=== PATIENT | female | born 1955 | race Hispanic/Latino ===

== ENCOUNTER 2018-12-18 14:53 | Emergency (ER) | payer MEDICARE ==
[~2018-12-18] VITALS: Ht 160 cm; Wt 90.7 kg
[~2018-12-18 14:53] MED LIST: ATORVASTATIN CA80 MG PO; BENAZEPRIL-HCT1 EAC3 PO; CEFUROXIME250 MG PO; DIFLUCAN100 MG PO; ESTRADIOL1 MG PO; GABAPENTIN300 MG PO; GLIPIZIDE5 MG PO; KLONOPIN0.5 MG PO; LOSARTAN POTAS100 MG PO; METFORMIN HCL1000 MG PO; NOVOLOG MI100 UNIT/1 SQ; OMEPRAZOLE40 MG PO; PANTOPRAZOLE SO40 MG PO; VENLAFAXINE H37.5 MG PO; ZOLOFT50 MG PO
--- NOTE | 2018-12-18 15:45 | NUR ---
RADIOLOGY AT BEDSIDE FOR CXR AT THIS TIME.
[2018-12-18 15:51] LABS: BASOPHILS # (AUTO) 0.1 (0.0-0.1); BASOPHILS % 0.7 % (0.0-1.0); EOSINOPHILS # (AUTO) 0.3 (0.0-0.4); EOSINOPHILS % 3.3 % (0.0-6.0); HEMOGLOBIN 13.6 g/dL (12.0-16.0); LYMPHOCYTES # (AUTO) 1.5 (1.0-3.2); LYMPHOCYTES % 19.8 % (18.0-39.1); MEAN CORPUSCULAR HEMOGLOBIN 29.2 pg (28-32); MEAN CORPUSCULAR HGB CONC 33.2 g/dL (31-35); MEAN CORPUSCULAR VOLUME 88.2 fL (81-99); MONOCYTES # (AUTO) 0.4 (0.2-0.8); MONOCYTES % 4.7 % (4.4-11.3); NEUTROPHILS # (AUTO) 5.3 (2.1-6.9); NEUTROPHILS % 71.2 % (38.7-80.0); PLATELET COUNT 232 x10e3/uL (140-360); RED BLOOD COUNT 4.65 x10e6/uL (3.6-5.1); RED CELL DISTRIBUTION WIDTH 12.9 % (11.7-14.4)
[2018-12-18 15:58] LABS: INR 0.91; PARTIAL THROMBOPLASTIN TIME 28.1 seconds (23.8-35.5); PROTHROMBIN TIME 12.7 seconds (11.9-14.5)
[2018-12-18 16:10] LABS: ALANINE AMINOTRANSFERASE 40 IU/L (0-55); ALBUMIN 3.3 g/dL (3.5-5.0); ALKALINE PHOSPHATASE 160 IU/L (40-150); ANION GAP 12.1 mmol/L (8-16); BLOOD UREA NITROGEN 14 mg/dL (7-26); BUN/CREATININE RATIO 16 (6-25); CARBON DIOXIDE 26 mmol/L (22-29); CHLORIDE 97 mmol/L (98-107); CREATINE KINASE 35 IU/L (29-168); CREATININE, SERUM 0.87 mg/dL (0.57-1.11); EST GLOMERULAR FILTRATION RATE > 60 ML/MIN (60-); POTASSIUM 4.1 mmol/L (3.5-5.1); SODIUM 131 mmol/L (136-145)
[2018-12-18 16:12] LABS: GLUCOSE 477 mg/dL (74-118)
[2018-12-18] MEDS ORDERED: INSULIN REGULAR, HUMAN 100 UNIT/1 ML 3ML VIAL SQ ONE (16:15)
[2018-12-18 16:20] LABS: CLARITY,URINE HAZY (CLEAR); COLOR,URINE YELLOW (YELLOW); LEUKOCYTE ESTERASE ,URINE TRACE (NEGATIVE); NITRITE,URINE NEGATIVE (NEGATIVE)
[2018-12-18 16:21] LABS: BILIRUBIN,URINE NEGATIVE (NEGATIVE); KETONES,URINE NEGATIVE (NEGATIVE); PROTEIN,URINE DIPSTICK NEGATIVE (NEGATIVE); URINE UROBILINOGEN 0.2 mg/dL (0.2 - 1)
[2018-12-18 16:22] LABS: BACTERIA,URINE MANY /HPF; EPITHELIAL CELLS,URINE MODERATE /LPF
--- NOTE | 2018-12-18 16:26 | Diagnostic Imaging Report ---
EXAMINATION: CHEST SINGLE (PORTABLE) INDICATION: Chest pain. Left-sided chest pain near the breasts. COMPARISON: None FINDINGS: AP view TUBES and LINES: None. LUNGS: Lungs are well inflated. Bilateral peribronchial cuffing. There is no evidence of pneumonia or pulmonary edema. PLEURA: No pleural effusion or pneumothorax. HEART AND MEDIASTINUM: The cardiomediastinal silhouette is unremarkable. BONES AND SOFT TISSUES: No acute osseous lesion. Soft tissues are unremarkable. UPPER ABDOMEN: No free air under the diaphragm. IMPRESSION: 1. Suboptimal exam secondary to lung inspiration and mildly breathing motion artifact. 2. Bilateral peribronchial cuffing, which could represent viral etiology or reactive airway disease. Signed by: Dr. Gelacio Vargas M.D. on 12/18/2018 4:22 PM
[2018-12-18 17:46] VITALS: BP 147/72
== END 2018-12-18 17:55 | disposition left against medical advice (07) ==
LOC: ER 14:53
DX: R07.89 Other chest pain (principal); E11.65 Type 2 diabetes mellitus with hyperglycemia; E78.5 Hyperlipidemia, unspecified; F41.9 Anxiety disorder, unspecified; F32.9 Major depressive disorder, single episode, unspecified
CPT/HCPCS: 36415; 71045; 80053; 81001; 82550; 82553; 83880; 84484; 85025; 85610; 85730; 93005; 99284; J1817

== ENCOUNTER 2019-01-17 13:03 | Emergency (ER) | payer MEDICARE ==
[~2019-01-17] VITALS: Ht 160 cm; Wt 90.7 kg
--- OUTSIDE RECORDS SUMMARY | 2019-01-17 13:05 | XMS REPORT ---
Author Author [facility] Address Unknown Phone Unavailable Care Team Providers Care Editor Magazine Name Role Phone TONYAmador SULLIVAN Unavailable Unavailable Problems This patient has no known problems. Allergies, Adverse Reactions, Alerts This patient has no known allergies or adverse reactions. Medications This patient has no known medications. Results Test Description Test Time Test Comments Text Results Atomic Results Result Comments CHEST SINGLE (PORTABLE) 2018-12-18 16:21:00 [place] [address] Patient Name: LEIA MUELLER MR #: [id number] : 1955 Age/Sex: 63/F Req #: [id number] Adm Physician: Ordered by: IVETT SOFIA HOT BALLER Report #: [id number] Location: ER Room/Bed: Procedure: [id number] DX/CHEST SINGLE (PORTABLE) Exam Date: 12/18/18 Exam Time: 1548 REPORT STATUS: Signed EXAMINATION: CHEST SINGLE (PORTABLE) INDIC ATION: Chest pain. Left-sided chest pain near the breasts. COMPARISON: None FINDINGS: AP view TUBES and LINES: None. LUNGS: Lungs are well inflated. Bilateral peribronchial cuffing. There is no evidence of pneumonia or pulmonary edema. PLEURA: No pleural effusion or pneumothorax. HEART AND MEDIASTINUM: The cardiomediastinal silhouette is unremarkable. BONES AND SOFT TISSUES: No acute osseous lesion. Soft tissues are unremarkable. UPPER ABDOMEN: No free air under the diaphragm. IMPRESSION: 1. Suboptimal exam secondary to lung inspiration and mildly breathing motion artifact. 2. Bilateral peribronchial cuffing, which could represent viral etiology or reactive airway disease. Signed by: Dr. Catarina Vargas M.D. on 12/18/2018 4:22 PM Dictated By: CATARINA VARGAS MD 21 Transcribed By: CEE on 12/18/181621 COPY TO: IVETT SOFIA NP
[2019-01-17] MEDS ORDERED: KETOROLAC TROMETHAMINE 30 MG/ML VIAL IV STA (13:23)
[2019-01-17] MEDS ORDERED: ASPIRIN 81 MG CHEW TAB PO ONE (13:30)
[2019-01-17 14:27] LABS: BASOPHILS # (AUTO) 0.1 (0.0-0.1); BASOPHILS % 0.4 % (0.0-1.0); EOSINOPHILS # (AUTO) 0.1 (0.0-0.4); HEMATOCRIT 38.3 % (34.2-44.1); HEMOGLOBIN 12.9 g/dL (12.0-16.0); LYMPHOCYTES # (AUTO) 1.8 (1.0-3.2); LYMPHOCYTES % 15.7 % (18.0-39.1); MEAN CORPUSCULAR HEMOGLOBIN 29.5 pg (28-32); MEAN CORPUSCULAR HGB CONC 33.7 g/dL (31-35); MEAN CORPUSCULAR VOLUME 87.6 fL (81-99); MONOCYTES # (AUTO) 0.5 (0.2-0.8); MONOCYTES % 4.1 % (4.4-11.3); NEUTROPHILS # (AUTO) 8.9 (2.1-6.9); NEUTROPHILS % 78.4 % (38.7-80.0); PLATELET COUNT 274 x10e3/uL (140-360); RED BLOOD COUNT 4.37 x10e6/uL (3.6-5.1); RED CELL DISTRIBUTION WIDTH 13.3 % (11.7-14.4)
[2019-01-17 14:37] LABS: INR 0.91; PROTHROMBIN TIME 12.7 seconds (11.9-14.5)
[2019-01-17 14:38] LABS: PARTIAL THROMBOPLASTIN TIME 27.1 seconds (23.8-35.5)
[2019-01-17 14:45] LABS: ALBUMIN 3.1 g/dL (3.5-5.0); ALBUMIN/GLOBULIN RATIO 0.9 (0.8-2.0); ANION GAP 10.9 mmol/L (8-16); CALCIUM 9.4 mg/dL (8.4-10.2); CREATININE, SERUM 1.08 mg/dL (0.57-1.11); MAGNESIUM 1.8 MG/DL (1.3-2.1); POTASSIUM 3.9 mmol/L (3.5-5.1)
--- NOTE | 2019-01-17 14:48 | Diagnostic Imaging Report ---
EXAMINATION: PA and lateral views of the chest. COMPARISON: 12/18/2018 CLINICAL HISTORY: Chest pain DISCUSSION: Lungs are well-inflated. Linear opacity in the lingula compatible with subsegmental atelectasis. No airspace consolidation, pleural effusion, or pneumothorax. Tortuous thoracic aorta. Otherwise normal cardiomediastinal contour. No acute osseous abnormalities. Right upper quadrant surgical clips likely related to prior cholecystectomy. IMPRESSION: Subsegmental atelectasis in the lingula. Otherwise no acute cardiopulmonary abnormality. Signed by: Dr. Nemesio Armenta M.D. on 01/17/2019 2:44 PM
[2019-01-17 14:52] LABS: CREATINE KINASE MB 0.5 ng/mL (0-5.0)
[2019-01-17] MEDS ORDERED: INSULIN REGULAR, HUMAN 100 UNIT/1 ML 3ML VIAL SQ ONE (15:00)
[2019-01-17 16:08] LABS: BILIRUBIN,URINE NEGATIVE (NEGATIVE); CLARITY,URINE SL CLOUDY (CLEAR); COLOR,URINE YELLOW (YELLOW); KETONES,URINE NEGATIVE (NEGATIVE); LEUKOCYTE ESTERASE ,URINE NEGATIVE (NEGATIVE); NITRITE,URINE POSITIVE (NEGATIVE); PROTEIN,URINE DIPSTICK NEGATIVE (NEGATIVE); URINE UROBILINOGEN 0.2 mg/dL (0.2 - 1)
[2019-01-17] MEDS ORDERED: SODIUM CHLORIDE 0.9% 1000ML 1,000 ML IV STA (16:09)
[2019-01-17] MEDS ORDERED: SODIUM CHLORIDE 0.9% 1000ML 1,000 ML IV ONE (16:15)
[2019-01-17 16:20] LABS: BACTERIA,URINE MANY /HPF; WBC,URINE (MAN) 0-5 /HPF (0-5)
[2019-01-17 16:21] LABS: EPITHELIAL CELLS,URINE FEW /LPF
== END 2019-01-17 17:30 | disposition home or self-care (01) ==
LOC: ER 13:03
DX: R07.89 Other chest pain (principal); I10 Essential (primary) hypertension; E11.9 Type 2 diabetes mellitus without complications; E78.5 Hyperlipidemia, unspecified; F41.9 Anxiety disorder, unspecified; F32.9 Major depressive disorder, single episode, unspecified; Z87.440 Personal history of urinary (tract) infections; Z79.4 Long term (current) use of insulin
CPT/HCPCS: 36415; 71046; 80053; 81001; 82550; 82553; 82948; 83735; 83880; 84484; 85025; 85610; 85730; 87400; 93005; 99284; J1885; J7030

== ENCOUNTER 2019-04-03 10:36 | Emergency (ER) | payer MEDICARE ==
[~2019-04-03] VITALS: Ht 160 cm; Wt 90.7 kg
[2019-04-03] MEDS ORDERED: SODIUM CHLORIDE 0.9% 1000ML 1,000 ML IV STA (10:53)
[2019-04-03] MEDS ORDERED: LIDOCAINE VISC 2% SOLN 15 ML UDC PO ONE (11:30)
[2019-04-03] MEDS ORDERED: MAGNESIUM/ALUMINUM/SIMETHICONE 30 ML UDC PO ONE (11:30)
[2019-04-03] MEDS ORDERED: BELLADONNA ALK/PHENOBARBITAL 5 ML UDC PO ONE (11:30)
[2019-04-03] MEDS ORDERED: PANTOPRAZOLE 40 MG 10ML VIAL IV ONE (11:30)
[2019-04-03 12:40] LABS: BASOPHILS # (AUTO) 0.1 (0.0-0.1); BASOPHILS % 0.5 % (0.0-1.0); EOSINOPHILS # (AUTO) 0.2 (0.0-0.4); EOSINOPHILS % 1.7 % (0.0-6.0); HEMATOCRIT 39.7 % (34.2-44.1); HEMOGLOBIN 13.5 g/dL (12.0-16.0); LYMPHOCYTES # (AUTO) 1.8 (1.0-3.2); LYMPHOCYTES % 17.8 % (18.0-39.1); MEAN CORPUSCULAR HEMOGLOBIN 29.2 pg (28-32); MEAN CORPUSCULAR VOLUME 85.7 fL (81-99); MONOCYTES # (AUTO) 0.3 (0.2-0.8); MONOCYTES % 3.3 % (4.4-11.3); NEUTROPHILS # (AUTO) 7.8 (2.1-6.9); NEUTROPHILS % 76.4 % (38.7-80.0); PLATELET COUNT 291 x10e3/uL (140-360); RED BLOOD COUNT 4.63 x10e6/uL (3.6-5.1); RED CELL DISTRIBUTION WIDTH 13.6 % (11.7-14.4)
[2019-04-03] MEDS ORDERED: DICYCLOMINE HCL 20 MG/2 ML VIAL IM ONE (12:45)
--- NOTE | 2019-04-03 12:46 | Diagnostic Imaging Report ---
EXAM: CHEST SINGLE (PORTABLE), AP Portable DATE: 04/03/2019 Time stamp on exam: 11:25 AM INDICATION: Abdominal pain COMPARISON: None FINDINGS: LINES/TUBES: None LUNGS: No consolidations or edema. Linear scarring in the left costophrenic angle. PLEURA: No effusions or pneumothorax. HEART AND MEDIASTINUM: Normal size and contour. BONES AND SOFT TISSUES: No acute findings. IMPRESSION: No acute thoracic abnormality. Signed by: Dr. Mele Rhoades DO on 04/03/2019 12:42 PM
[2019-04-03 12:51] LABS: INR 0.93
[2019-04-03 12:52] LABS: PARTIAL THROMBOPLASTIN TIME 29.6 seconds (23.8-35.5)
[2019-04-03] MEDS ORDERED: MORPHINE SULFATE INJ 4 MG/ML INJ 1ML IV ONE (13:00)
[2019-04-03] MEDS ORDERED: CLONIDINE HCL 0.1 MG TAB PO ONE (13:00)
[2019-04-03] MEDS ORDERED: ONDANSETRON HCL INJ 2MG/ML 2ML 2 MG/ML VIAL IV ONE (13:00)
[2019-04-03 13:06] LABS: ALANINE AMINOTRANSFERASE 26 IU/L (0-55); ALBUMIN 3.6 g/dL (3.5-5.0); ALKALINE PHOSPHATASE 152 IU/L (40-150); AMYLASE 45 U/L (25-125); BLOOD UREA NITROGEN 10 mg/dL (7-26); BUN/CREATININE RATIO 12 (6-25); CALCIUM 9.2 mg/dL (8.4-10.2); CARBON DIOXIDE 28 mmol/L (22-29); CREATINE KINASE 60 IU/L (29-168); CREATININE, SERUM 0.84 mg/dL (0.57-1.11); EST GLOMERULAR FILTRATION RATE > 60 ML/MIN (60-); GLUCOSE 296 mg/dL (74-118); LIPASE 9 U/L (8-78)
[2019-04-03 13:15] LABS: CHLORIDE 97 mmol/L (98-107); SODIUM 135 mmol/L (136-145)
[2019-04-03 13:20] LABS: BILIRUBIN,URINE NEGATIVE (NEGATIVE); CLARITY,URINE CLEAR (CLEAR); COLOR,URINE YELLOW (YELLOW); KETONES,URINE NEGATIVE (NEGATIVE); LEUKOCYTE ESTERASE ,URINE MODERATE (NEGATIVE); NITRITE,URINE NEGATIVE (NEGATIVE); PROTEIN,URINE DIPSTICK NEGATIVE (NEGATIVE); URINE UROBILINOGEN 0.2 mg/dL (0.2 - 1)
[2019-04-03 13:38] LABS: BACTERIA,URINE MANY /HPF; EPITHELIAL CELLS,URINE FEW /LPF
[2019-04-03] MEDS ORDERED: SODIUM CHLORIDE 0.9% 50ML 50 ML ONE (15:02)
[2019-04-03] MEDS ORDERED: IOPAMIDOL 370 MG/ML 200 ML INFUS..BTL INJ ONE (15:02)
[2019-04-03] MEDS ORDERED: CYMBALTA20 MG PO (15:08)
[2019-04-03] MEDS ORDERED: LANTUS 3ML100 UNITS/ SQ ×2 (15:08)
--- NOTE | 2019-04-03 15:32 | Diagnostic Imaging Report ---
EXAM: CT of the abdomen and pelvis WITH contrast HISTORY: GORGE/LUQ ABD PAIN, chills, left upper quadrant pain, history of cholecystectomy, hysterectomy, tubal ligation COMPARISON: None. TECHNIQUE: The abdomen and pelvis were scanned utilizing a multidetector helical scanner. Coronal and sagittal reformats are provided. PROTOCOL: Routine IV CONTRAST: 100 cc of Isovue-370. ORAL CONTRAST: Water RADIATION DOSE: Total DLP: 828.78 mGy*cm Estimated effective dose: (DLP x 0.015 x size factor) Dose modulation, iterative reconstruction, and/or weight based adjustment of the mA/kV was utilized to reduce the radiation dose to as low as reasonably achievable. COMPLICATIONS: None FINDINGS: LOWER THORAX: Mild bilateral lower lobe atelectasis versus scarring. HEPATOBILIARY: Diffusely decreased attenuation of the liver. No mass. No biliary dilation. Metallic clips in the right upper quadrant of the abdomen are compatible with prior cholecystectomy. SPLEEN: No splenomegaly. PANCREAS: No focal masses or ductal dilatation. Diffuse parenchymal atrophy. ADRENALS: No discrete adrenal nodule. KIDNEYS/URETERS: No hydronephrosis, stones, or definite solid mass lesions. PELVIC ORGANS/BLADDER: The visualized pelvic organs appear unremarkable. GI TRACT: No dilation or wall thickening identified. The appendix is normal. The stomach is decompressed, which limits evaluation. PERITONEUM / RETROPERITONEUM: No free air or fluid. LYMPH NODES: No pathologically enlarged lymph node. VESSELS: Mild scattered atherosclerotic vascular calcifications. BONES: No aggressive osseous lesion or acute fracture. Mild to moderate multifocal degenerative changes. SOFT TISSUES: A small fat-containing umbilical hernia, without associated inflammatory changes to suggest vascular compromise. IMPRESSION: 1. No acute CT abnormality. 2. Hepatic steatosis. 3. Small fat-containing umbilical hernia. Signed by: Dr. Ezequiel Funes D.O., M.M.M. on 04/03/2019 3:29 PM
--- NOTE | 2019-04-05 17:47 | NUR ---
Pt's urine culture noted, medication changed to Macrobid 100 mg PO BID Pt informed of prescription change and urine culture results. Instructed to stop taking origianally prescription and to start Macrobid. [facility] [place] called [phone]
== END 2019-04-03 17:36 | disposition home or self-care (01) ==
LOC: ER 10:36
DX: N30.90 Cystitis, unspecified without hematuria (principal); K29.50 Unspecified chronic gastritis without bleeding; I10 Essential (primary) hypertension; E11.9 Type 2 diabetes mellitus without complications; F41.8 Other specified anxiety disorders; K21.9 Gastro-esophageal reflux disease without esophagitis; E78.5 Hyperlipidemia, unspecified; M19.90 Unspecified osteoarthritis, unspecified site; Z85.42 Personal history of malignant neoplasm of other parts of uterus; Z79.4 Long term (current) use of insulin
CPT/HCPCS: 36415; 71045; 74177; 80053; 81001; 82150; 82550; 82553; 83690; 83735; 84484; 85025; 85610; 85730; 87086; 87186; 93005; 99284; C9113; J0500; J7030; Q9967

== ENCOUNTER 2019-07-16 11:45 | Emergency (ER) | payer MEDICARE ==
[~2019-07-16] VITALS: Ht 160 cm; Wt 90.7 kg
[~2019-07-16 11:45] MED LIST changes: +CYMBALTA20 MG PO; +LANTUS 3ML100 UNITS/ SQ
[2019-07-16] MEDS ORDERED: DIATRIZOATE MEGL/DIATRIZOA SOD 30 ML BTL PO ONE (12:34)
[2019-07-16] MEDS ORDERED: PRAVASTATIN SOD40 MG PO (12:38)
[2019-07-16] MEDS ORDERED: ONDANSETRON ODT8 MG PO (12:38)
[2019-07-16 12:53] LABS: BASOPHILS # (AUTO) 0.1 (0.0-0.1); BASOPHILS % 0.7 % (0.0-1.0); EOSINOPHILS # (AUTO) 0.2 (0.0-0.4); HEMATOCRIT 42.6 % (34.2-44.1); HEMOGLOBIN 14.3 g/dL (12.0-16.0); LYMPHOCYTES # (AUTO) 2.4 (1.0-3.2); LYMPHOCYTES % 27.9 % (18.0-39.1); MEAN CORPUSCULAR HEMOGLOBIN 29.2 pg (28-32); MEAN CORPUSCULAR HGB CONC 33.6 g/dL (31-35); MEAN CORPUSCULAR VOLUME 87.1 fL (81-99); MONOCYTES # (AUTO) 0.3 (0.2-0.8); MONOCYTES % 3.4 % (4.4-11.3); NEUTROPHILS # (AUTO) 5.6 (2.1-6.9); NEUTROPHILS % 65.6 % (38.7-80.0); PLATELET COUNT 325 x10e3/uL (140-360); RED BLOOD COUNT 4.89 x10e6/uL (3.6-5.1); RED CELL DISTRIBUTION WIDTH 13.2 % (11.7-14.4)
[2019-07-16 13:03] LABS: ALANINE AMINOTRANSFERASE 35 IU/L (0-55); ALBUMIN 3.3 g/dL (3.5-5.0); ALBUMIN/GLOBULIN RATIO 0.9 (0.8-2.0); ALKALINE PHOSPHATASE 121 IU/L (40-150); ANION GAP 12.7 mmol/L (8-16); BLOOD UREA NITROGEN 10 mg/dL (7-26); BUN/CREATININE RATIO 12 (6-25); CALCIUM 9.4 mg/dL (8.4-10.2); CARBON DIOXIDE 29 mmol/L (22-29); CHLORIDE 101 mmol/L (98-107); CREATINE KINASE 32 IU/L (29-168); CREATININE, SERUM 0.82 mg/dL (0.57-1.11); EST GLOMERULAR FILTRATION RATE > 60 ML/MIN (60-); GLUCOSE 176 mg/dL (74-118); POTASSIUM 3.7 mmol/L (3.5-5.1); SODIUM 139 mmol/L (136-145)
[2019-07-16 13:10] LABS: BILIRUBIN,URINE NEGATIVE (NEGATIVE); CLARITY,URINE CLOUDY (CLEAR); COLOR,URINE YELLOW (YELLOW); KETONES,URINE NEGATIVE (NEGATIVE); LEUKOCYTE ESTERASE ,URINE MODERATE (NEGATIVE); NITRITE,URINE NEGATIVE (NEGATIVE); PROTEIN,URINE DIPSTICK NEGATIVE (NEGATIVE); URINE UROBILINOGEN 0.2 mg/dL (0.2 - 1)
[2019-07-16 13:17] LABS: WBC,URINE (MAN) >50 /HPF (0-5)
[2019-07-16 13:18] LABS: BACTERIA,URINE MANY /HPF; EPITHELIAL CELLS,URINE MANY /LPF; RBC,URINE 21-50 /HPF (0-5)
[2019-07-16] MEDS ORDERED: ONDANSETRON HCL INJ 2MG/ML 2ML 2 MG/ML VIAL IV STA (13:22)
[2019-07-16] MEDS ORDERED: CEFTRIAXONE SOD 1 GM/NS 50 ML 50 ML IV ONE (13:30)
[2019-07-16] MEDS ORDERED: FENTANYL CITRATE/PF 100MCG/2 ML INJ IV ONE (13:30)
--- NOTE | 2019-07-16 15:26 | Diagnostic Imaging Report ---
EXAM: CT Abdomen and Pelvis WITH intravenous contrast INDICATION: Abdominal pain, nausea COMPARISON: CT abdomen and pelvis of 04/03/2019 TECHNIQUE: Abdomen and pelvis were scanned utilizing a multidetector helical scanner from the lung base to the pubic symphysis after administration of IV contrast. Coronal and sagittal reformations were obtained. Routine protocol was performed. Scan was performed during portal venous phase. IV CONTRAST: 100mL of Isovue 370 ORAL CONTRAST: Gastrografin RADIATION DOSE: Total DLP: 841.9 mGy*cm Dose modulation, iterative reconstruction, and/or weight based adjustment of the mA/kV was utilized to reduce the radiation dose to as low as reasonably achievable. FINDINGS: LOWER THORAX: No focal consolidation HEPATOBILIARY: Diffuse hepatic steatosis. No focal liver lesion. No biliary ductal dilation. Status post cholecystectomy. SPLEEN: No splenomegaly. PANCREAS: No focal masses or ductal dilatation. ADRENALS: No adrenal nodules. KIDNEYS/URETERS: No hydronephrosis, stones, or solid mass lesions. PELVIC ORGANS/BLADDER: Status post hysterectomy. PERITONEUM / RETROPERITONEUM: No free air or fluid. LYMPH NODES: No lymphadenopathy. VESSELS: Mild scattered atherosclerotic calcifications of the nonaneurysmal abdominal aorta and major branches. GI TRACT: No abnormal bowel wall thickening. No bowel obstruction. BONES AND SOFT TISSUES: No acute osseous injury. No suspicious lytic or blastic lesions. Mild degenerative changes of the visualized spine. IMPRESSION: No acute findings in the abdomen or pelvis. Diffuse hepatic steatosis. Signed by: Leif Infante MD on 07/16/2019 3:23 PM
[2019-07-16 15:44] VITALS: BP 153/80
[2019-07-16] MEDS ORDERED: IOPAMIDOL 370 MG/ML 200 ML INFUS..BTL INJ ONE (16:59)
[2019-07-16] MEDS ORDERED: SODIUM CHLORIDE 0.9% 50ML 50 ML ONE (16:59)
== END 2019-07-16 15:50 | disposition home or self-care (01) ==
LOC: ER 11:45
DX: R10.31 Right lower quadrant pain (principal); R11.2 Nausea with vomiting, unspecified; N30.91 Cystitis, unspecified with hematuria; I10 Essential (primary) hypertension; E11.9 Type 2 diabetes mellitus without complications
CPT/HCPCS: 36415; 74177; 80053; 81001; 82550; 82553; 82948; 84484; 85025; 99284; J0696; J2405; J3010; Q9967

== ENCOUNTER 2019-12-11 14:55 | Emergency (ER) | payer MEDICARE ==
[~2019-12-11] VITALS: Ht 160 cm; Wt 90.7 kg
[~2019-12-11 14:55] MED LIST changes: +ONDANSETRON ODT8 MG PO; +PRAVASTATIN SOD40 MG PO
[2019-12-11] MEDS ORDERED: PHENAZOPYRIDINE HCL 100 MG TAB PO ONE (15:30)
[2019-12-11] MEDS ORDERED: ACETAMINOPHEN/CODEINE 300MG - 30MG TAB PO ONE (15:30)
[2019-12-11 15:31] LABS: CLARITY,URINE CLOUDY (CLEAR); COLOR,URINE YELLOW (YELLOW)
[2019-12-11 15:32] LABS: BILIRUBIN,URINE NEGATIVE (NEGATIVE); KETONES,URINE NEGATIVE (NEGATIVE); LEUKOCYTE ESTERASE ,URINE NEGATIVE (NEGATIVE); NITRITE,URINE POSITIVE (NEGATIVE); PROTEIN,URINE DIPSTICK NEGATIVE (NEGATIVE); URINE UROBILINOGEN 0.2 mg/dL (0.2 - 1)
[2019-12-11 15:38] LABS: BACTERIA,URINE MANY /HPF; EPITHELIAL CELLS,URINE MANY /LPF; RBC,URINE 0-5 /HPF (0-5)
[2019-12-11] MEDS ORDERED: CEFTRIAXONE SOD 1 GM VIAL IM ONE (16:00)
[2019-12-11 16:30] VITALS: BP 140/80
== END 2019-12-11 16:49 | disposition home or self-care (01) ==
LOC: ER 15:34
DX: M54.5 Low back pain (principal); N39.0 Urinary tract infection, site not specified; I10 Essential (primary) hypertension; E11.9 Type 2 diabetes mellitus without complications; Z85.42 Personal history of malignant neoplasm of other parts of uterus
CPT/HCPCS: 81001; 87086; 87186; 99283; J0696

== ENCOUNTER 2019-12-11 18:18 | Emergency (ER) | payer MEDICARE ==
--- NOTE | 2019-12-11 18:58 | NUR ---
1822 AND 1830 CALLED AND NO ANSWER.
== END 2019-12-11 18:59 | disposition left against medical advice (07) ==
LOC: ER 18:18
DX: R69 Illness, unspecified (principal)

== ENCOUNTER 2020-02-28 07:45 | Observation (INO) | payer MEDICARE, OTHER ==
[~2020-02-28] VITALS: Ht 160 cm; Wt 90.7 kg
--- NOTE | 2020-02-28 08:11 | NUR ---
DR PEARSON RECEIVED EKG, PT SEEN BY . EMS REPORT AND EKG TO MD. PT PLACED ON FULL CARDIAC MONITORING, IV, EKG, UA ALL DONE. WARM BLANKETS GIVEN FOR COMFORT. PLAN OF CARE UPDATED TO PT.
[2020-02-28 08:22] LABS: BASOPHILS # (AUTO) 0.1 (0.0-0.1); BASOPHILS % 0.6 % (0.0-1.0); EOSINOPHILS # (AUTO) 0.2 (0.0-0.4); EOSINOPHILS % 2.7 % (0.0-6.0); HEMATOCRIT 40.6 % (34.2-44.1); HEMOGLOBIN 13.4 g/dL (12.0-16.0); LYMPHOCYTES # (AUTO) 2.4 (1.0-3.2); LYMPHOCYTES % 26.9 % (18.0-39.1); MEAN CORPUSCULAR HEMOGLOBIN 29.1 pg (28-32); MEAN CORPUSCULAR VOLUME 88.3 fL (81-99); MONOCYTES # (AUTO) 0.4 (0.2-0.8); MONOCYTES % 4.6 % (4.4-11.3); NEUTROPHILS # (AUTO) 5.7 (2.1-6.9); NEUTROPHILS % 64.9 % (38.7-80.0); PLATELET COUNT 308 x10e3/uL (140-360); RED CELL DISTRIBUTION WIDTH 13.2 % (11.7-14.4)
[2020-02-28 08:30] LABS: BILIRUBIN,URINE NEGATIVE (NEGATIVE); CLARITY,URINE CLEAR (CLEAR); COLOR,URINE STRAW (YELLOW); KETONES,URINE NEGATIVE (NEGATIVE); LEUKOCYTE ESTERASE ,URINE TRACE (NEGATIVE); NITRITE,URINE NEGATIVE (NEGATIVE); PROTEIN,URINE DIPSTICK NEGATIVE (NEGATIVE); URINE UROBILINOGEN 0.2 mg/dL (0.2 - 1)
[2020-02-28] MEDS ORDERED: ASPIRIN 81 MG CHEW TAB PO ONE (08:45)
[2020-02-28 08:54] LABS: ALANINE AMINOTRANSFERASE 17 IU/L (0-55); ALBUMIN 3.3 g/dL (3.5-5.0); ALBUMIN/GLOBULIN RATIO 0.9 (0.8-2.0); ALKALINE PHOSPHATASE 130 IU/L (40-150); ANION GAP 15.7 mmol/L (8-16); BLOOD UREA NITROGEN 17 mg/dL (7-26); BUN/CREATININE RATIO 19 (6-25); CARBON DIOXIDE 25 mmol/L (22-29); CHLORIDE 100 mmol/L (98-107); CREATINE KINASE 51 IU/L (29-168); CREATININE, SERUM 0.89 mg/dL (0.57-1.11); EST GLOMERULAR FILTRATION RATE > 60 ML/MIN (60-); GLUCOSE 390 mg/dL (74-118); POTASSIUM 3.7 mmol/L (3.5-5.1); SODIUM 137 mmol/L (136-145)
--- NOTE | 2020-02-28 09:40 | Diagnostic Imaging Report ---
X-ray chest AP portable History: Chest pain Comparison: 04/03/2019 Findings: Central airways unremarkable. Heart size borderline for this technique. Other mediastinal silhouettes unremarkable. Chronic left basilar linear opacity likely representing a scar. No pleural effusion. No pneumothorax. No other focal lung disease. Skeleton and extrathoracic soft tissues show no significant acute abnormality. Impression: No acute cardiopulmonary disease on this exam. Signed by: Ananda Mello MD on 02/28/2020 9:36 AM
--- NOTE | 2020-02-28 09:42 | NUR ---
Covid-19 swab obtained.
[2020-02-28 10:03] LABS: BACTERIA,URINE MANY /HPF; EPITHELIAL CELLS,URINE FEW /LPF; RBC,URINE 0-5 /HPF (0-5)
--- NOTE | 2020-02-28 10:43 | Emergency Department Note ---
History of Present Illnes History of Present Illness Chief Complaint: General Medicine Complaints History of Present Illness This is a 64 year old female arrived to the ED with complaints of chest pain and shortness of breath woker her up from her sleep at 5am. Chief Complaint Comment AWOKE WITH BACK PAIN ACROSS LOWER BACK, PAIN NON RADIATING AT STERNUM, CHEST PAIN, SOB, DRY COUGH. NO FEVERS. AAOX4. AMBULATORY. GUARDING TO LOWER BACK. DENIES INJURY. STATES URG/FREQ NO DYSURIA. 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 Any updates have been documented here. Past Medical History Recent Fever: No Clinical Suspicion of Infectio: No New/Unexplained Change in Ment: No Past Medical History: Hypertension, Diabetes, Cancer, UTI's, Anxiety, Depression, GERD, Hyperlipedemia Other Medical History: ARTHRITIS UTERINE CANCER Past Surgical History: Cholecysctectomy, Hysterectomy, Tubal Ligation, Cataract Removal Other Surgery: CATARACTS TUBAL Laproscopic surgery Social History Smoking Cessation: Never Smoker Counseling Performed: No Alcohol Use: None Any Illegal Drug Use: No TB Exposure/Symptoms: No Physically hurt or threatened: No Other Last Tetanus: UTD Any Pre-Existing Lines (PICC,: Yes (PIV EMS) Is patient up to date on immun: Yes ("THINK SO") Last Flu: YES Last Pneumovax: YES Review of Systems Review of Systems Constitutional: no symptoms EENTM: no symptoms Cardiovascular: chest pain, palpitations Respiratory: dyspnea Gastrointestinal: no symptoms Genitourinary: no symptoms Musculoskeletal: no symptoms Neurological: no symptoms Psychological: no symptoms Endocrine: no symptoms Hematological/Lymphatic: no symptoms Review of other systems All other systems reviewed and negative. Physical Exam Related Data Allergies: Coded Allergies: promethazine (Verified Allergy, Unknown, ANXIETY, 04/03/19) tramadol (Verified Adverse Reaction, Mild, NAUSEA, 04/03/19) metoclopramide (Verified Adverse Reaction, Unknown, ANXIETY, 04/03/19) CLARIFIED W/ DR. JACKSON THAT PATIENT'S REACTION WAS ANXIETY. MD OKED TO CHANGE TO ADR. Triage Vital Signs Vital Signs Date Time Temp Pulse Resp B/P (MAP) Pulse Ox O2 Delivery O2 Flow Rate FiO2 02/28/20 07:45 98.7 105 28 170/100 100 Vital signs reviewed: Yes Physical Exam CONSTITUTIONAL Constitutional: well-developed, well-nourished HENT HENT: normocephalic, atraumatic, oropharynx clear/moist, nose normal HENT L/R: left ext ear normal, right ext ear normal EYES Eyes: PERRL, conjunctivae normal NECK Neck: ROM normal PULMONARY Pulmonary: effort normal, breath sounds normal CARDIOVASCULAR Cardiovascular: regular rhythm, heart sounds normal, capillary refill normal, normal rate GASTROINTESTINAL Abdominal: soft, nontender, bowel sounds normal GENITOURINARY Genitourinary: exam deferred SKIN Skin: warm, dry MUSCULOSKELETAL Musculoskeletal: ROM normal NEUROLOGICAL Neurological: alert, oriented x 3, no gross motor or sensory deficits PSYCHOLOGICAL Psychological: mood/affect normal, judgement normal Results Laboratory Result Diagram: 02/28/20 0800 02/28/20 0800 Laboratory Laboratory Tests Test 02/28/20 09:37 02/28/20 08:00 White Blood Count 8.75 x10e3/uL (4.8-10.8) Red Blood Count 4.60 x10e6/uL (3.6-5.1) Hemoglobin 13.4 g/dL (12.0-16.0) Hematocrit 40.6 % (34.2-44.1) Mean Corpuscular Volume 88.3 fL (81-99) Mean Corpuscular Hemoglobin 29.1 pg (28-32) Mean Corpuscular Hemoglobin Concent 33.0 g/dL (31-35) Red Cell Distribution Width 13.2 % (11.7-14.4) Platelet Count 308 x10e3/uL (140-360) Neutrophils (%) (Auto) 64.9 % (38.7-80.0) Lymphocytes (%) (Auto) 26.9 % (18.0-39.1) Monocytes (%) (Auto) 4.6 % (4.4-11.3) Eosinophils (%) (Auto) 2.7 % (0.0-6.0) Basophils (%) (Auto) 0.6 % (0.0-1.0) Neutrophils # (Auto) 5.7 (2.1-6.9) Lymphocytes # (Auto) 2.4 (1.0-3.2) Monocytes # (Auto) 0.4 (0.2-0.8) Eosinophils # (Auto) 0.2 (0.0-0.4) Basophils # (Auto) 0.1 (0.0-0.1) Absolute Immature Granulocyte (auto 0.03 x10e3/uL (0-0.1) Urine Color Straw (YELLOW) Urine Clarity Clear (CLEAR) Urine pH 7 (5 - 7) Urine Specific [place] 1.020 (1.010-1.025) Urine Protein Negative (NEGATIVE) Urine Glucose (UA) 2+ (NEGATIVE) Urine Ketones Negative (NEGATIVE) Urine Blood Trace (NEGATIVE) Urine Nitrite Negative (NEGATIVE) Urine Bilirubin Negative (NEGATIVE) Urine Urobilinogen 0.2 mg/dL (0.2 - 1) Urine Leukocyte Esterase Trace (NEGATIVE) Urine RBC 0-5 /HPF (0-5) Urine WBC 11-20 /HPF (0-5) Urine Epithelial Cells Few /LPF (NONE) Urine Bacteria Many /HPF (NONE) Sodium Level 137 mmol/L (136-145) Potassium Level 3.7 mmol/L (3.5-5.1) Chloride Level 100 mmol/L (98-107) Carbon Dioxide Level 25 mmol/L (22-29) Anion Gap 15.7 mmol/L (8-16) Blood Urea Nitrogen 17 mg/dL (7-26) Creatinine 0.89 mg/dL (0.57-1.11) Estimat Glomerular Filtration Rate > 60 ML/MIN (60-) BUN/Creatinine Ratio 19 (6-25) Glucose Level 390 mg/dL (74-118) Calcium Level 9.0 mg/dL (8.4-10.2) Total Bilirubin 0.3 mg/dL (0.2-1.2) Aspartate Amino Transf (AST/SGOT) 13 IU/L (5-34) Alanine Aminotransferase (ALT/SGPT) 17 IU/L (0-55) Alkaline Phosphatase 130 IU/L (40-150) Creatine Kinase 51 IU/L (29-168) Creatine Kinase MB 0.80 ng/mL (0-5.0) Troponin I < 0.001 ng/mL (0-0.300) B-Type Natriuretic Peptide 12.1 pg/mL (0-100) Total Protein 7.1 g/dL (6.5-8.1) Albumin 3.3 g/dL (3.5-5.0) Globulin 3.8 g/dL (2.3-3.5) Albumin/Globulin Ratio 0.9 (0.8-2.0) Lab results reviewed: Yes Imaging Imaging results reviewed: Yes Impressions Findings: Central airways unremarkable. Heart size borderline for this technique. Other mediastinal silhouettes unremarkable. Chronic left basilar linear opacity likely representing a scar. No pleural effusion. No pneumothorax. No other focal lung disease. Skeleton and extrathoracic soft tissues show no significant acute abnormality. Impression: No acute cardiopulmonary disease on this exam. 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 Clinical Decision Tools HEART Score HEART Score: HEART Score Response (Comments) Value History Moderately suspicious 1 EKG Normal 0 Age 45 - 65 1 Risk factors 3 or more risk factors OR hx of CAD 2 Troponin 1-3x normal limit Total 4 Assessment & Plan Assessment & Plan Final Impression: (1) Chest pain Assessment & Plan cbc, cmp, cardiac markers CXR High heart score Admission for stable angina and serial cardiac markers Last Vital Signs Date Time Temp Pulse Resp B/P (MAP) Pulse Ox O2 Delivery O2 Flow Rate FiO2 02/28/20 08:11 99 24 145/113 100 02/28/20 07:45 98.7 Home Meds Reported Medications Pravastatin Sodium (PRAVASTATIN SODIUM) 40 Mg Tablet, 40 MG PO HS 07/16/19 Ondansetron (ONDANSETRON ODT) 8 Mg Tab.rapdis, 4 MG PO Q6H PRN for NAUSEA 07/16/19 Insulin Glargine (LANTUS 3ML PEN) 100 Units/1 Ml Inj, 30 UNIT SQ HS 04/03/19 Duloxetine Hcl (CYMBALTA) 20 Mg Capcr, 20 MG PO HS, #30 CAP 04/03/19 Insuln Asp Prt/Insulin Aspart (NOVOLOG MIX 70-30 FLEXPEN SYRN) 100 Unit/1 Ml Insuln.pen, 20 UNITS SQ BID 05/21/17 Pantoprazole Sodium* (PROTONIX) 40 Mg Tablet.dr, 40 MG PO DAILY, TAB 01/19/17 Losartan Potassium (LOSARTAN POTASSIUM) 100 Mg Tablet, 100 MG PO DAILY, TAB 01/19/17 Glipizide (GLIPIZIDE) 5 Mg Tablet, 10 MG PO BID, TAB 01/19/17 Gabapentin (GABAPENTIN) 300 Mg Capsule, 600 MG PO TID, #60 CAP 06/29/15 Medications in the ED Aspirin 81 mg PRN ONCE PO Last administered on 02/28/20at 09:41; Admin Dose 81 MG; Start 02/28/20 at 08:45; Stop 02/28/20 at 09:19; Status DC PANFILO PEARSON DO February 28, 2020 10:43
[2020-02-28] MEDS ORDERED: NITROGLYCERIN 0.4 MG SUBL SL ONE (10:45)
--- NOTE | 2020-02-28 10:49 | NUR ---
unable to verify home medications. Patient unable to recall the names and dosages.
[2020-02-28] MEDS ORDERED: KETOROLAC TROMETHAMINE 30 MG/ML VIAL IV STA (12:14)
--- NOTE | 2020-02-28 13:30 | NUR ---
informed ER MD of patient blood glucose level. Was told that she would place order in for appropriate medication.
--- NOTE | 2020-02-28 13:45 | NUR ---
attempted to call report however unable to speak with anyone.
--- NOTE | 2020-02-28 13:52 | NUR ---
attempted to call report again spoke with nurse was informed that she would call back.
[2020-02-28] MEDS ORDERED: ACETAMINOPHEN 325 MG TAB PO PRN (14:00)
[2020-02-28] MEDS ORDERED: DEXTROSE 50% SYRINGE 50 ML IV PRN (14:00)
[2020-02-28 15:00] VITALS: BP 157/92
[2020-02-28 15:47] VITALS: BP 157/92
[2020-02-28] MEDS ORDERED: INSULIN ASPART 70/30 100 UNITS/ML VIAL SC SCH (16:30)
[2020-02-28] MEDS: INSULIN REGULAR, HUMAN 100 UNIT/1 ML 3ML VIAL SQ SCH ×2 (17:00→21:00)
[2020-02-28] MEDS: GABAPENTIN 300 MG CAP PO SCH ×2 (17:00→20:35)
[2020-02-28 17:25] LABS: CREATINE KINASE 46 IU/L (29-168)
[2020-02-28 20:00] VITALS: BP 151/80
[2020-02-28] MEDS: DULOXETINE HCL 20 MG DELAYED RELEASE PO SCH (20:34)
[2020-02-28] MEDS: PRAVASTATIN 20 MG TAB PO SCH (20:35)
[2020-02-28] MEDS ORDERED: NON-FORMULARY MEDICATION (Pravastatin Sodium 40 MG) PO SCH (21:00)
[2020-02-29] VITALS (8 sets, daily range): BP systolic 132–165; BP diastolic 73–93
--- NOTE | 2020-02-29 01:16 | History and Physical ---
PRIMARY CARE PHYSICIAN: Dr. Nargis Isaacs at [facility] CHIEF COMPLAINT: Chest pain and lower back pain. HISTORY OF PRESENT ILLNESS: This is a 64-year-old female with past medical history of hypertension, diabetes, anxiety, depression, high cholesterol, GERD, and arthritis, presented to the ER with complaints of chest pain and lower back pain that started suddenly at 5 a.m. this morning. According to the patient, the pain woke her up from sleep and midsternal with no radiation to her arms, upper back, or neck area. She reports feeling a little dizzy and was gasping for air, but denied any cough, fever, chills, vomiting, or abdominal pain. She reports having severe lower back pain, she denies any trauma or fall recently. No ill contacts. She denies any dysuria, hematuria, or weakness in the lower extremities. We will admit the patient for further evaluation. PAST MEDICAL HISTORY: 1. Hypertension. 2. Diabetes. 3. High cholesterol. 4. GERD. 5. Arthritis. 6. Anxiety and depression. PAST SURGICAL HISTORY: She reports cataract in both eyes, tubal ligation, and hysterectomy. FAMILY MEDICAL HISTORY: Reports both mother and father have diabetes. SOCIAL HISTORY: She denies any tobacco, alcohol, or illicit drug use, she is . Lives at home. ALLERGIES: SHE IS ALLERGIC TO METHYL CHLORPROPAMIDE, PROMETHAZINE, AND TRAMADOL. REVIEW OF SYSTEMS: GENERAL: No fever or chills. HEENT: No vision changes. LUNGS: Mild shortness of breath, but no cough. CARDIOVASCULAR: Chest pain reported. GI: Mild nausea, but no vomiting. No abdominal pain. NEUROLOGIC: Alert, mild dizziness. MUSCULOSKELETAL: Lower back pain. SKIN: No rash. PHYSICAL EXAMINATION: VITAL SIGNS: Temperature 98.6, pulse is 90, respirations 20, blood pressure 157/92, pulse ox is 100% on room air. GENERAL: No acute distress. HEENT: Normocephalic, atraumatic. NECK: Supple. LUNGS: Clear to auscultation. CARDIOVASCULAR: Regular rate and rhythm. GI: Soft and nontender. NEUROLOGIC: Alert, awake, and oriented x3. MUSCULOSKELETAL: Moves all extremities. No edema noted. SKIN: Dry and intact. PSYCH: Calm. LABORATORY DATA: WBC 8.75, hemoglobin 13.4, hematocrit 40.6, platelet 308. Sodium 137, potassium 3.7, BUN is 17, creatinine is 0.89, estimated GFR is greater than 60, glucose is 390, calcium 9.0, AST 13, ALT 17, creatine kinase is 51, CK-MB 0.80, troponin is less than 0.001 x2. BNP is 4.1. Urine is straw colored, clear with trace blood and trace leukocytes with wbc's 10-20 K and many bacteria. Coronavirus PCR is pending. Chest x-ray, no acute cardiopulmonary disease. IMPRESSION AND PLAN: 1. Chest pain rule out acute coronary syndrome. Troponin x2 are negative so far. A 12-lead EKG pending. Pain is most likely musculoskeletal as it is midsternal and induced by palpation. Continue to trend troponins. 2. Lower back pain. She denies any trauma or fall. We will check x-ray of the lumbar spine. No weakness in the lower extremities noted. 3. Diabetes with hyperglycemia. Blood sugar 390 upon arrival. We will continue with sliding scale insulin coverage and 70/30 20 units b.i.d. per home. 4. Hypertension. Resume her home dose of losartan 100 mg daily. 5. History of anxiety and depression. We will resume her dose of Cymbalta. 6. Hyperlipidemia. We will check fasting lipid panel. 7. History of gastroesophageal reflux disease. We will continue home dose of Protonix. 8. Questionable urinary tract infection. Urinalysis noted with leuks and wbc's 11-20 K. We will await on cultures as she is asymptomatic. 9. Deep vein thrombosis prophylaxis. Ambulatory, not indicated. Dictated by MIKO Washington Keerthi Cosme MD MY/MODL /[id number] Pt seen and examined on 02/28/20. Agree with the findings and plan as documented by MIKO Abarca. SHARIF
[2020-02-29 01:50] LABS: CREATINE KINASE 40 IU/L (29-168)
[2020-02-29 06:22] LABS: CHOL/HDL RATIO 2.6 (3.0-3.6)
[2020-02-29 06:44] LABS: CREATINE KINASE 40 IU/L (29-168)
[2020-02-29] MEDS: PANTOPRAZOLE SOD 40 MG TABEC PO SCH (08:47)
[2020-02-29] MEDS: INSULIN REGULAR, HUMAN 100 UNIT/1 ML 3ML VIAL SQ SCH ×2 (08:51→13:03)
[2020-02-29] MEDS: LOSARTAN POTASSIUM 100 MG TAB PO SCH (08:52)
[2020-02-29] MEDS: ASPIRIN 81 MG ENTERIC COATED PO SCH (08:52)
[2020-02-29] MEDS: GABAPENTIN 300 MG CAP PO SCH ×3 (08:53→21:00)
--- NOTE | 2020-02-29 09:14 | Diagnostic Imaging Report ---
Exam: Lumbar spine 3 views Clinical history: Low back pain Findings: There is no evidence of acute fracture or malalignment. Degenerative disc disease is noted throughout the lumbar spine most pronounced at L4-5 and L5-S1 levels with loss in disc heights, marginal osteophytes, and endplate sclerosis. The patient is status post cholecystectomy. Retained feces are noted throughout the colon. Impression: 1. No radiographic evidence of acute osseous injury. Degenerative changes as noted. Signed by: Dr. Luis Almaraz MD on 02/29/2020 9:11 AM
[2020-02-29] MEDS: CARVEDILOL 3.125 MG TAB PO SCH ×2 (11:23→16:24)
[2020-02-29] MEDS ORDERED: DESLORATADINE5 MG PO (11:32)
[2020-02-29] MEDS ORDERED: MELOXICAM7.5 MG PO (11:35)
[2020-02-29] MEDS ORDERED: BUSPIRONE HCL5 MG PO (11:36)
[2020-02-29] MEDS ORDERED: FAMOTIDINE20 MG PO (11:38)
[2020-02-29] MEDS ORDERED: LANTUS 3ML100 UNITS/ SC ×2 (11:40→11:41)
[2020-02-29] MEDS: MELOXICAM 7.5 MG TAB PO PRN (13:20)
[2020-02-29] MEDS ORDERED: CEFTRIAXONE SOD 1 GM/NS 50 ML 50 ML IV SCH (14:30)
[2020-02-29] MEDS ORDERED: SODIUM CHLORIDE 0.9% 250ML 250 ML ONE (15:58)
[2020-02-29] MEDS: INSULIN LISPRO 100 UNIT/1 ML 3ML VIAL SQ SCH ×2 (16:06→21:00)
[2020-02-29] MEDS: GLIPIZIDE 5 MG TAB PO SCH (16:23)
[2020-02-29] MEDS: BUSPIRONE HCL 5 MG TAB PO SCH (16:24)
--- NOTE | 2020-02-29 16:24 | Diagnostic Imaging Report ---
Exam: CT abdomen and pelvis Clinical history: Pyelonephritis Technique: Helical images of the abdomen and pelvis were obtained without contrast DOSE REDUCTION: The exams was performed according to the departmental dose-optimization program which includes automated exposure control, adjustment of the mA and/or kV according to patient size and/or use of iterative reconstruction technique. Findings: The lung bases are clear. There is no evidence of pleural effusion. The cardiac size is within normal limits. The liver, spleen, pancreas, adrenal glands, and kidneys are unremarkable. The gallbladder has been removed. The small and large bowels are normal in caliber without evidence of obstruction. The appendix is normal in caliber. The bladder is moderately distended. The uterus and ovaries are not visualized. There is no evidence of lymphadenopathy or free fluid. Aorta and IVC are normal in caliber. Degenerative changes are noted throughout the lumbar spine with loss in disc heights. Impression: 1. No CT evidence of pyelonephritis. However, IV contrast was not given, complete evaluation was not possible. 2. Status post hysterectomy. Signed by: Dr. Luis Almaraz MD on 02/29/2020 4:21 PM
[2020-02-29] MEDS: DOCUSATE SODIUM 100 MG CAP PO SCH (21:00)
[2020-02-29] MEDS ORDERED: INSULIN GLARGINE 100 UNITS/ML VIAL SC SCH (21:00)
[2020-02-29] MEDS: DULOXETINE HCL 20 MG DELAYED RELEASE PO SCH (21:00)
[2020-02-29] MEDS: PRAVASTATIN 20 MG TAB PO SCH (21:00)
--- NOTE | 2020-02-29 21:35 | Progress Note ---
DATE: 02/29/2020 CHIEF COMPLAINT: Lower back pain. SUBJECTIVE: The patient reports chest pain has resolved and now mainly complaining of lower back pain. She denies any shortness of breath, chest pain, fever, chills, dysuria, or hematuria. She does have right lower quadrant abdominal tenderness and severe lower back pain. PHYSICAL EXAMINATION: VITAL SIGNS: Temperature is 98.3, pulse is 87, respirations 20, blood pressure 154/89, and pulse ox is 100% on room air. GENERAL: No acute distress. HEENT: Normocephalic, atraumatic. LUNGS: Clear to auscultation. CARDIOVASCULAR: Regular rate and rhythm. GI: Soft with right lower quadrant tenderness. NEUROLOGIC: Alert, awake, and oriented x3. MUSCULOSKELETAL: Moves all extremities. No edema noted. SKIN: Dry and intact. LABORATORY DATA: Troponin x4 is negative. Urine culture shows gram-negative bacillus, pending sensitivity. IMAGING: Lumbar x-ray shows no radiographic evidence of acute osseous injury, degenerative changes noted. CT abdomen and pelvis shows no evidence of pyelonephritis. IMPRESSION AND PLAN: 1. Chest pain, rule out acute coronary syndrome. Troponin x4 negative. Chest pain has resolved. Most likely musculoskeletal. Pain improved after one dose IV Toradol in ER. 2. Lower back pain. X-ray of lumbar spine was negative for acute changes, but continues to complain of severe pain. CT abdomen and pelvis was negative. MRI of lumbar spine is ordered to further evaluate. 3. Urinary tract infection. Urine culture was positive for gram-negative bacillus. We will start on Rocephin and await on sensitivity. 4. Diabetes with hyperglycemia. We will continue with sliding scale insulin coverage and 70/30 b.i.d. We will resume her home dose of glipizide. 5. Hypertension. Resume home dose of losartan 100 daily. 6. History of anxiety and depression. Resumed dose of Cymbalta. 7. Hyperlipidemia. LDL 34, no need for statin at this time. 8. History of gastroesophageal reflux disease. We will continue Protonix. 9. History of arthritis. Resume meloxicam. 10. Deep venous thrombosis prophylaxis, ambulatory not indicated. Plan is to continue current treatment. We will obtain MRI of the lumbar spine to further evaluate her back pain. Give Carvedilol for her elevated blood pressure. Dictated by Mayelin Abarca, ANP Yiching MD ESTER Chen/DAE /[id number] Pt seen and examined. Agree with the findings and plan documented by MIKO Abarca. SHARIF
[2020-03-01] VITALS: BP 148/77
[2020-03-01 04:00] VITALS: BP 128/80
[2020-03-01 08:20] VITALS: BP 140/78
[2020-03-01] MEDS: INSULIN LISPRO 100 UNIT/1 ML 3ML VIAL SQ SCH ×2 (08:28→11:44)
[2020-03-01] MEDS ORDERED: INSULIN GLARGINE 100 UNITS/ML VIAL SC SCH (09:00)
[2020-03-01 09:05] VITALS: BP 140/78
[2020-03-01] MEDS: GABAPENTIN 300 MG CAP PO SCH (09:05)
[2020-03-01] MEDS: BUSPIRONE HCL 5 MG TAB PO SCH (09:05)
[2020-03-01] MEDS: DOCUSATE SODIUM 100 MG CAP PO SCH (09:05)
[2020-03-01] MEDS: GLIPIZIDE 5 MG TAB PO SCH (09:05)
[2020-03-01] MEDS: PANTOPRAZOLE SOD 40 MG TABEC PO SCH (09:05)
[2020-03-01] MEDS: CARVEDILOL 3.125 MG TAB PO SCH (09:05)
[2020-03-01] MEDS: LOSARTAN POTASSIUM 100 MG TAB PO SCH (09:05)
[2020-03-01] MEDS: ASPIRIN 81 MG ENTERIC COATED PO SCH (09:05)
[2020-03-01] MEDS ORDERED: SODIUM CHLORIDE 0.9% 250ML 0 ML ONE (10:24)
[2020-03-01] MEDS: MELOXICAM 7.5 MG TAB PO PRN (10:26)
--- NOTE | 2020-03-01 11:11 | Diagnostic Imaging Report ---
MRI SPINE LUMBAR WO HISTORY: Low back pain for 2 days COMPARISON: Lumbar spine radiographs 02/28/2020; CT of the abdomen and pelvis 02/29/2020 and 07/16/2019 TECHNIQUE: Sagittal T1, sagittal T2, sagittal STIR, axial T2, coronal T2, and axial proton density weighted images of the lumbar spine were obtained without contrast. DISCUSSION: Number of non-rib bearing lumbar vertebral bodies: 5. Alignment: Normal lordosis. No scoliosis. Vertebrae: No evidence for fracture, or neoplasm. Small nodular T1 hyperintense lesions in the L1 and L3 vertebral bodies are benign hemangiomas. Conus medullaris: Normal, ends at T12-L1. Cauda equina: No masses or arachnoiditis. Posterior paraspinal muscles: Well preserved. No signal abnormalities. Soft tissues: No signal abnormalities. Mild to moderate multilevel disc degeneration is most prominent at L4-L5. There are nonspecific inflammatory endplate changes at L4-L5 and to a lesser extent at L3-L4. T12-L1: Patent canal and foramina. L1-L2: Disc bulge without significant canal or foraminal stenosis. L2-L3: Disc bulge without significant canal or foraminal stenosis. L3-L4: Mild canal stenosis due to asymmetric disc bulge towards the left and ligamentum flavum thickening. The left lateral recess is slightly effaced. The disc contacts the descending left L3 nerve root. Minimal left foraminal stenosis due to disc bulge and facet arthrosis. No significant right foraminal stenosis. L4-L5: Moderate canal stenosis due to disc bulge and ligamentum flavum thickening. Both lateral recesses are effaced. The disc contacts both descending L5 nerve roots. Mild bilateral foraminal stenoses due to disc bulge and facet arthrosis. Small left facet effusion with small posterior paraspinal synovial cyst. L5-S1: Moderate right and mild left foraminal stenosis due to asymmetric disc bulge towards the right and facet arthrosis. The disc contacts the exiting right L5 nerve root. No significant canal stenosis. IMPRESSION: 1. No evidence for acute fracture. 2. Mild to moderate multilevel disc degeneration, most prominent at L4-L5. Nonspecific inflammatory endplate changes at L4-L5 and to a lesser extent at L3-L4. 3. Moderate L4-L5 and mild L3-L4 degenerative canal stenoses. 4. Multilevel bilateral degenerative foraminal stenoses - moderate on the right at L5-S1. Disc bulge at L5-S1 contact the exiting right L5 nerve root. Signed by: Dr. Hilario Camacho M.D. on 03/01/2020 11:08 AM
[2020-03-01 12:00] VITALS: BP 154/84
[2020-03-01] MEDS ORDERED: MEROPENEM 500MG/ NS 50ML 50 ML IV SCH (12:00)
[2020-03-01] MEDS ORDERED: CIPRO500 MG PO (13:51)
--- NOTE | 2020-03-01 15:16 | NUR ---
Patient discharged home, prescription given, denies any pain or SOB, No distress noted, IV removed with tip intact, no ss of infiltration, transported via wc to front lobby, family here to pick her
--- NOTE | 2020-03-01 20:44 | Discharge Summary ---
PRIMARY CARE PHYSICIAN: Dr. Nargis Isaacs at [facility] DISCHARGE DIAGNOSES: 1. Chest pain, ruled out acute coronary syndrome. 2. Urinary tract infection with Escherichia coli ESBL. 3. Degenerative lower back pain. 4. Diabetes with hyperglycemia. 5. Hypertension. 6. History of anxiety and depression. 7. High cholesterol. 8. History of gastroesophageal reflux disease. 9. History of arthritis. CONSULTANTS: None. PROCEDURES: None. HISTORY: Per HPI. HOSPITAL COURSE: This is a 64-year-old female, who presented to the ER with complaint of chest pain and lower back pain. Her troponins x4 were negative, chest x-ray unremarkable, chest pain resolved post Toradol x1 in the ER, likely the pain is musculoskeletal. She continued to complain of the lower back pain. X-ray was negative for acute changes, so an MRI of the lumbar spine was ordered, which showed degenerative changes with moderate L4-L5 and mild L3-L4 degenerative canal stenosis with multiple bilateral degenerative foraminal stenosis and disk bulge at L5-S1 contact the exiting right L5 nerve root. She, however, has improved back pain, rating it 3 to 4 out of 10. She was also noted to have UTI. Urine culture was positive for Escherichia coli with ESBL, which is sensitive to Cipro, so we will discharge home today on Cipro 500 b.i.d. as she has no symptoms of the UTI. She is advised to follow up with Dr. Reis next week and the certified health education specialist if her back pain continues to worsen or reoccur. PHYSICAL EXAMINATION: VITAL SIGNS: Temperature 98.9, pulse is 95, respirations 20, blood pressure 154/84, and pulse ox is 99% on room air. GENERAL: In no acute distress. LUNGS: Clear. CARDIOVASCULAR: Regular rate and rhythm. GI: Soft and nontender. NEUROLOGIC: Alert, awake, and oriented. MUSCULOSKELETAL: Moves all extremities. PSYCH: Calm. CONDITION AT DISCHARGE: Improved and stable. DC MEDICATIONS: Please see medication reconciliation list. FOLLOWUP: Follow up with Dr. Isaacs next week. Total time of discharge is 34 minutes. Dictated by MIKO Washington Keerthi Cosme MD MY/MODL /[id number] Pt seen and examined. Agree with the findings and plan as documented by MIKO Abarca. SHARIF
== END 2020-03-01 15:09 | disposition home or self-care (01) ==
LOC: ER 07:45 → ERHOLD 08:45 → MED/SURG 14:27 → MED/SURG3 03-01 08:28 → OBSVTOIN 03-01 10:29 → INTOOBSV 03-01 10:29
PROVIDERS: ADMIT Internal Medicine; ATTEND Internal Medicine
DX: R07.89 Other chest pain (principal); N39.0 Urinary tract infection, site not specified; M48.061 Spinal stenosis, lumbar region without neurogenic claudication; I10 Essential (primary) hypertension; B96.20 Unspecified Escherichia coli [E. coli] as the cause of diseases classified elsewhere; Z16.12 Extended spectrum beta lactamase (ESBL) resistance; K21.9 Gastro-esophageal reflux disease without esophagitis; M19.90 Unspecified osteoarthritis, unspecified site; E11.65 Type 2 diabetes mellitus with hyperglycemia; Z88.8 Allergy status to other drugs, medicaments and biological substances; F41.9 Anxiety disorder, unspecified; F32.9 Major depressive disorder, single episode, unspecified; E78.5 Hyperlipidemia, unspecified; Z87.440 Personal history of urinary (tract) infections; Z85.42 Personal history of malignant neoplasm of other parts of uterus; Z90.49 Acquired absence of other specified parts of digestive tract; Z90.710 Acquired absence of both cervix and uterus; Z83.3 Family history of diabetes mellitus; Z79.4 Long term (current) use of insulin
CPT/HCPCS: 36415 ×2; 71045; 72100; 72148; 74176; 80053; 80061; 81001; 82550 ×2; 82553 ×2; 82948 ×3; 83880; 84484 ×2; 85025; 87086; 87186; 87635; 93005; 99284; G0378 ×3; J0696; J1815 ×3; J1817; J1885; J2185; J7050; S0164 ×2

== ENCOUNTER 2020-06-06 11:38 | Observation (INO) | payer MEDICARE ==
[~2020-06-06] VITALS: Ht 162.6 cm; Wt 93.9 kg
[~2020-06-06 11:38] MED LIST changes: +BUSPIRONE HCL5 MG PO; +CIPRO500 MG PO; +DESLORATADINE5 MG PO; +FAMOTIDINE20 MG PO; +LANTUS 3ML100 UNITS/ SC; +MELOXICAM7.5 MG PO
[2020-06-06] MEDS ORDERED: ASPIRIN 81 MG CHEW TAB PO ONE (12:00)
--- NOTE | 2020-06-06 12:04 | Emergency Department Note ---
History of Present Illnes History of Present Illness Chief Complaint: Chest Pain History of Present Illness This is a 65 year old female arrives to the ED with complaints of chest pain cough fever for the past one week. Chief Complaint Comment PATIENT IN FROM HOME WITH COMPLAINTS OF CHEST PAIN, COUGH, NAUSEA, AND HEADACHE X 1 WEEK; STATES WAS SEEN BY HER DOCTOR LAST WEEK AND GIVEN MEDICATIONS BUT SHE IS FEELING WORSE. PATIENT DENIES FEVER. PATIENT RATES PAIN 7/10. PATIENT ALERT AND ORIENTED, RESP EVEN AND NONLABORED, AMBULATORY WITHOUT ASSISTANCE Historian: Patient Arrival Mode: Car Onset (how long ago): week(s) Radiation: Reports non-radiation Severity: mild Duration (how long): week(s) Timing of current episode: intermittent Progression: waxing and waning Associated symptoms: Reports fever/chills Past Medical/Family History Physician Review I have reviewed the patient's past medical and family history. Any updates have been documented here. Past Medical History Recent Fever: No Clinical Suspicion of Infectio: Yes New/Unexplained Change in Ment: No Past Medical History: Hypertension, Diabetes, Cancer, Hyperlipedemia, Chronic Back Pain Other Medical History: HX OF UTERINE CANCER, GASTRITIS, GALL STONES, Past Surgical History: Hysterectomy Other Surgery: CATARACTS TUBAL Laproscopic surgery Social History Physically hurt or threatened: No Other Last Tetanus: UTD Review of Systems Review of Systems Constitutional: Reports as per HPI, Reports fever EENTM: Reports no symptoms Cardiovascular: Reports as per HPI, Reports chest pain Respiratory: Reports as per HPI, Reports cough Gastrointestinal: Reports no symptoms Genitourinary: Reports no symptoms Musculoskeletal: Reports no symptoms Integumentary: Reports no symptoms Neurological: Reports no symptoms Psychological: Reports no symptoms Endocrine: Reports no symptoms Hematological/Lymphatic: Reports no symptoms Physical Exam Related Data Allergies: Coded Allergies: promethazine (Verified Allergy, Unknown, ANXIETY, 06/06/20) tramadol (Verified Adverse Reaction, Mild, NAUSEA, 06/06/20) metoclopramide (Verified Adverse Reaction, Unknown, ANXIETY, 06/06/20) CLARIFIED W/ DR. JACKSON THAT PATIENT'S REACTION WAS ANXIETY. MD OKED TO CHANGE TO ADR. Triage Vital Signs Vital Signs Date Time Temp Pulse Resp B/P (MAP) Pulse Ox O2 Delivery O2 Flow Rate FiO2 06/06/20 11:40 98.0 106 18 162/93 100 Room Air Vital signs reviewed: Yes Physical Exam CONSTITUTIONAL Constitutional: Present well-developed, Present well-nourished, Present obese HENT HENT: Present normocephalic, Present atraumatic, Present oropharynx clear/moist, Present nose normal HENT L/R: Present left ext ear normal, Present right ext ear normal EYES Eyes: Reports PERRL, Reports conjunctivae normal NECK Neck: Present ROM normal PULMONARY Pulmonary: Present effort normal, Present breath sounds normal CARDIOVASCULAR Cardiovascular: Present regular rhythm, Present heart sounds normal, Present capillary refill normal, Present normal rate GASTROINTESTINAL Abdominal: Present soft, Present nontender, Present bowel sounds normal GENITOURINARY Genitourinary: Present exam deferred SKIN Skin: Present warm, Present dry MUSCULOSKELETAL Musculoskeletal: Present ROM normal NEUROLOGICAL Neurological: Present alert, Present oriented x 3, Present no gross motor or sensory deficits PSYCHOLOGICAL Psychological: Present mood/affect normal, Present judgement normal Results Laboratory Lab results reviewed: Yes Laboratory comments Laboratory Tests Test 06/06/20 11:52 White Blood Count 9.02 x10e3/uL (4.8-10.8) Red Blood Count 5.03 x10e6/uL (3.6-5.1) Hemoglobin 14.5 g/dL (12.0-16.0) Hematocrit 44.2 % (34.2-44.1) Mean Corpuscular Volume 87.9 fL (81-99) Mean Corpuscular Hemoglobin 28.8 pg (28-32) Mean Corpuscular Hemoglobin Concent 32.8 g/dL (31-35) Red Cell Distribution Width 14.0 % (11.7-14.4) Platelet Count 304 x10e3/uL (140-360) Neutrophils (%) (Auto) 65.2 % (38.7-80.0) Lymphocytes (%) (Auto) 28.2 % (18.0-39.1) Monocytes (%) (Auto) 4.0 % (4.4-11.3) Eosinophils (%) (Auto) 1.6 % (0.0-6.0) Basophils (%) (Auto) 0.7 % (0.0-1.0) Neutrophils # (Auto) 5.9 (2.1-6.9) Lymphocytes # (Auto) 2.5 (1.0-3.2) Monocytes # (Auto) 0.4 (0.2-0.8) Eosinophils # (Auto) 0.1 (0.0-0.4) Basophils # (Auto) 0.1 (0.0-0.1) Absolute Immature Granulocyte (auto 0.03 x10e3/uL (0-0.1) Sodium Level 138 mmol/L (136-145) Potassium Level 4.5 mmol/L (3.5-5.1) Chloride Level 102 mmol/L (98-107) Carbon Dioxide Level 25 mmol/L (22-29) Anion Gap 15.5 mmol/L (8-16) Blood Urea Nitrogen 14 mg/dL (7-26) Creatinine 0.84 mg/dL (0.57-1.11) Estimat Glomerular Filtration Rate > 60 ML/MIN (60-) BUN/Creatinine Ratio 17 (6-25) Glucose Level 293 mg/dL (74-118) Calcium Level 9.2 mg/dL (8.4-10.2) Total Bilirubin 0.3 mg/dL (0.2-1.2) Aspartate Amino Transf (AST/SGOT) 13 IU/L (5-34) Alanine Aminotransferase (ALT/SGPT) 18 IU/L (0-55) Alkaline Phosphatase 129 IU/L (40-150) Creatine Kinase 36 IU/L (29-168) Creatine Kinase MB 0.40 ng/mL (0-5.0) Troponin I < 0.001 ng/mL (0-0.300) Total Protein 7.2 g/dL (6.5-8.1) Albumin 3.6 g/dL (3.5-5.0) Globulin 3.6 g/dL (2.3-3.5) Albumin/Globulin Ratio 1.0 (0.8-2.0) Procedures 12 Lead ECG Interpretation ECG Interpretation : ECG: ECG 1 Account Development Associate: Interpreted by ED physician Rhythm: sinus tachycardia QRS axis: left ST segments normal: Yes Clinical Impression: normal ECG Assessment & Plan Medical Decision Making MDM 65-year-old female arrived to the ED with atypical complaints of chest pain. Patient seen at PCPs office and states pain is intermittent worsening exertion. Patient with a high heart score and require hospital admission for serial cardiac markers and EKG. Cardiology consult to be done at the discretion of primary admitting team. Assessment & Plan Final Impression: (1) Chest pain Depart Disposition: HOME, SELF-CARE Last Vital Signs Date Time Temp Pulse Resp B/P (MAP) Pulse Ox O2 Delivery O2 Flow Rate FiO2 06/06/20 11:40 98.0 106 18 162/93 100 Room Air Home Meds Active Scripts Ciprofloxacin Hcl (CIPRO) 500 Mg Tablet, 500 MG PO Q12H for 7 Days, #14 TAB Prov:LAUREN GARCIA DRUM SANDER OFFBEARER 03/01/20 Reported Medications Insulin Glargine (LANTUS 3ML PEN) 100 Units/1 Ml Inj, 20 UNITS SC HS 02/29/20 Insulin Glargine (LANTUS 3ML PEN) 100 Units/1 Ml Inj, 20 UNITS SC DAILY 02/29/20 Famotidine (FAMOTIDINE) 20 Mg Tab, 20 MG PO BID, #30 TAB 02/29/20 Buspirone Hcl (BUSPIRONE HCL) 5 Mg Tablet, 10 MG PO BID, #60 TAB 02/29/20 Meloxicam (MELOXICAM) 7.5 Mg Tablet, 15 MG PO DAILY PRN for pain, #30 TAB 02/29/20 Desloratadine (DESLORATADINE) 5 Mg Tablet, 1 TAB PO DAILY 02/29/20 Pravastatin Sodium (PRAVASTATIN SODIUM) 40 Mg Tablet, 40 MG PO HS 07/16/19 Duloxetine Hcl (CYMBALTA) 20 Mg Capcr, 40 MG PO HS, #30 CAP 04/03/19 Pantoprazole Sodium* (PROTONIX) 40 Mg Tablet.dr, 40 MG PO DAILY, TAB 01/19/17 Losartan Potassium (LOSARTAN POTASSIUM) 100 Mg Tablet, 100 MG PO DAILY, TAB 01/19/17 Glipizide (GLIPIZIDE) 5 Mg Tablet, 10 MG PO BID, TAB 01/19/17 Gabapentin (GABAPENTIN) 300 Mg Capsule, 600 MG PO TID, #60 CAP 06/29/15 Medications in the ED Aspirin 81 mg PRN ONCE PO ; Start 06/06/20 at 12:00; Stop 06/06/20 at 12:01 PANFILO PEARSON DO Jun 06, 2020 12:03
[2020-06-06 12:07] LABS: BASOPHILS # (AUTO) 0.1 (0.0-0.1); BASOPHILS % 0.7 % (0.0-1.0); EOSINOPHILS # (AUTO) 0.1 (0.0-0.4); EOSINOPHILS % 1.6 % (0.0-6.0); HEMATOCRIT 44.2 % (34.2-44.1); HEMOGLOBIN 14.5 g/dL (12.0-16.0); LYMPHOCYTES # (AUTO) 2.5 (1.0-3.2); LYMPHOCYTES % 28.2 % (18.0-39.1); MEAN CORPUSCULAR HEMOGLOBIN 28.8 pg (28-32); MEAN CORPUSCULAR HGB CONC 32.8 g/dL (31-35); MEAN CORPUSCULAR VOLUME 87.9 fL (81-99); MONOCYTES # (AUTO) 0.4 (0.2-0.8); NEUTROPHILS # (AUTO) 5.9 (2.1-6.9); NEUTROPHILS % 65.2 % (38.7-80.0); PLATELET COUNT 304 x10e3/uL (140-360); RED BLOOD COUNT 5.03 x10e6/uL (3.6-5.1)
[2020-06-06 12:25] LABS: ALANINE AMINOTRANSFERASE 18 IU/L (0-55); ALBUMIN 3.6 g/dL (3.5-5.0); ALKALINE PHOSPHATASE 129 IU/L (40-150); ANION GAP 15.5 mmol/L (8-16); BLOOD UREA NITROGEN 14 mg/dL (7-26); BUN/CREATININE RATIO 17 (6-25); CALCIUM 9.2 mg/dL (8.4-10.2); CARBON DIOXIDE 25 mmol/L (22-29); CHLORIDE 102 mmol/L (98-107); CREATINE KINASE 36 IU/L (29-168); CREATININE, SERUM 0.84 mg/dL (0.57-1.11); EST GLOMERULAR FILTRATION RATE > 60 ML/MIN (60-); GLUCOSE 293 mg/dL (74-118); POTASSIUM 4.5 mmol/L (3.5-5.1); SODIUM 138 mmol/L (136-145)
--- NOTE | 2020-06-06 14:01 | Diagnostic Imaging Report ---
EXAM: CHEST SINGLE (PORTABLE) DATE: 06/06/2020 12:30 PM INDICATION: Chest pain COMPARISON: 02/28/2020 FINDINGS: The trachea is midline. There is minimal left basilar opacity suggestive of atelectasis/scarring. The lungs are symmetrically expanded without evidence for large focal consolidation, pneumothorax, or significant pleural effusion. The cardiomediastinal silhouette and pulmonary vasculature are within normal limits. No acute osseous abnormality is identified. The surrounding soft tissues are unremarkable. IMPRESSION: No acute cardiopulmonary process identified. Signed by: Dr. Tino Wong MD on 06/06/2020 1:45 PM
--- NOTE | 2020-06-06 16:08 | Diagnostic Imaging Report ---
CT of the abdomen and pelvis, with contrast. History: Abdominal pain. Comparison: CT abdomen/pelvis without contrast from 02/29/2020. Technique: Multidetector CT scanning of the abdomen and pelvis was performed from the level of the lung bases to the inferior pubic rami after intravenous administration of contrast. Coronal and sagittal multiplanar reformations were obtained. RADIATION DOSE: Total DLP: 732.67 mGy*cm Dose modulation, iterative reconstruction, and/or weight based adjustment of the mA/kV was utilized to reduce the radiation dose to as low as reasonably achievable. FINDINGS: There is mild bibasilar atelectasis is present. The imaged portion of the heart demonstrates no significant abnormalities. The liver is normal in size but appears diffusely decreased in attenuation suggestive of fatty infiltration. No focal hepatic abdomen is identified.. The gallbladder is surgically absent. There is no intrahepatic biliary ductal dilatation. There is stable mild prominence of the common bile duct, likely reflecting reservoir phenomenon status post cholecystectomy. There is a small hiatal hernia present. The stomach is otherwise unremarkable. The spleen, pancreas, and bilateral adrenal glands are unremarkable. The kidneys are normal in size and location. There is no evidence for nephrolithiasis or hydronephrosis. No ureteral stone or dilatation is appreciated. The urinary bladder demonstrates no significant abnormalities. The uterus is surgically absent. No abnormal adnexal masses are identified. The abdominal aorta is normal in course and caliber with mild left sclerotic calcification. The IVC is unremarkable. The portal venous system, SMV, and splenic vein are patent. Please note evaluation of the bowel is limited without the use of enteric contrast material. The visualized loops of small and large bowel demonstrate no evidence of obstruction or inflammation. The appendix is visualized and appears unremarkable. There is no ascites or intraperitoneal free air. No abnormally enlarged lymph nodes are identified within the abdomen or pelvis. There is a small fat-containing umbilical hernia. The osseous structures demonstrate stable degenerative changes without evidence for acute fracture or destructive process. The extraperitoneal soft tissues are unremarkable. IMPRESSION: No acute abdominopelvic process or significant interval change identified from 02/29/2020. CT findings suggestive of hepatic steatosis. Status post cholecystectomy and hysterectomy. Small hiatal hernia. Signed by: Dr. Tino Wong MD on 06/06/2020 4:04 PM
--- OUTSIDE RECORDS SUMMARY | 2020-06-06 16:42 | XMS REPORT | Continuity of Care Document ---
Author Author [facility] t Organization [facility] Address [address] [place] [address] Phone Unavailable Care Team Providers Care Cafeteria Cashier Name Role Phone BUSTER YOON PCP Brianne PEARSON Attphys Unavailable NAY, A YICHING Attphys Unavailable SWEET, A LAIRD Attphys Unavailable ANGELO, T MISAEL Attphys Unavailable MANEEVESE, V KE Attphys Unavailable TEE, A YICHING Admphys Unavailable Payers Payer Name Policy Type Policy Number Effective Date Expiration Date Brianne [employer] Medicare Advantage NA 2017 00:00 :00 [facility] Blue Medicare Advantage [id number] 2016 00:00:00 [facility] Problems Condition Name Condition Details Condition Category Status Onset Date Resolution Date Last Treatment Date Treating Clinician Comments Source Chest pain Problem Active [facility] Allergies, Adverse Reactions, Alerts Allergy Name Allergy Type Status Severity Reaction(s) Onset Date Inacti ve Date Treating Clinician Comments Source Tramadol Propensity to adverse reactions Active Mild NAUSEA 2019-04-03 00:00:00 [facility] Promethazine Allergy to substance Active ANXIETY 2019-04-03 00:00: 00 [facility] Metoclopramide Propensity to adverse reactions Active ANXIETY 2019-04-03 00:00:00 [facility] Social History Social Habit Start Date Stop Date Quantity Comments Source Sex Ass[birth year] At 1955 00:00:00 1955 00:00:00 Female [facility] Medications Ordered Medication Name Filled Medication Name Start Date Stop Da te Current Medication? Ordering Clinician Indication Dosage Frequency Signature (SIG) Comments Components Source Ciprofloxacin Hcl (Cipro) 500 Mg TABLET Ciprofloxacin Hcl (C ipro) 500 Mg TABLET 2020-03-01 13:51:00 Yes 500 Every 12 Hours [facility] Cefuroxime Axetil (Cefuroxime) 250 Mg TABLET Cefuroxim e Axetil (Cefuroxime) 250 Mg TABLET 2017-05-21 12:16:00 2019-04-03 00:00:00 No 250 Every 12 Hours [facility] Buspirone Hcl Buspirone Hcl Yes 10 Twice A Day [facility] Desloratadine Desloratadine Yes 1 Daily [facility] Duloxetine Hcl (Cymbalta) 20 Mg CAPCR Duloxetine Hcl (Cymbalta) 20 Mg CAPCR Yes 40 Bedtime [facility] Famotidine Famotidine Yes 20 Twice A Day [facility] Gabapentin Gabapentin Yes 600 Three Times A Day [facility] Glipizide Glipizide Yes 10 Twice A Day [facility] Insulin Glargine (Lantus 3ML Pen) 100 Units/1 Ml INJ I nsulin Glargine (Lantus 3ML Pen) 100 Units/1 Ml INJ Yes 20 Daily [facility] Insulin Glargine (Lantus 3ML Pen) 100 Units/1 Ml INJ I nsulin Glargine (Lantus 3ML Pen) 100 Units/1 Ml INJ Yes 20 Bedtime [facility] Losartan Potassium Losartan Potassium Yes 100 Da milad [facility] Meloxicam Meloxicam Yes 15 Daily as needed for Pain [facility] Pantoprazole Sodium (Protonix) 40 Mg TABLET. Pantopr azole Sodium (Protonix) 40 Mg TABLET. Yes 40 Daily [facility] Pravastatin Sodium Pravastatin Sodium Yes 40 Be dtime [facility] Insulin Glargine (Lantus 3ML Pen) 100 Units/1 Ml INJ I nsulin Glargine (Lantus 3ML Pen) 100 Units/1 Ml INJ 2020-02-29 00:00:00 No 30 Bedtime [facility] Insuln Asp Prt/Insulin Aspart (Novolog M ix 70-30 Flexpen Syrn) 100 Unit/1 Ml INSULN.PEN Insuln Asp Prt/Insulin Aspart (Novolog M ix 70-30 Flexpen Syrn) 100 Unit/1 Ml INSULN.PEN 2020-02-29 00:00:00 No 20 Twi ce A Day [facility] Ondansetron (Ondansetron Odt) 8 Mg TAB.RAPDIS Ondanset wilma (Ondansetron Odt) 8 Mg TAB.RAPDIS 2020-02-29 00:00:00 No 4 E very 6 Hours as needed for Nausea [facility] Atorvastatin Calcium Atorvastatin Calcium 2019-07-16 00:00:00 No 80 Bedtime [facility] Insulin Glargine (Lantus 3ML Pen) 100 Units/1 Ml INJ I nsulin Glargine (Lantus 3ML Pen) 100 Units/1 Ml INJ 2019-07-16 00:00:00 No 40 Before Breakfast [facility] Estradiol Estradiol 2019-04-03 00:00:00 No 1 Daily [facility] Sertraline Hcl (Zoloft) 50 Mg TABLET Sertraline Hcl (Zoloft) 50 Mg TABLET 2019-04-03 00:00:00 No 50 Daily [facility] Fluconazole (Diflucan) 100 Mg TABLET Fluconazole (Diflucan) 100 Mg TABLET 2017-05-21 00:00:00 No 1 Daily [facility] Metformin Hcl Metformin Hcl 2017-05-21 00:00:00 No 850 Twice A Day [facility] Benazepril/Hydrochlorothiazide (Benazepril-Hctz 20-25 Mg Tab) 1 Each TABLET Benazepril/Hydrochlorothiazide (Benazepril-Hctz 20-25 Mg Tab) 1 Each TABLET 2017-01-19 00:00:00 No Daily [facility] Clonazepam (Klonopin) 0.5 Mg TABLET Clonazepam (Klonopin) 0.5 Mg TABLET 2017-01-19 00:00:00 No .5 Twice A Day as neede d for Anxiety [facility] Omeprazole Omeprazole 2017-01-19 00:00:00 No 40 Twi ce A Day [facility] Venlafaxine Hcl Venlafaxine Hcl 2017-01-19 00:00:00 No 37.5 Twice A Day [facility] Vital Signs Vital Name Observation Time Observation Value Comments Source Body Temperature 2020-03-01 12:00:00 98.9 [degF] [facility] BMI (Body Mass Index) 2020-02-28 15:08:00 35.4 kg/m2 [facility] Weight 2020-02-28 07:45:00 200 [lb_av] [facility] Procedures Procedure Date / Time Performed Performing Clinician [facility] e Magnetic resonance imaging of lumbar spine without contrast 2020-03-01 00:00:[address] [facility] [address] of abdomen and pelvis without contrast 2020-02-29 00:00:00 [facility] Computed tomography of abdomen and pelvis with contrast 2018 00:00:00 PANFILO PEARSON [facility] Plan of Care Planned Activity Planned Date Details Comments Source Instructions Urinary Tract Infection - Women [facility] Encounters Start Date/Time End Date/Time Encounter Type Admission Type Attendi [facility] Care Department Encounter ID Source 2020-02-28 08:45:00 2020-03-01 15:09:00 Discharged Inpatient (obs) 1 MAYANK TEE [facility] [id number] [facility] 2019-12-11 17:18:00 2019-12-11 17:59:00 Departed Emergency Room [facility] [id number] [facility] 2019-12-11 14:34:00 2019-12-11 15:49:00 Departed Emergency Room [facility] [id number] [facility] 2019-07-16 11:45:00 2019-07-16 15:50:00 Departed Emergency Room 1 PANFILO CASILLAS [facility] [id number] BETY Danielle [facility] 2019-04-03 10:36:00 2019-04-03 17:36:00 Departed Emergency Room 1 AURELIO GAMBLE [facility] [id number] [facility] 2019-01-17 13:03:00 2019-01-17 17:30:00 Departed Emergency Room 1 MISAEL STEPHENS [facility] [id number] [facility] 2018-12-18 14:53:00 2018-12-18 17:55:00 Departed Emergency Room 1 KE TURPIN [facility] [id number] [facility] Results Test Description Test Time Test Comments Results Result Comments Source CT ABDOMEN/PELVIS W 2020-06-06 15:57:00 [place] [address] Patient Name: LEIA MUELLER I MR #: [id number] : 1955 Age/Sex: 65/F Req #: [id number] Adm Physician: Ordered by: PANFILO PEARSON DO Report #: [id number] Location: ER Room/Bed: Procedure: [id number] CT/CT ABDOMEN/PELVIS W Exam Date: 06/06/20 Exam Time: 1517 REPORT STATUS: Signed CT of the abdomen and pelvis, with contrast. History: Abdominal pain. Comparison: CT abdomen/pelvis without contrast from 02/29/2020. Technique: Multidetector CT scanning of the abdomen and pelvis was performed from the level of the lung bases to the inferior pubic rami after intravenous administration of contrast. Coronal and sagittal multiplanar reformations were obtained. RADIATION DOSE: Total DLP: 732.67 mGy*cm Dose modulation, iterative reconstruction, and/or weight based adjustment of the mA/kV was utilized to reduce the radiation dose to as low as reasonably achievable. FINDINGS: There is mild bibasilar atelectasis is present. The imaged portion of the heart demonstrates no significant abnormalities. The liver is normal in size but appears diffusely decreased in attenuation suggestive of fatty infiltration. No focal hepatic abdomen is identified.. The gallbladder is surgically absent. There is no intrahepatic biliary ductal dilatation. There is stable mild prominence of the common bile duct, likely reflecting reservoir phenomenon status post cholecystectomy. There is a small hiatal hernia present. The stomach is otherwise unremarkable. The spleen, pancreas, and bilateral adrenal glands are unremarkable. The kidneys are normal in size and location. There is no evidence for nephrolithiasis or hydronephrosis. No ureteral stone or dilatation is appreciated. The urinary bladder demonstrates no significant abnormalities. The uterus is surgically absent. No abnormal adnexal masses are identified. The abdominal aorta is normal in course and caliber with mild left sclerotic calcification. The IVC is unremarkable. The portal venous system, SMV, and splenic vein are patent. Please note evaluation of the bowel is limited without the use of enteric contrast material. The visualized loops of small and large bowel demonstrate no evidence of obstruction or inflammation. The appendix is visualized and appears unremarkable. There is no ascites or intraperitoneal free air. No abnormally enlarged lymph nodes are identified within the abdomen or pelvis. There is a small fat-containing umbilical hernia. The osseous structures demonstrate stable degenerative changes without evidence for acute fracture or destructive process. The extraperitoneal soft tissues are unremarkable. IMPRESSION: No acute abdominopelvic process or significant interval change identified from 02/29/2020. CT findings suggestive of hepatic steatosis. Status post cholecystectomy and hysterectomy. Small hiatal hernia. Signed by: Dr. Tino Wong MD on 06/06/2020 4:04 PM Dictated By: TINO WONG MD [id number] Transcribed By: CEE on 06/06/20 8232 COPY TO: PANFILO PEARSON, CHEST SINGLE (PORTABLE) 2020-06-06 13:44:00 [facility] [address] [place] [address] Patient Name: LEIA MUELLER I MR #: [id number] : 1955 Age/Sex: 65/F Req #: [id number] Adm Physician: Ordered by: PANFILO PEARSON DO Report #: [id number] Location: ER Room/Bed: Procedure: [id number] DX/CHEST SINGLE (PORTABLE) Exam Date: 06/06/20 Exam Time: 1230 REPORT STATUS: Signed EXAM: CHEST SINGLE (PORTABLE) DATE: 06/06/2020 12:30 PM INDICATION: Chest pain COMPARISON: 02/28/2020 FINDINGS: The trachea is midline. There is minimal left basilar opacity suggestive of atelectasis/scarring. The lungs are symmetrically expanded without evidence for large focal consolidation, pneumothorax, or significant pleural effusion. The cardiomediastinal silhouette and pulmonary vasculature are within normal limits. No acute osseous abnormality is identified. The surrounding soft tissues are unremarkable. IMPRESSION: No acute cardiopulmonary process identified. Signed by: Dr. Tino Wong MD on 06/06/2020 1:45 PM Dictated By: TINO WONG MD 1345 Transcribed By: CEE on 06/06/20 1345 COPY TO: PANFILO PEARSON DO MRI SPINE LUMBAR WO 2020-03-01 10:55:00 [place] [id number] [place] [id number] Patient Name: LEIA MUELLER I MR #: [id number] : 1955 Age/Sex: 64/F Req #: [id number] [facility] Physician: MAYANK TEE MD Ordered by: MAYANK TEE MD Report #: [id number] Location: MED/SURG3 Room/Bed: [facility] Procedure: [id number] MRI/MRI SPINE LUMBAR WO Exam Date: Exam Time: REPORT STATUS: Signed MRI SPINE LUMBAR WO HISTORY: Low back pain for 2 days COMPARISON: Lumbar spine radiographs 02/28/2020; CT of the abdomen and pelvis 02/29/2020 and 07/16/2019 TECHNIQUE: Sagittal T1, sagittal T2, sagittal STIR, axial T2, coronal T2, and axial proton density weighted images of the lumbar spine were obtained without contrast. DISCUSSION: Number of non-rib bearing lumbar vertebral bodies: 5. Alignment: Normal lordosis. No scoliosis. Vertebrae: No evidence for fracture, or neoplasm. Small nodular T1 hyperintense lesions in the L1 and L3 vertebral bodies are benign hemangiomas. Conus medullaris: Normal, ends at T12-L1. Cauda equina: No masses or arachnoiditis. Posterior paraspinal muscles: Well preserved. No signal abnormalities. Soft tissues: No signal abnormalities. Mild to moderate multilevel disc degeneration is most promin ent at L4-L5. There are nonspecific inflammatory endplate changes at L4-L5 and to a lesser extent at L3-L4. T12-L1: Patent canal and foramina. L1- L2: Disc bulge without significant canal or foraminal stenosis. L2-L3: Disc bulge without significant canal or foraminal stenosis. L3-L4: Mild canal stenosis due to asymmetric disc bulge towards the left and ligamentum flavum thickening. The left lateral recess is slightly effaced. The disc contacts the descending left L3 nerve root. Minimal left foraminal stenosis due to disc bulge and facet arthrosis. No significant right foraminal stenosis. L4- L5: Moderate canal stenosis due to disc bulge and ligamentum flavum thickening. Both lateral recesses are effaced. The disc contacts both descending L5 nerve roots. Mild bilateral foraminal stenoses due to disc bulge and facet arthrosis. Small left facet effusion with small posterior paraspinal synovial cyst. L5-S1: Moderate right and mild left foraminal stenosis due to asymmetric disc bulge towards the right and facet arthrosis. The disc contacts the exiting right L5 nerve root. No significant canal stenosis. IMPRESSION: 1. No evidence for acute fracture. 2. Mild to moderate multilevel disc degeneration, most prominent at L4-L5. Nonspecific inflammatory endplate changes at L4-L5 and to a lesser extent at L3-L4. 3. Moderate L4-L5 and mild L3-L4 degenerative canal stenoses. 4. Multilevel bilateral degenerative foraminal stenoses - moderate on the right at L5-S1. Disc bulge at L5-S1 contact the exiting right L5 nerve root. Signed by: Dr. Hilario Camacho M.D. on 03/01/2020 11:08 AM Dictated By: HILARIO CAMACHO MD 07 Transcribed By: CEE on 03/01/201107 COPY TO: MAYANK TEE MD Capillary blood glucose measurement by glucometer (mas s/volume) 2020-03-01 07:03:00 Test Item Bedside Glucose (test code = 43866-0) 233 70-120 Meter ID: [id number] [facility] 2020-[facility]29 16:19:00 [place] [address] Patient Name: LEIA MUELLER I MR #: [id number] : 1955 Age/Sex: 64/F Req #: [id number] Adm Physician: MAYANK TEE MD Ordered by: LAUREN GARC[facility]ILITIES INSPECTOR Report #: [id number] Location: MED/SURG Room/Bed: [facility] Procedure: [id number] CT/CT ABDOMEN/P EROS WO Exam Date: 02/29/20 Exam Time: 1520 REPORT STATUS: Signed Exam: CT abdomen and pelvis Clinical history: Pyelonephritis Technique: Helical images of the abdomen and pelvis were obtained without contrast DOSE REDUCTION: The exams was performed according to the departmental dose-optimization progr which includes automated exposure control, adjustment of the mA and/or kV a ccording to patient size and/or use of iterative reconstruction technique. Findings: The lung bases are clear. There is no evidence of pleural effusion. The cardiac size is within normal limits. The liver, spleen, pancreas, ad renal glands, and kidneys are unremarkable. The gallbladder has been removed. The small and large bowels are normal in caliber without evidence of obst ruction. The appendix is normal in caliber. The bladder is moderately diste nded. The uterus and ovaries are not visualized. There is no evidence of ly mphadenopathy or free fluid. Aorta and IVC are normal in caliber. Degener ative changes are noted throughout the lumbar spine with loss in disc heights. Impression: 1. No CT evidence of pyelonephritis. However, IV contrast wa s not given, complete evaluation was not possible. 2. Status post hysterecto my. Signed by: Dr. Luis Almaraz MD on 02/29/2020 4:21 PM Dictated By: JEAN ALMARAZ MD 1621 Transcribed By: CEE on 02/29/20 1621 COPY TO: [facility] [facility] [employer]ACILITIES INSPECTOR LUMBAR 3 [id number] 09:10:00 [place] [address] Patient Name: LEIA MUELLER I MR #: [id number] : 1955 Age/Sex: 64/F Req #: [id number] Adm Physician: MAYANK TEE MD Ordered by: LAUREN GARC[facility] [employer] FACILITIES INSPECTOR Report #: [id number] Location: MED/SURG Room/Bed: 108-1 Procedure: [id number] DX/LUMBAR 3 VIE W Exam Date: 02/28/20 Exam Time: 1620 REPORT STATUS: Signed Exam: Lumbar spine 3 vie ws Clinical history: Low back pain Findings: There is no evidence of a cute fracture or malalignment. Degenerative disc disease is noted throughout t he lumbar spine most pronounced at L4-5 and L5-S1 levels with loss in disc hei ghts, marginal osteophytes, and endplate sclerosis. The patient is status post cholecystectomy. Retained feces are noted throughout the colon. Impressi on: 1. No radiographic evidence of acute osseous injury. Degenerative changes as noted. Signed by: Dr. Luis Almaraz MD on 02/29/2020 9:11 AM Dict ated By: JEAN ALMARAZ MD 0 COPY TO: GARIMA GARCIA NP Serum or plasma triglyceride measurement (mass/volume)2020-02-29 05:35:00* Test Item Value Reference Range Interpretation Comments Triglycerides Level (test code = 2571-8) 168 0-149 [facility] plasma cholesterol measurement (mass/volume)2020-02-29 05:35:00* Test Item Value Reference Range Interpretation Comments Cholesterol Level (test code = 2093-3) 111 0-199 Less than 200 mg/dL Low [id number] - 239 mg/dL Borderline Pqfq257 m g/dl and greater High Risk [facility] or plasma cholesterol in LDL measurement (mass/volume) 2020-02-29 05:35:00* Test Item Value Reference Range Interpretation Comments LDL Cholesterol (test code = 2089-1) 34 60-130 [facility] or plasma cholesterol in HDL measurement (mass/volume)2020-02-29 05:35:00* Test Item Value Reference Range Interpretation Comments HDL Cholesterol (test code = 2085-9) 43 40-60 [facility] or plasma total cholesterol/cholesterol in HDL mass [id number] 05:35:00* Test Item Value Reference Range Interpretation Comments Cholesterol/HDL Ratio (test code = 9830-1) 2.6 3.0-3.6 [facility] or plasma creatine kinase measurement (enzymatic activity/volume)2020-02-29 05:35:00* Test Item Value Reference Range Interpretation Comments Creatine Kinase (test code = 2157-6) 40 29-168 [facility] or plasma creatine kinase MB measurement (mass/volume)2020-02-29 05:35:00* Test Item Value Reference Range Interpretation Comments Creatine Kinase MB (test code = 79260-8) 0.40 0-5.0 [facility] by highly sensitive enzyme [id number] 05:35:00* Test Item Value Reference Range Interpretation Comments Troponin I (test code = 06003-1) < 0.001 0-0.300 [facility] procedure less than one hour [id number] 09:37:00* Test Item Value Reference Range Interpretation Comments Coronavirus (PCR) (test code = Coronavirus (PCR)) NOT DETECTED NOTD ETECTED SARS-COV-2 (COVID19), HIGHRISK, RT-PCRNegative results do not preclude SARS-CoV- 2 infection and should not be used as the sole basis for patient management deci sions. Negative results must be combined with clinical observations, patient his tory, and epidemiological information. Optimum specimen types and timing for pea k viral levels during infections caused by SARS-CoV-2 have not been determined. Collection of multiple specimens ot types of specimens may be necessary to detec t virus. Improper specimen collection and handling, sequence variability under p rimers/probes, or organism present below the limit of detection may lead to fals e negative results. Positive and negative predictive values of testing are highl y dependent on prevalance. False negative test results are more likely when prev alence is high.The expected result is negative (not detected).The SARS-CoV-2 laura t is intended for the qualitative detection of nucleic acid from SARS-CoV-2 in n asopharyngeal and oropharyngeal swab samples from patients who meet COVID-19 cli nical and or epidemiological criteria. For lower respiratory tract specimens, th e assay is submitted for authoriztion by FDA under an Emergency Use Authorizatio n (EUA). Testing methodology is real time RT-PCR. If received as separate collec tion devices, nasopharygeal and oropharyngeal specimens are combined for analysi s. Additional specimens may be split to a separate accession for analysi and rep orting as this test includes a single unit of service.Test results must be corre lated with clinical presentation and evaluated in the context of other laborator y and epidemiologic data. Test performance can be affected because the epidemiol ogy and clinical spectrum of infection caused by SARS-CoV-2 is not fully known. For example, the optimum types of specimens to collect and when during the cours e of infection these specimens are most likely to contain detectable viral RNA m ay not be known.This test has not been Food and Drug Administration (FDA) cleare d or approved and has been authorized by FDA under an Emergency Use Authorizatio n (EUA). The test is only authorized for the duration of the declaration that ci rcumstances exist justifying the authorization of emergency use of in vitro diag nostic tests for detection and/or diagnosis of SARS-CoV-2 under section 564(b) o f the Act, 21 U.S.C. section 360bbb-3(b)(1), unless the authorization is termina celia or revoked sooner. [facility] are certified under the C linical Laboratory Improvement Amendments of 1988 (CLIA), 42 U.S.C. section 263a , to perform high complexity tests.Testing performed by [facility] [address] [id number] Director: Eris Brown M.D.CLIA # [id number] [facility] SINGLE (PORTABLE)2020-02-28 09:34:00 [facility] [address] [place] [address] Patient Name: LEIA MUELLER I MR #: [id number] : 1955 Age/Sex: 64/F Req #: [id number] Adm Physician: MAYANK TEE MD Ordered by: PANFILO PEARSON DO Report #: [id number] Location: [facility] Room/Bed: [place] [address] Procedure: [id number] DX/CHEST SING LE (PORTABLE) Exam Date: 02/28/20 Exam Time: 0840 REPORT STATUS: Signed X-ray chest AP portable History: Chest pain Comparison: 04/03/2019 Findings: C entral airways unremarkable. Heart size borderline for this technique. Other m ediastinal silhouettes unremarkable. Chronic left basilar linear opacity likel y representing a scar. No pleural effusion. No pneumothorax. No other focal kalen ng disease. Skeleton and extrathoracic soft tissues show no significant acute abnormality. Impression: No acute cardiopulmonary disease on this exam. Signed by: Ananda Pacheco MD on 02/28/2020 9:36 AM Dictated By: ANANDA PACHECO MD 5 Trans cribed By: CEE on 02/28/20935 COPY TO: PANFILO PEARSON DO Blood leukocytes automated count (number/volume)2020-02-28 08:00:00* Test Item Value Reference Range Interpretation Comments White Blood Count (test code = 6690-2) 8.75 4.8-10.8 [facility] HospitalBlood erythrocytes automated count (number/volume)2020-02-28 08:00:00* Test Item Value Reference Range Interpretation Comments Red Blood Count (test code = 789-8) 4.60 3.6-5.1 [facility]Blood hemoglobin measurement (moles/volume)2020-02-28 08:00:00* Test Item Value Reference Range Interpretation Comments Hemoglobin (test code = 51778-1) 13.4 12.0-16.0 [facility] HospitalAutomated blood hematocrit (volume fraction)2020-02-28 08:00:00* Test Item Value Reference Range Interpretation Comments Hematocrit (test code = 4544-3) 40.6 34.2-44.1 [facility] HospitalAutomated erythrocyte mean corpuscular umpkrz3367-77-67 08:00:00* Test Item Value Reference Range Interpretation Comments Mean Corpuscular Volume (test code = 787-2) 88.3 81-99 [facility] HospitalAutomated erythrocyte mean corpuscular hemoglobin (mass per erythrocyte)2020-02-28 08:00:00* Test Item Value Reference Range Interpretation Comments Mean Corpuscular Hemoglobin (test code = 785-6) 29.1 28-32 [facility] HospitalAutomated erythrocyte mean corpuscular hemoglobin concentration measurement (mass/volume)2020-02-28 08:00:00* Test Item Value Reference Range Interpretation Comments Mean Corpuscular Hemoglobin Concent (test code = 786-4) 33.0 31-35 [facility] HospitalRDW LimQm-Bow9347-43-21 08:00:00* Test Item Value Reference Range Interpretation Comments Red Cell Distribution Width (test code = 03422-0) 13.2 11.7 -14.4 [facility] HospitalAutomated blood platelet count (count/volume)2020-02-28 08:00:00* Test Item Value Reference Range Interpretation Comments Platelet Count (test code = 777-3) 308 140-360 [facility] neutrophil count as percentage of total bexwsciyjz0160-58-82 08:00:00* Test Item Value Reference Range Interpretation Comments Neutrophils (%) (Auto) (test code = 86949-2) 64.9 38.7-80.0 [facility] HospitalAutomated blood lymphocyte count as percentage ot total uzgsdlvpbi4643-62-50 08:00:00* Test Item Value Reference Range Interpretation Comments Lymphocytes (%) (Auto) (test code = 736-9) 26.9 18.0-39.1 [facility] HospitalAutomated blood monocyte count as percentage of total tmexlpujdg8649-23-68 08:00:00* Test Item Value Reference Range Interpretation Comments Monocytes (%) (Auto) (test code = 5905-5) 4.6 4.4-11.3 [facility] HospitalAutomated blood eosinophil count as percentage of total gukjavezbv3471-70-36 08:00:00* Test Item Value Reference Range Interpretation Comments Eosinophils (%) (Auto) (test code = 713-8) 2.7 0.0-6.0 [facility] HospitalAutcommunity healthed blood basophil count as percentage of total gkbqbjreme1775-46-51 08:00:00* Test Item Value Reference Range Interpretation Comments Basophils (%) (Auto) (test code = 706-2) 0.6 0.0-1.0 [facility] HospitalFluoroscopic procedure less than one hour mrodgkmh7337-34-98 08:00:00* Test Item Value Reference Range Interpretation Comments IM GRANULOCYTES % (test code = IM GRANULOCYTES %) 0.3 0.0- 1.0 [facility] HospitalAutcommunity healthed blood neutrophil count 2020-02-28 08:00:00* Test Item Value Reference Range Interpretation Comments Neutrophils # (Auto) (test code = 751-8) 5.7 2.1-6.9 [facility] HospitalBlood lymphocytes count (number/volume) 2020-02-28 08:00:00* Test Item Value Reference Range Interpretation Comments Lymphocytes # (Auto) (test code = 22982-3) 2.4 1.0-3.2 [facility] HospitalBlood monocytes automated count (number/volume)2020-02-28 08:00:00* Test Item Value Reference Range Interpretation Comments Monocytes # (Auto) (test code = 742-7) 0.4 0.2-0.8 [facility] eosinophil count 2020-02-28 08:00:00* Test Item Value Reference Range Interpretation Comments Eosinophils # (Auto) (test code = 711-2) 0.2 0.0-0.4 [facility] HospitalAutomated blood basophil count (count/volume)2020-02-28 08:00:00* Test Item Value Reference Range Interpretation Comments Basophils # (Auto) (test code = 704-7) 0.1 0.0-0.1 [facility] HospitalFluoroscopic procedure less than one hour qfvtrylr8266-85-13 08:00:00* Test Item Value Reference Range Interpretation Comments Absolute Immature Granulocyte (auto (laura t code = Absolute Immature Granulocyte (auto) 0.03 0-0.1 [facility] HospitalUrine color wadrmaogzaoec6979-05-22 08:00:00* Test Item Value Reference Range Interpretation Comments Urine Color (test code = 5778-6) STRAW YELLOW [facility] HospitalUrine jwjkywk9224-47-71 08:00:00* Test Item Value Reference Range Interpretation Comments Urine Clarity (test code = 83353-4) CLEAR CLEAR [facility] gravity of Urine by Test strip 2020-02-28 08:00:00* Test Item Value Reference Range Interpretation Comments Urine Specific [place] (test code = 5811-5) 1.020 1.010-1.02 5 [facility] HospitalUrine pH measurement by automated test rfzjl6159-06-11 08:00:00* Test Item Value Reference Range Interpretation Comments Urine pH (test code = 13599-4) 7 5-7 [facility] HospitalUrine leukocyte esterase detection by kprrqkye1520-41-21 08:00:00* Test Item Value Reference Range Interpretation Comments Urine Leukocyte Esterase (test code = 5799-2) TRACE NEGATIVE [facility] HospitalUrine nitrite uwlnuvwjm7326-36-50 08:00:00* Test Item Value Reference Range Interpretation Comments Urine Nitrite (test code = 49499-1) NEGATIVE NEGATIVE [facility] HospitalUrine protein measurement by test strip (mass/volume)2020-02-28 08:00:00* Test Item Value Reference Range Interpretation Comments Urine Protein (test code = 5804-0) NEGATIVE NEGATIVE [facility] HospitalUrine glucose hksabncbn6022-10-30 08:00:00* Test Item Value Reference Range Interpretation Comments Urine Glucose (UA) (test code = 2349-9) 2+ NEGATIVE [facility] HospitalUrine ketones detection by automated test zyxyy1973-17-10 08:00:00* Test Item Value Reference Range Interpretation Comments Urine Ketones (test code = 94294-5) NEGATIVE NEGATIVE [facility] HospitalUrine urobilinogen measurement by test strip (mass/volume)2020-02-28 08:00:00* Test Item Value Reference Range Interpretation Comments Urine Urobilinogen (test code = 02279-8) 0.2 0.2-1 [facility] HospitalUrine total bilirubin measurement (mass/volume)2020-02-28 08:00:00* Test Item Value Reference Range Interpretation Comments Urine Bilirubin (test code = 1978-6) NEGATIVE NEGATIVE [facility] HospitalUrine erythrocytes cqfdfogec7585-88-73 08:00:00* Test Item Value Reference Range Interpretation Comments Urine Blood (test code = 81126-0) TRACE NEGATIVE [facility] HospitalAutomated urine sediment leukocyte count by microscopy (number/high power field)2020-02-28 08:00:00* Test Item Value Reference Range Interpretation Comments Urine WBC (test code = 5821-4) 11-20 0-5 [facility] HospitalErythrocytes detection in urine sediment by light xwmvjjhdoe6473-68-90 08:00:00* Test Item Value Reference Range Interpretation Comments Urine RBC (test code = 44456-0) 0-5 0-5 [facility] HospitalBacteria detection in urine sediment by light kxidyxcbgw2879-38-52 08:00:00* Test Item Value Reference Range Interpretation Comments Urine Bacteria (test code = 68275-2) MANY NONE [facility] HospitalEpithelial cells detection in urine sediment by light zdmangplce1012-69-81 08:00:00* Test Item Value Reference Range Interpretation Comments Urine Epithelial Cells (test code = 39739-7) FEW NONE [facility] Campuserum or plasma sodium measurement (moles/volume)2020-02-28 08:00:00* Test Item Value Reference Range Interpretation Comments Sodium Level (test code = 2951-2) 137 136-145 [facility] Campuserum or plasma potassium measurement (moles/volume)2020-02-28 08:00:00* Test Item Value Reference Range Interpretation Comments Potassium Level (test code = 2823-3) 3.7 3.5-5.1 [facility] Campuserum or plasma chloride measurement (moles/volume)2020-02-28 08:00:00* Test Item Value Reference Range Interpretation Comments Chloride Level (test code = 2075-0) 100 98-107 [facility] Campuserum or plasma carbon dioxide, total measurement (moles/volume)2020-02-28 08:00:00* Test Item Value Reference Range Interpretation Comments Carbon Dioxide Level (test code = 2028-9) 25 22-29 [facility] Campuserum or plasma anion hwp4190-09-85 08:00:00* Test Item Value Reference Range Interpretation Comments Anion Gap (test code = 57271-0) 15.7 8-16 [facility] Campuserum or plasma urea nitrogen measurement (mass/volume)2020-02-28 08:00:00* Test Item Value Reference Range Interpretation Comments Blood Urea Nitrogen (test code = 3094-0) 17 7-26 [facility] Campuserum or plasma creatinine measurement (mass/volume)2020-02-28 08:00:00* Test Item Value Reference Range Interpretation Comments Creatinine (test code = 2160-0) 0.89 0.57-1.11 [facility] Campuserum or plasma urea nitrogen/creatinine mass ejgch7773-38-40 08:00:00* Test Item Value Reference Range Interpretation Comments BUN/Creatinine Ratio (test code = 3097-3) 19 6-25 [facility] HospitalEstimated glomerular filtration rate (GFR) xkcnamjsecurb2173-68-55 08:00:00* Test Item Value Reference Range Interpretation Comments Estimat Glomerular Filtration Rate (test code = 338137499) > 60 >60 Ranges were taken from the National Kidney Disease Education Program and the [facility] Foundation literature.Reference ranges:60 or greater: Cbkwzj83-68 ( for 3 consecutive months): Chronic kidney disease 15 or less: Kidney failureHouston [facility]ow[facility] HospitalGlucose ufbqcfbogab6949-56-54 08:00:00* Test Item Value Reference Range Interpretation Comments Glucose Level (test code = IBI9216) 390 74-118 [facility] Campuserum or plasma calcium measurement (mass/volume)2020-02-28 08:00:00* Test Item Value Reference Range Interpretation Comments Calcium Level (test code = 79543-1) 9.0 8.4-10.2 [facility] Campuserum or plasma total bilirubin measurement (mass/volume)2020-02-28 08:00:00* Test Item Value Reference Range Interpretation Comments Total Bilirubin (test code = 1975-2) 0.3 0.2-1.2 [facility] HospitalFluoroscopic procedure less than one hour xoqwotle3799-51-90 08:00:00* Test Item Value Reference Range Interpretation Comments Aspartate Amino Transf (AST/SGOT) (test code = Aspartate Amino Transf (AST/SGOT)) 13 5-34 [facility] Campuserum or plasma alanine aminotransferase measurement (enzymatic activity/volume)2020-02-28 08:00:00* Test Item Value Reference Range Interpretation Comments Alanine Aminotransferase (ALT/SGPT) (test code = 1742-6) 17 0-55 [facility]userum or plasma protein measurement (mass/volume)2020-02-28 08:00:00* Test Item Value Reference Range Interpretation Comments Total Protein (test code = 2885-2) 7.1 6.5-8.1 [facility] Camp[facility]um or plasma albumin measurement (mass/volume)2020-02-28 08:00:00* Test Item Value Reference Range Interpretation Comments Albumin (test code = 1751-7) 3.3 3.5-5.0 [facility] HospitalPlasma globulin measurement (mass/volume) 2020-02-28 08:00:00* Test Item Value Reference Range Interpretation Comments Globulin (test code = 45554-8) 3.8 2.3-3.5 [facility] Campuserum or plasma albumin/globulin mass btdhl7832-56-52 08:00:00* Test Item Value Reference Range Interpretation Comments Albumin/Globulin Ratio (test code = 1759-0) 0.9 0.8-2.0 [facility]um or plasma alkaline phosphatase measurement (enzymatic activity/volume)2020-02-28 08:00:00* Test Item Value Reference Range Interpretation Comments Alkaline Phosphatase (test code = 6768-6) 130 40-150 [facility] HospitalBNP Vkr-yLku3588-83-21 08:00:00* Test Item Value Reference Range Interpretation Comments B-Type Natriuretic Peptide (test code = 98625-2) 12.1 0-100 [facility] HospitalBacterial urine urumfpf7902-29-03 08:00:00* Test Item Value Reference Range Interpretation Comments Urine Culture (test code = 630-4) ESCHERICHIA COLI-ESBL [facility] HospitalUrine PCS8951-88-00 15:38:00* Test Item Value Reference Range Interpretation Comments Urine WBC (test code = 5821-4) 6-10 0-5 H [facility] HospitalUrine HEB6250-39-42 15:38:00* Test Item Value Reference Range Interpretation Comments Urine RBC (test code = 76942-8) 0-5 0-5 [facility] HospitalUrine Shuxygvm3864-09-74 15:38:00* Test Item Value Reference Range Interpretation Comments Urine Bacteria (test code = 34604-3) MANY NONE H [facility] HospitalUrine Epithelial Gsmlz4472-35-00 15:38:00 * Test Item Value Reference Range Interpretation Comments Urine Epithelial Cells (test code = 04491-2) MANY NONE [facility] HospitalUrine MUC0733-43-20 15:38:00* Test Item Value Reference Range Interpretation Comments Urine WBC (test code = 5821-4) 6-10 0-5 H [facility] HospitalUrine LEA9802-55-31 15:38:00* Test Item Value Reference Range Interpretation Comments Urine RBC (test code = 18320-0) 0-5 0-5 [facility] HospitalUrine Dyiuiwbo7733-39-93 15:38:00* Test Item Value Reference Range Interpretation Comments Urine Bacteria (test code = 71802-4) MANY NONE H [facility] HospitalUrine Epithelial Tjtwh9368-39-79 15:38:00 * Test Item Value Reference Range Interpretation Comments Urine Epithelial Cells (test code = 58277-4) MANY NONE [facility] HospitalUrine Rzewk4973-01-76 15:34:00* Test Item Value Reference Range Interpretation Comments Urine Color (test code = 5778-6) YELLOW YELLOW [facility] HospitalUrine Ulxgeku0894-19-99 15:34:00* Test Item Value Reference Range Interpretation Comments Urine Clarity (test code = 22136-8) CLOUDY CLEAR H [facility] HospitalUrine Specific Qmmvyyz4967-20-15 15:34:00 * Test Item Value Reference Range Interpretation Comments Urine Specific [place] (test code = 5811-5) 1.025 1.010-1.02 5 [facility] HospitalUrine pD6134-78-33 15:34:00* Test Item Value Reference Range Interpretation Comments Urine pH (test code = 77591-4) 6 5-7 [facility] HospitalUrine Leukocyte Kgbakwfi4403-23-83 15:34:00* Test Item Value Reference Range Interpretation Comments Urine Leukocyte Esterase (test code = 5799-2) NEGATIVE NEGATIVE [facility] HospitalU[facility] Uwwzsdy7697-41-28 15:34:00* Test Item Value Reference Range Interpretation Comments Urine Nitrite (test code = 02748-9) POSITIVE NEGATIVE [facility] HospitalUrine Kzdwjml0640-02-46 15:34:00* Test Item Value Reference Range Interpretation Comments Urine Protein (test code = 5804-0) NEGATIVE NEGATIVE [facility] HospitalUrine Glucose (UA)2019-12-11 15:34:00* Test Item Value Reference Range Interpretation Comments Urine Glucose (UA) (test code = 2349-9) 3+ NEGATIVE [facility] HospitalUrine Edvgipq9430-71-09 15:34:00* Test Item Value Reference Range Interpretation Comments Urine Ketones (test code = 75085-9) NEGATIVE NEGATIVE [facility] HospitalUrine Wagpycsiffve5861-28-70 15:34:00* Test Item Value Reference Range Interpretation Comments Urine Urobilinogen (test code = 58616-3) 0.2 0.2-1 [facility] HospitalUrine Kkwewfsny8858-26-05 15:34:00* Test Item Value Reference Range Interpretation Comments Urine Bilirubin (test code = 1978-6) NEGATIVE NEGATIVE [facility] HospitalU[facility] Ksazc6100-36-37 15:34:00* Test Item Value Reference Range Interpretation Comments Urine Blood (test code = 89084-5) NEGATIVE NEGATIVE [facility] HospitalU[facility] Pimkf9573-77-65 15:34:00* Test Item Value Reference Range Interpretation Comments Urine Color (test code = 5778-6) YELLOW YELLOW [facility] HospitalUrine Hqfjyqa6189-39-79 15:34:00* Test Item Value Reference Range Interpretation Comments Urine Clarity (test code = 03562-0) CLOUDY CLEAR H [facility] HospitalUrine Specific Sclswua8306-76-12 15:34:00 * Test Item Value Reference Range Interpretation Comments Urine Specific [place] (test code = 5811-5) 1.025 1.010-1.02 5 [facility] HospitalUrine xW7157-97-03 15:34:00* Test Item Value Reference Range Interpretation Comments Urine pH (test code = 55936-4) 6 5-7 [facility] HospitalU[facility] Leukocyte Egxyknnf0277-00-26 15:34:00* Test Item Value Reference Range Interpretation Comments Urine Leukocyte Esterase (test code = 5799-2) NEGATIVE NEGATIVE [facility] HospitalU[facility] Oniqses2310-22-32 15:34:00* Test Item Value Reference Range Interpretation Comments Urine Nitrite (test code = 08831-8) POSITIVE NEGATIVE [facility] HospitalU[facility] Cdctwzi0693-95-82 15:34:00* Test Item Value Reference Range Interpretation Comments Urine Protein (test code = 5804-0) NEGATIVE NEGATIVE [facility] HospitalUrine Glucose (UA)2019-12-11 15:34:00* Test Item Value Reference Range Interpretation Comments Urine Glucose (UA) (test code = 2349-9) 3+ NEGATIVE [facility] HospitalU[facility] Pdnlfpy9205-55-90 15:34:00* Test Item Value Reference Range Interpretation Comments Urine Ketones (test code = 14274-0) NEGATIVE NEGATIVE [facility] HospitalU[facility] Htveblzfdzjt5836-59-43 15:34:00* Test Item Value Reference Range Interpretation Comments Urine Urobilinogen (test code = 53648-9) 0.2 0.2-1 [facility] HospitalU[facility] Lxrpfivri6731-19-23 15:34:00* Test Item Value Reference Range Interpretation Comments Urine Bilirubin (test code = 1978-6) NEGATIVE NEGATIVE [facility] HospitalUrine Pxzpy4041-60-74 15:34:00* Test Item Value Reference Range Interpretation Comments Urine Blood (test code = 03814-2) NEGATIVE NEGATIVE [facility] HospitalCT ABDOMEN/PELVIS Y2386-48-08 15:10:00 [facility] [address] [place] [address] Patient Name: LEIA MUELLER MR #: [id number] : 1955 Age/Sex: 64/F Req #: [id number] Adm Physician: Ordered by: PANFILO CASILLAS MD Report #: [id number] Location: ER Room/Bed: Procedure: [id number] CT/CT ABDOMEN/PELVIS W Exam Date: 07/16/19 Exam Time: 140 5 REPORT STATUS: Signed EXAM: CT Abdomen and Pelvis WITH intravenous contrast INDICATION: Abdominal pain, nausea COMPARISON: CT abdomen and pelvis of 04/03/2019 TECHNIQUE: Abdo men and pelvis were scanned utilizing a multidetector helical scanner from the lung base to the pubic symphysis after administration of IV contrast. Coronal and sagittal reformations were obtained. Routine protocol was performed. Scan was performed during portal venous phase. IV CONTRAST: 100mL of Isovu e 370 ORAL CONTRAST: Gastrografin RADIATION DOSE: Total DLP: 841.9 mGy *cm Dose modulation, iterative reconstruction, and/or weight based adjustme nt of the mA/kV was utilized to reduce the radiation dose to as low as reasona demarcus achievable. FINDINGS: LOWER THORAX: No focal consolidation HE PATOBILIARY: Diffuse hepatic steatosis. No focal liver lesion. No biliary duct al dilation. Status post cholecystectomy. SPLEEN: No splenomegaly. GRIMES CREAS: No focal masses or ductal dilatation. ADRENALS: No adrenal nodules. KIDNEYS/URETERS: No hydronephrosis, stones, or solid mass lesions. PELVIC OR HOSEA/BLADDER: Status post hysterectomy. PERITONEUM / RETROPERITONEUM: No fr ee air or fluid. LYMPH NODES: No lymphadenopathy. VESSELS: Mild scattered at herosclerotic calcifications of the nonaneurysmal abdominal aorta and major br anches. GI TRACT: No abnormal bowel wall thickening. No bowel obstruction. BONES AND SOFT TISSUES: No acute osseous injury. No suspicious lytic or melina stic lesions. Mild degenerative changes of the visualized spine. IMPRESSI ON: No acute findings in the abdomen or pelvis. Diffuse hepatic steatosi s. Signed by: Anni Hernandez MD on 07/16/2019 3:23 PM Dictated By: COSTA HERNANDEZ MD 1523 Transcrib ed By: CEE on 07/16/19 1523 COPY TO: PANFILO CASILLAS MD Urine [id number] 13:18:00* Test Item Value Reference Range Interpretation Comments Urine WBC (test code = 5821-4) >50 0-5 H [facility] HospitalU[facility] LTU7446-97-06 13:18:00* Test Item Value Reference Range Interpretation Comments Urine RBC (test code = 22562-6) 21-50 0-5 H [facility] HospitalUrine Gzcwdujw2665-58-48 13:18:00* Test Item Value Reference Range Interpretation Comments Urine Bacteria (test code = 98330-5) MANY NONE H [facility] HospitalUrine Epithelial Nssss6578-83-64 13:18:00 * Test Item Value Reference Range Interpretation Comments Urine Epithelial Cells (test code = 18693-4) MANY NONE [facility] HospitalCreatine Kinase [id number] 13:13:00* Test Item Value Reference Range Interpretation Comments Creatine Kinase MB (test code = 62580-8) 0.80 0-5.0 [facility] HospitalTrh[facility] hospitaln [id number] 13:13:00* Test Item Value Reference Range Interpretation Comments Troponin I (test code = [id number]) < 0.001 0-0.300 [facility] HospitalCreatine Kinase FY4692-07-34 13:13:00* Test Item Value Reference Range Interpretation Comments Creatine Kinase MB (test code = 17781-3) 0.80 0-5.0 [facility] HospitalTroponin M2857-98-55 13:13:00* Test Item Value Reference Range Interpretation Comments Troponin I (test code = YRN0805) < 0.001 0-0.300 [facility] HospitalCreatine Kinase ZO6373-23-72 13:13:00* Test Item Value Reference Range Interpretation Comments Creatine Kinase MB (test code = 83039-7) 0.80 0-5.0 [place] [id number] 13:13:00* Test Item Value Reference Range Interpretation Comments Troponin I (test code = MZA7916) < 0.001 0-0.300 [facility] HospitalUrine Hqbto6064-33-64 13:11:00* Test Item Value Reference Range Interpretation Comments Urine Color (test code = 5778-6) YELLOW YELLOW [facility] HospitalUrine Odjxped6625-94-35 13:11:00* Test Item Value Reference Range Interpretation Comments Urine Clarity (test code = 51466-1) CLOUDY CLEAR H [facility] HospitalUrine Specific Swjhfhb2940-72-37 13:11:00 * Test Item Value Reference Range Interpretation Comments Urine Specific [place] (test code = 5811-5) 1.010 1.010-1.02 5 [facility] HospitalUrine [id number] 13:11:00* Test Item Value Reference Range Interpretation Comments Urine pH (test code = 79743-5) 6 5-7 [facility] HospitalU[facility] Leukocyte Vzmakxwb3849-15-01 13:11:00* Test Item Value Reference Range Interpretation Comments Urine Leukocyte Esterase (test code = 19150-7) MODERATE NEGATIV E [facility] HospitalUrine Jjgikbh2565-66-21 13:11:00* Test Item Value Reference Range Interpretation Comments Urine Nitrite (test code = 93606-0) NEGATIVE NEGATIVE [facility] HospitalU[facility] Vjmcitt5567-48-00 13:11:00* Test Item Value Reference Range Interpretation Comments Urine Protein (test code = 65191-8) NEGATIVE NEGATIVE [facility] HospitalUrine Glucose (UA)2019-07-16 13:11:00* Test Item Value Reference Range Interpretation Comments Urine Glucose (UA) (test code = 82243-2) 3+ NEGATIVE H [facility] Nexflhv5406-05-94 13:11:00* Test Item Value Reference Range Interpretation Comments Urine Ketones (test code = 72730-4) NEGATIVE NEGATIVE [facility] Ltdnrodabzfo5688-74-14 13:11:00* Test Item Value Reference Range Interpretation Comments Urine Urobilinogen (test code = 20585-8) 0.2 0.2-1 [facility] Uiflxtsdh5619-70-18 13:11:00* Test Item Value Reference Range Interpretation Comments Urine Bilirubin (test code = 1977-8) NEGATIVE NEGATIVE [facility] Eiimx6319-80-78 13:11:00* Test Item Value Reference Range Interpretation Comments Urine Blood (test code = 60690-1) TRACE NEGATIVE [facility] Emdzg3365-33-11 13:04:00* Test Item Value Reference Range Interpretation Comments Sodium Level (test code = 2951-2) 139 136-145 [facility]Pot[facility] Hwivf7144-75-69 13:04:00* Test Item Value Reference Range Interpretation Comments Potassium Level (test code = 2823-3) 3.7 3.5-5.1 [facility] HospitalChloride Unuii2656-07-97 13:04:00* Test Item Value Reference Range Interpretation Comments Chloride Level (test code = 2075-0) 101 98-107 [facility] HospitalCarbon Dioxide Juwqv1703-20-78 13:04:00* Test Item Value Reference Range Interpretation Comments Carbon Dioxide Level (test code = 2028-9) 29 22-29 [facility] HospitalAnion Zzv4455-83-92 13:04:00* Test Item Value Reference Range Interpretation Comments Anion Gap (test code = 52945-3) 12.7 8-16 [facility] HospitalBlood Urea Ktpkqlxb9687-57-72 13:04:00* Test Item Value Reference Range Interpretation Comments Blood Urea Nitrogen (test code = 3094-0) 10 7-26 [facility] HospitalCreatinine2019-10-07 13:04:00* Test Item Value Reference Range Interpretation Comments Creatinine (test code = 2160-0) 0.82 0.57-1.11 [facility] HospitalBUN/Creatinine Lfrvf9810-30-83 13:04:00* Test Item Value Reference Range Interpretation Comments BUN/Creatinine Ratio (test code = 3097-3) 12 6-25 [facility] HospitalEstimat Glomerular Filtration Rate 2019-07-16 13:04:00* Test Item Value Reference Range Interpretation Comments Estimat Glomerular Filtration Rate (test code = 885951642) > 60 >60 Ranges were taken from the National Kidney Disease Education Program and the [place] community health[employer] literature.Reference ranges:60 or greater: Lapked66-98 ( for 3 consecutive months): Chronic kidney disease 15 or less: Kidney failureHouston [facility] Willowbrook HospitalGlucose Fnbvu8488-22-96 13:04:00* Test Item Value Reference Range Interpretation Comments Glucose Level (test code = FMB7887) 176 74-118 H [facility] HospitalCalcium Lshgb0863-36-29 13:04:00* Test Item Value Reference Range Interpretation Comments Calcium Level (test code = 37771-2) 9.4 8.4-10.2 [facility] HospitalTotal Mcbkatsun4354-42-11 13:04:00* Test Item Value Reference Range Interpretation Comments Total Bilirubin (test code = 1975-2) 0.3 0.2-1.2 [facility] HospitalAspartate Amino Transf (AST/SGOT) 2019-07-16 13:04:00* Test Item Value Reference Range Interpretation Comments Aspartate Amino Transf (AST/SGOT) (test code = Aspartate Amino Transf (AST/SGOT)) 43 5-34 H [facility] HospitalAlanine Aminotransferase (ALT/SGPT) 2019-07-16 13:04:00* Test Item Value Reference Range Interpretation Comments Alanine Aminotransferase (ALT/SGPT) (test code = 1742-6) 35 0-55 [facility] HospitalTotal Vlzdjba3961-66-77 13:04:00* Test Item Value Reference Range Interpretation Comments Total Protein (test code = 2885-2) 7.1 6.5-8.1 [facility] HospitalAlbumin2019-10-07 13:04:00* Test Item Value Reference Range Interpretation Comments Albumin (test code = 1751-7) 3.3 3.5-5.0 L [facility] HospitalGlobulin2019-10-07 13:04:00* Test Item Value Reference Range Interpretation Comments Globulin (test code = 18384-3) 3.8 2.3-3.5 H [facility] HospitalAlbumin/Globulin Ukssm2763-08-09 13:04:00 * Test Item Value Reference Range Interpretation Comments Albumin/Globulin Ratio (test code = 1759-0) 0.9 0.8-2.0 [facility] HospitalAlkaline Vshakhfcwie6173-95-94 13:04:00* Test Item Value Reference Range Interpretation Comments Alkaline Phosphatase (test code = 6768-6) 121 40-150 [facility] HospitalCreatine Trghvl4280-16-21 13:04:00* Test Item Value Reference Range Interpretation Comments Creatine Kinase (test code = 2157-6) 32 29-168 [facility]odium Xxfuq6654-16-14 13:04:00* Test Item Value Reference Range Interpretation Comments Sodium Level (test code = 2951-2) 139 136-145 [facility] HospitalPotassium Pimcf8275-32-19 13:04:00* Test Item Value Reference Range Interpretation Comments Potassium Level (test code = 2823-3) 3.7 3.5-5.1 [facility] HospitalChloride Jxhwq1519-80-70 13:04:00* Test Item Value Reference Range Interpretation Comments Chloride Level (test code = 2075-0) 101 98-107 [facility] HospitalCarbon Dioxide Nfosq3409-25-14 13:04:00* Test Item Value Reference Range Interpretation Comments Carbon Dioxide Level (test code = 2028-9) 29 22-29 [facility] HospitalAnion Qsh0125-56-68 13:04:00* Test Item Value Reference Range Interpretation Comments Anion Gap (test code = 90471-3) 12.7 8-16 [facility] HospitalBlood Urea Hddtenhh1437-47-37 13:04:00* Test Item Value Reference Range Interpretation Comments Blood Urea Nitrogen (test code = 3094-0) 10 7-26 [facility] HospitalCreatinine2019-10-07 13:04:00* Test Item Value Reference Range Interpretation Comments Creatinine (test code = 2160-0) 0.82 0.57-1.11 [facility] HospitalBUN/Creatinine Yyhad0971-23-74 13:04:00* Test Item Value Reference Range Interpretation Comments BUN/Creatinine Ratio (test code = 3097-3) 12 6-25 [facility] HospitalEstimat Glomerular Filtration Rate 2019-07-16 13:04:00* Test Item Value Reference Range Interpretation Comments Estimat Glomerular Filtration Rate (test code = 942342559) > 60 >60 Ranges were taken from the National Kidney Disease Education Program and the [place] community health[facility] Kidney Foundation literature.Reference ranges:60 or greater: Udgrzq94-35 ( for 3 consecutive months): Chronic kidney disease 15 or less: Kidney failureHouston Methodist Willowbrook HospitalGlucose Iqsjm1203-76-70 13:04:00* Test Item Value Reference Range Interpretation Comments Glucose Level (test code = SRT1775) 176 74-118 H [facility] HospitalCalcium Hlqwn1006-20-43 13:04:00* Test Item Value Reference Range Interpretation Comments Calcium Level (test code = 81181-4) 9.4 8.4-10.2 [facility] HospitalTotal Rmhfxtsym2628-33-61 13:04:00* Test Item Value Reference Range Interpretation Comments Total Bilirubin (test code = 1975-2) 0.3 0.2-1.2 [facility] HospitalAspartate Amino Transf (AST/SGOT) 2019-07-16 13:04:00* Test Item Value Reference Range Interpretation Comments Aspartate Amino Transf (AST/SGOT) (test code = Aspartate Amino Transf (AST/SGOT)) 43 5-34 H [facility] HospitalAlanine Aminotransferase (ALT/SGPT) 2019-07-16 13:04:00* Test Item Value Reference Range Interpretation Comments Alanine Aminotransferase (ALT/SGPT) (test code = 1742-6) 35 0-55 [facility] HospitalTotal Sqwlfgv9898-38-61 13:04:00* Test Item Value Reference Range Interpretation Comments Total Protein (test code = 2885-2) 7.1 6.5-8.1 [facility] HospitalAlbumin2019-10-07 13:04:00* Test Item Value Reference Range Interpretation Comments Albumin (test code = 1751-7) 3.3 3.5-5.0 L [facility] HospitalGlobulin2019-10-07 13:04:00* Test Item Value Reference Range Interpretation Comments Globulin (test code = 27688-8) 3.8 2.3-3.5 H [facility] HospitalAlbumin/Globulin Ejblh4837-58-52 13:04:00 * Test Item Value Reference Range Interpretation Comments Albumin/Globulin Ratio (test code = 1759-0) 0.9 0.8-2.0 [facility] HospitalAlkaline Echsnuatyzm8276-38-81 13:04:00* Test Item Value Reference Range Interpretation Comments Alkaline Phosphatase (test code = 6768-6) 121 40-150 [facility] HospitalCreatine Qanfuk0838-44-85 13:04:00* Test Item Value Reference Range Interpretation Comments Creatine Kinase (test code = 2157-6) 32 29-168 [facility] Campusodium Zlixp7223-59-74 13:04:00* Test Item Value Reference Range Interpretation Comments Sodium Level (test code = 2951-2) 139 136-145 [facility] HospitalPotassium Mpcdz0936-30-86 13:04:00* Test Item Value Reference Range Interpretation Comments Potassium Level (test code = 2823-3) 3.7 3.5-5.1 [facility] HospitalChloride Frbxo3025-75-28 13:04:00* Test Item Value Reference Range Interpretation Comments Chloride Level (test code = 2075-0) 101 98-107 [facility] HospitalCarbon Dioxide Crdrs6325-87-73 13:04:00* Test Item Value Reference Range Interpretation Comments Carbon Dioxide Level (test code = 2028-9) 29 22-29 [facility] HospitalAnion Afx6311-92-53 13:04:00* Test Item Value Reference Range Interpretation Comments Anion Gap (test code = 13636-3) 12.7 8-16 [facility] HospitalBlood Urea Khxkouvj2154-38-06 13:04:00* Test Item Value Reference Range Interpretation Comments Blood Urea Nitrogen (test code = 3094-0) 10 7-26 [facility] HospitalCreatinine2019-10-07 13:04:00* Test Item Value Reference Range Interpretation Comments Creatinine (test code = 2160-0) 0.82 0.57-1.11 [facility] HospitalBUN/Creatinine Ttgoq1407-72-14 13:04:00* Test Item Value Reference Range Interpretation Comments BUN/Creatinine Ratio (test code = 3097-3) 12 6-25 [facility] HospitalEstimat Glomerular Filtration Rate 2019-07-16 13:04:00* Test Item Value Reference Range Interpretation Comments Estimat Glomerular Filtration Rate (test code = 491417030) > 60 >60 Ranges were taken from the National Kidney Disease Education Program and the [place] community health[facility] Kidney Foundation literature.Reference ranges:60 or greater: Mewncf13-46 ( for 3 consecutive months): Chronic kidney disease 15 or less: Kidney failureHouston Methodist Willowbrook HospitalGlucose Crgnu0540-56-14 13:04:00* Test Item Value Reference Range Interpretation Comments Glucose Level (test code = SFE2841) 176 74-118 H [facility] HospitalCalcium Iylta8489-24-95 13:04:00* Test Item Value Reference Range Interpretation Comments Calcium Level (test code = 10124-1) 9.4 8.4-10.2 [facility] HospitalTotal Ndlyqbtqe0189-85-45 13:04:00* Test Item Value Reference Range Interpretation Comments Total Bilirubin (test code = 1975-2) 0.3 0.2-1.2 [facility] HospitalAspartate Amino Transf (AST/SGOT) 2019-07-16 13:04:00* Test Item Value Reference Range Interpretation Comments Aspartate Amino Transf (AST/SGOT) (test code = Aspartate Amino Transf (AST/SGOT)) 43 5-34 H [facility] HospitalAlanine Aminotransferase (ALT/SGPT) 2019-07-16 13:04:00* Test Item Value Reference Range Interpretation Comments Alanine Aminotransferase (ALT/SGPT) (test code = 1742-6) 35 0-55 [facility] HospitalTotal Krcyfho8208-69-37 13:04:00* Test Item Value Reference Range Interpretation Comments Total Protein (test code = 2885-2) 7.1 6.5-8.1 [facility] HospitalAlbumin2019-10-07 13:04:00* Test Item Value Reference Range Interpretation Comments Albumin (test code = 1751-7) 3.3 3.5-5.0 L [facility] HospitalGlobulin2019-10-07 13:04:00* Test Item Value Reference Range Interpretation Comments Globulin (test code = 42322-7) 3.8 2.3-3.5 H [facility] HospitalAlbumin/Globulin Xrbik0101-49-95 13:04:00 * Test Item Value Reference Range Interpretation Comments Albumin/Globulin Ratio (test code = 1759-0) 0.9 0.8-2.0 [facility] HospitalAlkaline Ckimkxqjbsz7117-60-20 13:04:00* Test Item Value Reference Range Interpretation Comments Alkaline Phosphatase (test code = 6768-6) 121 40-150 [facility] HospitalCreatine Ipwayi2950-02-53 13:04:00* Test Item Value Reference Range Interpretation Comments Creatine Kinase (test code = 2157-6) 32 29-168 [facility] HospitalWhite Blood Gbdfd9827-54-66 12:59:00* Test Item Value Reference Range Interpretation Comments White Blood Count (test code = 6690-2) 8.47 4.8-10.8 [facility] HospitalRed Blood Hvjvw1779-48-46 12:59:00* Test Item Value Reference Range Interpretation Comments Red Blood Count (test code = 789-8) 4.89 3.6-5.1 [facility] HospitalHemoglobin2019-10-07 12:59:00* Test Item Value Reference Range Interpretation Comments Hemoglobin (test code = 54492-7) 14.3 12.0-16.0 [facility] HospitalHematocrit2019-10-07 12:59:00* Test Item Value Reference Range Interpretation Comments Hematocrit (test code = 4544-3) 42.6 34.2-44.1 [facility] HospitalMean Corpuscular Eawwwp0097-87-18 12:59:00* Test Item Value Reference Range Interpretation Comments Mean Corpuscular Volume (test code = 787-2) 87.1 81-99 [facility] HospitalMean Corpuscular Jvdmqdmedj5588-36-23 12:59:00* Test Item Value Reference Range Interpretation Comments Mean Corpuscular Hemoglobin (test code = 785-6) 29.2 28-32 [facility] HospitalMean Corpuscular Hemoglobin Concent 2019-07-16 12:59:00* Test Item Value Reference Range Interpretation Comments Mean Corpuscular Hemoglobin Concent (test code = 786-4) 33.6 31-35 [facility] HospitalRed Cell Distribution Saxhw9377-19-51 12:59:00* Test Item Value Reference Range Interpretation Comments Red Cell Distribution Width (test code = 95736-0) 13.2 11.7 -14.4 [facility] HospitalPlatelet Fnjed5886-25-99 12:59:00* Test Item Value Reference Range Interpretation Comments Platelet Count (test code = 777-3) 325 140-360 [facility] HospitalNeutrophils (%) (Auto)2019-07-16 12:59:00 * Test Item Value Reference Range Interpretation Comments Neutrophils (%) (Auto) (test code = 44885-1) 65.6 38.7-80.0 [facility] HospitalLymphocytes (%) (Auto)2019-07-16 12:59:00 * Test Item Value Reference Range Interpretation Comments Lymphocytes (%) (Auto) (test code = 736-9) 27.9 18.0-39.1 [facility] HospitalMonocytes (%) (Auto)2019-07-16 12:59:00* Test Item Value Reference Range Interpretation Comments Monocytes (%) (Auto) (test code = 5905-5) 3.4 4.4-11.3 L [facility] HospitalEosinophils (%) (Auto)2019-07-16 12:59:00 * Test Item Value Reference Range Interpretation Comments Eosinophils (%) (Auto) (test code = 713-8) 2.0 0.0-6.0 [facility] HospitalBasophils (%) (Auto)2019-07-16 12:59:00* Test Item Value Reference Range Interpretation Comments Basophils (%) (Auto) (test code = 706-2) 0.7 0.0-1.0 [facility] HospitalIM GRANULOCYTES %2019-07-16 12:59:00* Test Item Value Reference Range Interpretation Comments IM GRANULOCYTES % (test code = IM GRANULOCYTES %) 0.4 0.0- 1.0 [facility] HospitalNeutrophils # (Auto)2019-07-16 12:59:00* Test Item Value Reference Range Interpretation Comments Neutrophils # (Auto) (test code = 751-8) 5.6 2.1-6.9 [facility] HospitalLymphocytes # (Auto)2019-07-16 12:59:00* Test Item Value Reference Range Interpretation Comments Lymphocytes # (Auto) (test code = 36799-8) 2.4 1.0-3.2 [facility] HospitalMonocytes # (Auto)2019-07-16 12:59:00* Test Item Value Reference Range Interpretation Comments Monocytes # (Auto) (test code = 742-7) 0.3 0.2-0.8 [facility] HospitalEosinophils # (Auto)2019-07-16 12:59:00* Test Item Value Reference Range Interpretation Comments Eosinophils # (Auto) (test code = 711-2) 0.2 0.0-0.4 [facility] HospitalBasophils # (Auto)2019-07-16 12:59:00* Test Item Value Reference Range Interpretation Comments Basophils # (Auto) (test code = 704-7) 0.1 0.0-0.1 [facility] HospitalAbsolute Immature Granulocyte (auto 2019-07-16 12:59:00* Test Item Value Reference Range Interpretation Comments Absolute Immature Granulocyte (auto (laura t code = Absolute Immature Granulocyte (auto) 0.03 0-0.1 [facility] HospitalWhite Blood Uitda5884-27-12 12:59:00* Test Item Value Reference Range Interpretation Comments White Blood Count (test code = 6690-2) 8.47 4.8-10.8 [facility] HospitalRed Blood Qfank1828-86-83 12:59:00* Test Item Value Reference Range Interpretation Comments Red Blood Count (test code = 789-8) 4.89 3.6-5.1 [facility] HospitalHemoglobin2019-10-07 12:59:00* Test Item Value Reference Range Interpretation Comments Hemoglobin (test code = 29097-2) 14.3 12.0-16.0 [facility] HospitalHematocrit2019-10-07 12:59:00* Test Item Value Reference Range Interpretation Comments Hematocrit (test code = 4544-3) 42.6 34.2-44.1 [facility] HospitalMean Corpuscular Espxlv2172-40-65 12:59:00* Test Item Value Reference Range Interpretation Comments Mean Corpuscular Volume (test code = 787-2) 87.1 81-99 [facility] HospitalMean Corpuscular Tvdowabdoo7206-51-50 12:59:00* Test Item Value Reference Range Interpretation Comments Mean Corpuscular Hemoglobin (test code = 785-6) 29.2 28-32 [facility] HospitalMean Corpuscular Hemoglobin Concent 2019-07-16 12:59:00* Test Item Value Reference Range Interpretation Comments Mean Corpuscular Hemoglobin Concent (test code = 786-4) 33.6 31-35 [facility] HospitalRed Cell Distribution Ycnds6974-38-77 12:59:00* Test Item Value Reference Range Interpretation Comments Red Cell Distribution Width (test code = 52051-0) 13.2 11.7 -14.4 [facility] HospitalPlatelet Yreea9840-98-90 12:59:00* Test Item Value Reference Range Interpretation Comments Platelet Count (test code = 777-3) 325 140-360 [facility] HospitalNeutrophils (%) (Auto)2019-07-16 12:59:00 * Test Item Value Reference Range Interpretation Comments Neutrophils (%) (Auto) (test code = 12872-6) 65.6 38.7-80.0 [facility] HospitalLymphocytes (%) (Auto)2019-07-16 12:59:00 * Test Item Value Reference Range Interpretation Comments Lymphocytes (%) (Auto) (test code = 736-9) 27.9 18.0-39.1 [facility] HospitalMonocytes (%) (Auto)2019-07-16 12:59:00* Test Item Value Reference Range Interpretation Comments Monocytes (%) (Auto) (test code = 5905-5) 3.4 4.4-11.3 L [facility] HospitalEosinophils (%) (Auto)2019-07-16 12:59:00 * Test Item Value Reference Range Interpretation Comments Eosinophils (%) (Auto) (test code = 713-8) 2.0 0.0-6.0 [facility] HospitalBasophils (%) (Auto)2019-07-16 12:59:00* Test Item Value Reference Range Interpretation Comments Basophils (%) (Auto) (test code = 706-2) 0.7 0.0-1.0 [facility] HospitalIM GRANULOCYTES %2019-07-16 12:59:00* Test Item Value Reference Range Interpretation Comments IM GRANULOCYTES % (test code = IM GRANULOCYTES %) 0.4 0.0- 1.0 [facility] HospitalNeutrophils # (Auto)2019-07-16 12:59:00* Test Item Value Reference Range Interpretation Comments Neutrophils # (Auto) (test code = 751-8) 5.6 2.1-6.9 [facility] HospitalLymphocytes # (Auto)2019-07-16 12:59:00* Test Item Value Reference Range Interpretation Comments Lymphocytes # (Auto) (test code = 50978-0) 2.4 1.0-3.2 [facility] HospitalMonocytes # (Auto)2019-07-16 12:59:00* Test Item Value Reference Range Interpretation Comments Monocytes # (Auto) (test code = 742-7) 0.3 0.2-0.8 [facility] HospitalEosinophils # (Auto)2019-07-16 12:59:00* Test Item Value Reference Range Interpretation Comments Eosinophils # (Auto) (test code = 711-2) 0.2 0.0-0.4 [facility] HospitalBasophils # (Auto)2019-07-16 12:59:00* Test Item Value Reference Range Interpretation Comments Basophils # (Auto) (test code = 704-7) 0.1 0.0-0.1 [facility] HospitalAbsolute Immature Granulocyte (auto 2019-07-16 12:59:00* Test Item Value Reference Range Interpretation Comments Absolute Immature Granulocyte (auto (laura t code = Absolute Immature Granulocyte (auto) 0.03 0-0.1 [facility] HospitalWhite Blood Qckla7127-27-10 12:59:00* Test Item Value Reference Range Interpretation Comments White Blood Count (test code = 6690-2) 8.47 4.8-10.8 [facility] HospitalRed Blood Gtjev1871-58-84 12:59:00* Test Item Value Reference Range Interpretation Comments Red Blood Count (test code = 789-8) 4.89 3.6-5.1 [facility] HospitalHemoglobin2019-10-07 12:59:00* Test Item Value Reference Range Interpretation Comments Hemoglobin (test code = 51607-9) 14.3 12.0-16.0 [facility] HospitalHematocrit2019-10-07 12:59:00* Test Item Value Reference Range Interpretation Comments Hematocrit (test code = 4544-3) 42.6 34.2-44.1 [facility] HospitalMean Corpuscular Kdkswt5073-91-28 12:59:00* Test Item Value Reference Range Interpretation Comments Mean Corpuscular Volume (test code = 787-2) 87.1 81-99 [facility] HospitalMean Corpuscular Lbckqhmkkt8543-00-83 12:59:00* Test Item Value Reference Range Interpretation Comments Mean Corpuscular Hemoglobin (test code = 785-6) 29.2 28-32 [facility] HospitalMean Corpuscular Hemoglobin Concent 2019-07-16 12:59:00* Test Item Value Reference Range Interpretation Comments Mean Corpuscular Hemoglobin Concent (test code = 786-4) 33.6 31-35 [facility] HospitalRed Cell Distribution Adfxg9162-98-29 12:59:00* Test Item Value Reference Range Interpretation Comments Red Cell Distribution Width (test code = 85890-0) 13.2 11.7 -14.4 [facility] HospitalPlatelet Dtbng7807-82-47 12:59:00* Test Item Value Reference Range Interpretation Comments Platelet Count (test code = 777-3) 325 140-360 [facility] HospitalNeutrophils (%) (Auto)2019-07-16 12:59:00 * Test Item Value Reference Range Interpretation Comments Neutrophils (%) (Auto) (test code = 71250-6) 65.6 38.7-80.0 [facility] HospitalLymphocytes (%) (Auto)2019-07-16 12:59:00 * Test Item Value Reference Range Interpretation Comments Lymphocytes (%) (Auto) (test code = 736-9) 27.9 18.0-39.1 [facility] HospitalMonocytes (%) (Auto)2019-07-16 12:59:00* Test Item Value Reference Range Interpretation Comments Monocytes (%) (Auto) (test code = 5905-5) 3.4 4.4-11.3 L [facility] HospitalEosinophils (%) (Auto)2019-07-16 12:59:00 * Test Item Value Reference Range Interpretation Comments Eosinophils (%) (Auto) (test code = 713-8) 2.0 0.0-6.0 [facility] HospitalBasophils (%) (Auto)2019-07-16 12:59:00* Test Item Value Reference Range Interpretation Comments Basophils (%) (Auto) (test code = 706-2) 0.7 0.0-1.0 [facility] HospitalIM GRANULOCYTES %2019-07-16 12:59:00* Test Item Value Reference Range Interpretation Comments IM GRANULOCYTES % (test code = IM GRANULOCYTES %) 0.4 0.0- 1.0 [facility] HospitalNeutrophils # (Auto)2019-07-16 12:59:00* Test Item Value Reference Range Interpretation Comments Neutrophils # (Auto) (test code = 751-8) 5.6 2.1-6.9 [facility] HospitalLymphocytes # (Auto)2019-07-16 12:59:00* Test Item Value Reference Range Interpretation Comments Lymphocytes # (Auto) (test code = 90185-5) 2.4 1.0-3.2 [facility] HospitalMonocytes # (Auto)2019-07-16 12:59:00* Test Item Value Reference Range Interpretation Comments Monocytes # (Auto) (test code = 742-7) 0.3 0.2-0.8 [facility] HospitalEosinophils # (Auto)2019-07-16 12:59:00* Test Item Value Reference Range Interpretation Comments Eosinophils # (Auto) (test code = 711-2) 0.2 0.0-0.4 [facility]Basophils # (Auto)2019-07-16 12:59:00* Test Item Value Reference Range Interpretation Comments Basophils # (Auto) (test code = 704-7) 0.1 0.0-0.1 [facility] HospitalAbsolute Immature Granulocyte (auto 2019-07-16 12:59:00* Test Item Value Reference Range Interpretation Comments Absolute Immature Granulocyte (auto (laura t code = Absolute Immature Granulocyte (auto) 0.03 0-0.1 [facility] Fclqbuy6975-63-36 12:19:00* Test Item Value Reference Range Interpretation Comments Bedside Glucose (test code = 04954-1) 166 70-120 H Meter ID: [id number] [facility] Glucose 2019-07-16 12:19:00* Test Item Value Reference Range Interpretation Comments Bedside Glucose (test code = 50034-2) 166 70-120 H Meter ID: [id number] Glucose 2019-07-16 12:19:00* Test Item Value Reference Range Interpretation Comments Bedside Glucose (test code = 76940-3) 166 70-120 H Meter ID: [id number] [facility] Willow[facility] HospitalUrine Culture 2019-04-05 07:17:00* Test Item Value Reference Range Interpretation Comments Urine Culture (test code = 630-4) No Result Data Provided [facility] HospitalUrine Zqrrgtc5904-37-23 07:17:00* Test Item Value Reference Range Interpretation Comments Urine Culture (test code = 630-4) No Result Data Provided [facility] HospitalUrine Beityvq3167-56-37 07:17:00* Test Item Value Reference Range Interpretation Comments Urine Culture (test code = 630-4) No Result Data Provided [facility] HospitalCT ABDOMEN/PELVIS [id number] 15:21:00 [place] [address] Patient Name: LEIA MUELLER MR #: [id number] : 1955 Age/Sex: 63/F Req #: [id number] [facility] Physician: Ordered by: AURELIO GAMBLE MD Report #: [id number] Location: [facility] o/Bed: Procedure: CT/CT A BDOMEN/PELVIS W Exam Date: 04/03/19 Exam Time: 1400 REPORT STATUS: Signed EXAM: CT of the abdomen and pelvis WITH contrast HISTORY: GORGE/LUQ ABD PAIN, chills, left upper quadrant pain, history of cholecystectomy, hysterectomy, tubal lig ation COMPARISON: None. TECHNIQUE: The abdomen and pelvis were sca nned utilizing a multidetector helical scanner. Coronal and sagittal reformat s are provided. PROTOCOL: Routine IV CONTRAST: 100 cc of Isovue-370. ORAL CONTRAST: Water RADIATION D OSE: Total DLP: 828.78 mGy*cm Estimated effective dose: (DLP x 0.015 x size factor) Dose modulation, iterative reconstruction, and/or weight based adjustment of the mA/kV was utilized to reduce the radiation dos e to as low as reasonably achievable. COMPLICATIONS: None F INDINGS: LOWER THORAX: Mild bilateral lower lobe atelectasis versus scarrin g. HEPATOBILIARY: Diffusely decreased attenuation of the liver. No ma ss. No biliary dilation. Metallic clips in the right upper quadrant of the a bdomen are compatible with prior cholecystectomy. SPLEEN: No splenomegaly. PANCREAS: No focal masses or ductal dilatation. Diffuse parenchymal atrop hy. ADRENALS: No discrete adrenal nodule. KIDNEYS/URETERS: No hydronephr osis, stones, or definite solid mass lesions. PELVIC ORGANS/BLADDER: Th e visualized pelvic organs appear unremarkable. GI TRACT: No dilation or wall thickening identified. The appendix is normal. The stomach is decompr essed, which limits evaluation. PERITONEUM / RETROPERITONEUM: No free air o r fluid. LYMPH NODES: No pathologically enlarged lymph node. VESSELS: Mild s cattered atherosclerotic vascular calcifications. BONES: No aggressive osseou s lesion or acute fracture. Mild to moderate multifocal degenerative changes. SOFT TISSUES: A small fat-containing umbilical hernia, without associated i nflammatory changes to suggest vascular compromise. IMPRESSION: 1. N o acute CT abnormality. 2. Hepatic steatosis. 3. Small fat-containing umbi lical hernia. Signed by: Dr. Ezequiel Multani D.O., M.M.M. on 04/03/2019 3:29 PM Dictated By: EZEQUIEL MULTANI DO 1529 Transcribed By: CEE on 04/03/19 1529 COPY TO: AURELIO GAMBLE MD Urine DOB6357-25-70 13:38:00* Test Item Value Reference Range Interpretation Comments Urine WBC (test code = 5821-4) 11-20 0-5 H [facility] HospitalUrine PKH5464-19-56 13:38:00* Test Item Value Reference Range Interpretation Comments Urine RBC (test code = 36150-9) NONE 0-5 [facility] HospitalUrine Saudmmkl7321-20-40 13:38:00* Test Item Value Reference Range Interpretation Comments Urine Bacteria (test code = 93648-8) MANY NONE H [facility] HospitalUrine Epithelial Ckmzt6437-15-63 13:38:00 * Test Item Value Reference Range Interpretation Comments Urine Epithelial Cells (test code = 66580-0) FEW NONE [facility] Campusodium Frmme1411-28-98 13:24:00* Test Item Value Reference Range Interpretation Comments Sodium Level (test code = 2951-2) 135 136-145 L [facility] HospitalPotassium Reijp2775-65-76 13:24:00* Test Item Value Reference Range Interpretation Comments Potassium Level (test code = 2823-3) 4.0 3.5-5.1 [facility] HospitalChloride Ozldr0488-63-15 13:24:00* Test Item Value Reference Range Interpretation Comments Chloride Level (test code = 2075-0) 97 98-107 L [facility] HospitalAnion Qav2569-70-34 13:24:00* Test Item Value Reference Range Interpretation Comments Anion Gap (test code = 97192-5) 14.0 8-16 [facility] HospitalUrine Vqbrn2906-88-91 13:21:00* Test Item Value Reference Range Interpretation Comments Urine Color (test code = 5778-6) YELLOW YELLOW [facility] HospitalUrine Ljadshu3295-43-85 13:21:00* Test Item Value Reference Range Interpretation Comments Urine Clarity (test code = 98460-2) CLEAR CLEAR [facility] HospitalUrine Specific Qdxfuim5101-01-00 13:21:00 * Test Item Value Reference Range Interpretation Comments Urine Specific [place] (test code = 5811-5) <=1.005 1.010-1.02 5 [facility] HospitalUrine vV8181-52-56 13:21:00* Test Item Value Reference Range Interpretation Comments Urine pH (test code = 08389-9) 6.5 5-7 [facility] HospitalUrine Leukocyte Qxrrygek8871-42-25 13:21:00* Test Item Value Reference Range Interpretation Comments Urine Leukocyte Esterase (test code = 56008-6) MODERATE NEGATIV E [facility] HospitalUrine Iktxkol9085-29-43 13:21:00* Test Item Value Reference Range Interpretation Comments Urine Nitrite (test code = 01701-2) NEGATIVE NEGATIVE [facility] HospitalUrine Udeojrq3992-82-95 13:21:00* Test Item Value Reference Range Interpretation Comments Urine Protein (test code = 17408-5) NEGATIVE NEGATIVE [facility] HospitalUrine Glucose (UA)2019-04-03 13:21:00* Test Item Value Reference Range Interpretation Comments Urine Glucose (UA) (test code = 26339-5) 3+ NEGATIVE H [facility] HospitalUrine Rdobgrx1930-52-26 13:21:00* Test Item Value Reference Range Interpretation Comments Urine Ketones (test code = 73129-5) NEGATIVE NEGATIVE [facility] HospitalUrine Dmihmoxsdfos6659-98-72 13:21:00* Test Item Value Reference Range Interpretation Comments Urine Urobilinogen (test code = 41178-1) 0.2 0.2-1 [facility] HospitalUrine Dlogibitf5925-39-60 13:21:00* Test Item Value Reference Range Interpretation Comments Urine Bilirubin (test code = 1977-8) NEGATIVE NEGATIVE [facility] HospitalUrine Lmyha5847-77-78 13:21:00* Test Item Value Reference Range Interpretation Comments Urine Blood (test code = 18453-8) NEGATIVE NEGATIVE [facility] HospitalCreatine Kinase PC6648-60-44 13:15:00* Test Item Value Reference Range Interpretation Comments Creatine Kinase MB (test code = 07942-9) 0.70 0-5.0 [facility] HospitalTroponin S5750-18-70 13:15:00* Test Item Value Reference Range Interpretation Comments Troponin I (test code = EMB2037) < 0.001 0-0.300 [facility] HospitalWhite Blood Vkxsc7150-66-85 13:11:00* Test Item Value Reference Range Interpretation Comments White Blood Count (test code = 6690-2) 10.16 4.8-10.8 [facility] HospitalRed Blood Quxzy0267-35-61 13:11:00* Test Item Value Reference Range Interpretation Comments Red Blood Count (test code = 789-8) 4.63 3.6-5.1 [facility] HospitalHemoglobin2019-06-25 13:11:00* Test Item Value Reference Range Interpretation Comments Hemoglobin (test code = 13967-7) 13.5 12.0-16.0 [facility] HospitalHematocrit2019-06-25 13:11:00* Test Item Value Reference Range Interpretation Comments Hematocrit (test code = 4544-3) 39.7 34.2-44.1 [facility] HospitalMean Corpuscular Ivzbdn0708-45-05 13:11:00* Test Item Value Reference Range Interpretation Comments Mean Corpuscular Volume (test code = 787-2) 85.7 81-99 [facility] HospitalMean Corpuscular Umdpdpbuwi4973-11-16 13:11:00* Test Item Value Reference Range Interpretation Comments Mean Corpuscular Hemoglobin (test code = 785-6) 29.2 28-32 [facility] HospitalMean Corpuscular Hemoglobin Concent 2019-04-03 13:11:00* Test Item Value Reference Range Interpretation Comments Mean Corpuscular Hemoglobin Concent (test code = 786-4) 34.0 31-35 [facility] HospitalRed Cell Distribution Efuha5642-38-20 13:11:00* Test Item Value Reference Range Interpretation Comments Red Cell Distribution Width (test code = 38359-0) 13.6 11.7 -14.4 [facility] HospitalPlatelet Ckorz5197-06-29 13:11:00* Test Item Value Reference Range Interpretation Comments Platelet Count (test code = 777-3) 291 140-360 [facility] HospitalNeutrophils (%) (Auto)2019-04-03 13:11:00 * Test Item Value Reference Range Interpretation Comments Neutrophils (%) (Auto) (test code = 27608-5) 76.4 38.7-80.0 [facility] HospitalLymphocytes (%) (Auto)2019-04-03 13:11:00 * Test Item Value Reference Range Interpretation Comments Lymphocytes (%) (Auto) (test code = 736-9) 17.8 18.0-39.1 L [facility] HospitalMonocytes (%) (Auto)2019-04-03 13:11:00* Test Item Value Reference Range Interpretation Comments Monocytes (%) (Auto) (test code = 5905-5) 3.3 4.4-11.3 L [facility] HospitalEosinophils (%) (Auto)2019-04-03 13:11:00 * Test Item Value Reference Range Interpretation Comments Eosinophils (%) (Auto) (test code = 713-8) 1.7 0.0-6.0 [facility] HospitalBasophils (%) (Auto)2019-04-03 13:11:00* Test Item Value Reference Range Interpretation Comments Basophils (%) (Auto) (test code = 706-2) 0.5 0.0-1.0 [facility] HospitalIM GRANULOCYTES %2019-04-03 13:11:00* Test Item Value Reference Range Interpretation Comments IM GRANULOCYTES % (test code = IM GRANULOCYTES %) 0.3 0.0- 1.0 [facility] HospitalNeutrophils # (Auto)2019-04-03 13:11:00* Test Item Value Reference Range Interpretation Comments Neutrophils # (Auto) (test code = 751-8) 7.8 2.1-6.9 H [facility] HospitalLymphocytes # (Auto)2019-04-03 13:11:00* Test Item Value Reference Range Interpretation Comments Lymphocytes # (Auto) (test code = 84007-3) 1.8 1.0-3.2 [facility] HospitalMonocytes # (Auto)2019-04-03 13:11:00* Test Item Value Reference Range Interpretation Comments Monocytes # (Auto) (test code = 742-7) 0.3 0.2-0.8 [facility] HospitalEosinophils # (Auto)2019-04-03 13:11:00* Test Item Value Reference Range Interpretation Comments Eosinophils # (Auto) (test code = 711-2) 0.2 0.0-0.4 [facility] HospitalBasophils # (Auto)2019-04-03 13:11:00* Test Item Value Reference Range Interpretation Comments Basophils # (Auto) (test code = 704-7) 0.1 0.0-0.1 [facility] HospitalAbsolute Immature Granulocyte (auto 2019-04-03 13:11:00* Test Item Value Reference Range Interpretation Comments Absolute Immature Granulocyte (auto (laura t code = Absolute Immature Granulocyte (auto) 0.03 0-0.1 [facility] HospitalProthrombin Unqt3984-44-97 13:09:00* Test Item Value Reference Range Interpretation Comments Prothrombin Time (test code = 5902-2) 13.0 11.9-14.5 [facility] HospitalProthromb Time International Ratio 2019-04-03 13:09:00* Test Item Value Reference Range Interpretation Comments Prothromb Time International Ratio (test code = 6301-6) 0.93 Oral Anticoagulant Therapy INR Values:1. Low Intensity Therapy 1.5 - 2.02 . Moderate Intensity Therapy 2.0 - 3.03. High Intensity Therapy(1) 2.5 - 3. 54. High Intensity Therapy(2) 3.0 - 4.05. Panic Value INR > 5.0 [facility] HospitalActivated Partial Thromboplast Time 2019-04-03 13:09:00* Test Item Value Reference Range Interpretation Comments Activated Partial Thromboplast Time (test code = 24646-8) 29.6 23.8-35.5 [facility] HospitalProthrombin Mnrb4171-38-44 13:09:00* Test Item Value Reference Range Interpretation Comments Prothrombin Time (test code = 5902-2) 13.0 11.9-14.5 [facility] HospitalProthromb Time International Ratio 2019-04-03 13:09:00* Test Item Value Reference Range Interpretation Comments Prothromb Time International Ratio (test code = 6301-6) 0.93 Oral Anticoagulant Therapy INR Values:1. Low Intensity Therapy 1.5 - 2.02 . Moderate Intensity Therapy 2.0 - 3.03. High Intensity Therapy(1) 2.5 - 3. 54. High Intensity Therapy(2) 3.0 - 4.05. Panic Value INR > 5.0 [facility] HospitalActivated Partial Thromboplast Time 2019-04-03 13:09:00* Test Item Value Reference Range Interpretation Comments Activated Partial Thromboplast Time (test code = 71455-8) 29.6 23.8-35.5 [facility] HospitalProthrombin Anzv5999-32-21 13:09:00* Test Item Value Reference Range Interpretation Comments Prothrombin Time (test code = 5902-2) 13.0 11.9-14.5 [facility] HospitalProthromb Time International Ratio 2019-04-03 13:09:00* Test Item Value Reference Range Interpretation Comments Prothromb Time International Ratio (test code = 6301-6) 0.93 Oral Anticoagulant Therapy INR Values:1. Low Intensity Therapy 1.5 - 2.02 . Moderate Intensity Therapy 2.0 - 3.03. High Intensity Therapy(1) 2.5 - 3. 54. High Intensity Therapy(2) 3.0 - 4.05. Panic Value INR > 5.0 [facility] HospitalActivated Partial Thromboplast Time 2019-04-03 13:09:00* Test Item Value Reference Range Interpretation Comments Activated Partial Thromboplast Time (test code = 92988-4) 29.6 23.8-35.5 [facility] HospitalProthrombin Vwcc7041-74-28 13:09:00* Test Item Value Reference Range Interpretation Comments Prothrombin Time (test code = 5902-2) 13.0 11.9-14.5 [facility] HospitalProthromb Time International Ratio 2019-04-03 13:09:00* Test Item Value Reference Range Interpretation Comments Prothromb Time International Ratio (test code = 6301-6) 0.93 Oral Anticoagulant Therapy INR Values:1. Low Intensity Therapy 1.5 - 2.02 . Moderate Intensity Therapy 2.0 - 3.03. High Intensity Therapy(1) 2.5 - 3. 54. High Intensity Therapy(2) 3.0 - 4.05. Panic Value INR > 5.0 [facility] HospitalActivated Partial Thromboplast Time 2019-04-03 13:09:00* Test Item Value Reference Range Interpretation Comments Activated Partial Thromboplast Time (test code = 78922-4) 29.6 23.8-35.5 [facility] HospitalCarbon Dioxide Waspi6980-69-40 13:07:00* Test Item Value Reference Range Interpretation Comments Carbon Dioxide Level (test code = 2028-9) 28 22-29 [facility] HospitalBlood Urea Bqvriida8799-08-30 13:07:00* Test Item Value Reference Range Interpretation Comments Blood Urea Nitrogen (test code = 3094-0) 10 7-26 [facility] HospitalCreatinine2019-06-25 13:07:00* Test Item Value Reference Range Interpretation Comments Creatinine (test code = 2160-0) 0.84 0.57-1.11 [facility] HospitalBUN/Creatinine Dgnym2450-96-28 13:07:00* Test Item Value Reference Range Interpretation Comments BUN/Creatinine Ratio (test code = 3097-3) 12 -25 [facility] HospitalEstimat Glomerular Filtration Rate 2019-04-03 13:07:00* Test Item Value Reference Range Interpretation Comments Estimat Glomerular Filtration Rate (test code = 713721843) > 60 >60 Ranges were taken from the National Kidney Disease Education Program and the [facility] Foundation literature.Reference ranges:60 or greater: Eubjlo28-08 ( for 3 consecutive months): Chronic kidney disease 15 or less: Kidney failureCHI El Campo Memorial HospitalGlucose Wtijm9475-14-80 13:07:00* Test Item Value Reference Range Interpretation Comments Glucose Level (test code = WJC1447) 296 74-118 H [facility] HospitalCalcium Cgolf3451-19-04 13:07:00* Test Item Value Reference Range Interpretation Comments Calcium Level (test code = 72763-4) 9.2 8.4-10.2 [facility] HospitalMagnesium Ncgjh9835-72-71 13:07:00* Test Item Value Reference Range Interpretation Comments Magnesium Level (test code = 24006-3) 2.0 1.3-2.1 [facility] HospitalTotal Mtzddxxzo3084-68-21 13:07:00* Test Item Value Reference Range Interpretation Comments Total Bilirubin (test code = 1975-2) 0.3 0.2-1.2 [facility] HospitalAspartate Amino Transf (AST/SGOT) 2019-04-03 13:07:00* Test Item Value Reference Range Interpretation Comments Aspartate Amino Transf (AST/SGOT) (test code = Aspartate Amino Transf (AST/SGOT)) 15 5-34 [facility] HospitalAlanine Aminotransferase (ALT/SGPT) 2019-04-03 13:07:00* Test Item Value Reference Range Interpretation Comments Alanine Aminotransferase (ALT/SGPT) (test code = 1742-6) 26 0-55 [facility] HospitalTotal Unnhhta6676-10-71 13:07:00* Test Item Value Reference Range Interpretation Comments Total Protein (test code = 2885-2) 7.3 6.5-8.1 [facility] HospitalAlbumin2019-06-25 13:07:00* Test Item Value Reference Range Interpretation Comments Albumin (test code = 1751-7) 3.6 3.5-5.0 [facility] HospitalGlobulin2019-06-25 13:07:00* Test Item Value Reference Range Interpretation Comments Globulin (test code = 07758-0) 3.7 2.3-3.5 H [facility] HospitalAlbumin/Globulin Gdznw4692-82-64 13:07:00 * Test Item Value Reference Range Interpretation Comments Albumin/Globulin Ratio (test code = 1759-0) 1.0 0.8-2.0 [facility] HospitalAlkaline Cxlcybqbrqk8786-39-37 13:07:00* Test Item Value Reference Range Interpretation Comments Alkaline Phosphatase (test code = 6768-6) 152 40-150 H [facility] HospitalCreatine Telwpk7752-44-29 13:07:00* Test Item Value Reference Range Interpretation Comments Creatine Kinase (test code = 2157-6) 60 29-168 [facility] HospitalAmylase Yyock5737-47-25 13:07:00* Test Item Value Reference Range Interpretation Comments Amylase Level (test code = 1798-8) 45 25-125 [facility] HospitalLipase2019-06-25 13:07:00* Test Item Value Reference Range Interpretation Comments Lipase (test code = 3040-3) 9 -78 [facility] HospitalMagnesium Uwwde8768-79-50 13:07:00* Test Item Value Reference Range Interpretation Comments Magnesium Level (test code = 91413-2) 2.0 1.3-2.1 [facility] HospitalAmylase Figkr9762-35-78 13:07:00* Test Item Value Reference Range Interpretation Comments Amylase Level (test code = 1798-8) 45 25-125 [facility] HospitalLipase2019-06-25 13:07:00* Test Item Value Reference Range Interpretation Comments Lipase (test code = 3040-3) 9 8-78 [facility] HospitalMagnesium Kzxek9810-96-97 13:07:00* Test Item Value Reference Range Interpretation Comments Magnesium Level (test code = 82601-5) 2.0 1.3-2.1 [facility] HospitalAmylase Umqas1293-66-85 13:07:00* Test Item Value Reference Range Interpretation Comments Amylase Level (test code = 1798-8) 45 - [facility] HospitalLipase2019-06-25 13:07:00* Test Item Value Reference Range Interpretation Comments Lipase (test code = 3040-3) [facility] HospitalMagnesium Xdcgc6422-56-98 13:07:00* Test Item Value Reference Range Interpretation Comments Magnesium Level (test code = 13625-5) 2.0 1.3-2.1 [facility] HospitalAmylase Crrry1259-91-94 13:07:00* Test Item Value Reference Range Interpretation Comments Amylase Level (test code = 1798-8) 45 [facility] HospitalLipase2019-06-25 13:07:00* Test Item Value Reference Range Interpretation Comments Lipase (test code = 3040-3) [facility] HospitalCHEST SINGLE (PORTABLE)2019-04-03 12:40:00 [place] [address] Patient Name: LEIA MUELLER MR #: [id number] : 1955 Age/Sex: 63/F Req #: [id number] Adm Physician: Ordered by: AURELIO GAMBLE MD Report #: [id number] Location: ER Room/Bed: Procedure: [id number] DX/CHES T SINGLE (PORTABLE) Exam Date: Exam Time: REPORT STATUS: Signed EXAM: CHEST SINGLE (PORTABLE), AP Portable DATE: 04/03/2019 Time stamp on exam: 11:25 AM INDIC ATION: Abdominal pain COMPARISON: None FINDINGS: LINES/TUBES: None LUNGS: No consolidations or edema. Linear scarring in the left costophrenic a ngle. PLEURA: No effusions or pneumothorax. HEART AND MEDIASTINUM: No rmal size and contour. BONES AND SOFT TISSUES: No acute findings. IMPR ESSION: No acute thoracic abnormality. Signed by: Dr. Mele delgadillo DO on 04/03/2019 12:42 PM Dictated By: MELE YANES DO Electronical ly Signed By: MELE YANES DO on 04/03/19 1242 Transcribed By: CEE on 03/11 02/25 1242 COPY TO: AURELIO GAMBLE MD Urine PUX4054-20-62 16:21:00 * Test Item Value Reference Range Interpretation Comments Urine WBC (test code = 5821-4) 0-5 0-5 [facility] HospitalUrine CJI3457-32-86 16:21:00* Test Item Value Reference Range Interpretation Comments Urine RBC (test code = 34442-2) NONE 0-5 [facility] HospitalUrine Jemnaybm7687-82-26 16:21:00* Test Item Value Reference Range Interpretation Comments Urine Bacteria (test code = 79472-9) MANY NONE H [facility] HospitalUrine Epithelial Dqlgp3337-93-62 16:21:00 * Test Item Value Reference Range Interpretation Comments Urine Epithelial Cells (test code = 28450-7) FEW NONE [facility] Nnxbpht2997-22-74 16:12:00* Test Item Value Reference Range Interpretation Comments Bedside Glucose (test code = 27146-3) 338 70-120 H Meter ID: [id number] Park Regional Medical Centerside Glucose 2019-01-17 16:12:00* Test Item Value Reference Range Interpretation Comments Bedside Glucose (test code = 77407-5) 338 70-120 H Meter ID: [id number] Methodist Willowbrook HospitalUrine Vvanv9250-88-90 16:09:00* Test Item Value Reference Range Interpretation Comments Urine Color (test code = 5778-6) YELLOW YELLOW [facility] HospitalUrine Nidxvck2703-00-38 16:09:00* Test Item Value Reference Range Interpretation Comments Urine Clarity (test code = 08532-1) SL CLOUDY CLEAR [facility] HospitalUrine Specific Usqpxfl5137-22-71 16:09:00 * Test Item Value Reference Range Interpretation Comments Urine Specific [place] (test code = 5811-5) 1.015 1.010-1.02 5 [facility] HospitalUrine wY7594-72-34 16:09:00* Test Item Value Reference Range Interpretation Comments Urine pH (test code = 20045-6) 6 5-7 [facility] HospitalUrine Leukocyte Jyztfwli3857-43-81 16:09:00* Test Item Value Reference Range Interpretation Comments Urine Leukocyte Esterase (test code = 5799-2) NEGATIVE NEGATIVE [facility] HospitalUrine Kmkciqv4566-08-81 16:09:00* Test Item Value Reference Range Interpretation Comments Urine Nitrite (test code = 44406-5) POSITIVE NEGATIVE H [facility] HospitalUrine Tfvblmg2387-37-91 16:09:00* Test Item Value Reference Range Interpretation Comments Urine Protein (test code = 5804-0) NEGATIVE NEGATIVE [facility] HospitalU[facility] Glucose (UA)2019-01-17 16:09:00* Test Item Value Reference Range Interpretation Comments Urine Glucose (UA) (test code = 2349-9) 3+ NEGATIVE H [facility] Kyhveac4780-70-78 16:09:00* Test Item Value Reference Range Interpretation Comments Urine Ketones (test code = 36370-6) NEGATIVE NEGATIVE [facility] Bwnagxylcexf4869-57-61 16:09:00* Test Item Value Reference Range Interpretation Comments Urine Urobilinogen (test code = 37473-2) 0.2 0.2-1 [facility] HospitalUrine Sgmsddiem2400-98-59 16:09:00* Test Item Value Reference Range Interpretation Comments Urine Bilirubin (test code = 1978-6) NEGATIVE NEGATIVE [facility] Ubbzp3719-79-00 16:09:00* Test Item Value Reference Range Interpretation Comments Urine Blood (test code = 77410-8) NEGATIVE NEGATIVE [facility] HospitalB-Type Natriuretic Bckulbj3490-83-70 14:58:00* Test Item Value Reference Range Interpretation Comments B-Type Natriuretic Peptide (test code = 63327-9) 21.8 0-100 [facility] HospitalB[facility] Natri[facility]tic Cjfyiok2784-91-82 14:58:00* Test Item Value Reference Range Interpretation Comments B-Type Natriuretic Peptide (test code = 64305-2) 21.8 0-100 [facility] HospitalB[facility] Natri[facility]tic Aesbsol8943-18-56 14:58:00* Test Item Value Reference Range Interpretation Comments B-Type Natriuretic Peptide (test code = 89507-6) 21.8 0-100 [facility] HospitalCreatine Kinase SC5456-19-63 14:53:00* Test Item Value Reference Range Interpretation Comments Creatine Kinase MB (test code = 68525-2) 0.50 0-5.0 [facility] HospitalTroponin D3222-32-55 14:53:00* Test Item Value Reference Range Interpretation Comments Troponin I (test code = KCM7599) 0.010 0-0.300 [facility] Odnnr5279-74-52 14:47:00* Test Item Value Reference Range Interpretation Comments Sodium Level (test code = 2951-2) 135 136-145 L [facility] HospitalPotassium Xcyle8273-47-63 14:47:00* Test Item Value Reference Range Interpretation Comments Potassium Level (test code = 2823-3) 3.9 3.5-5.1 [facility] HospitalChloride Gmmsx2845-93-46 14:47:00* Test Item Value Reference Range Interpretation Comments Chloride Level (test code = 2075-0) 99 98-107 [facility] HospitalCarbon Dioxide Dbwsq1363-15-23 14:47:00* Test Item Value Reference Range Interpretation Comments Carbon Dioxide Level (test code = 2028-9) 29 22-29 [facility] HospitalAnion Knl8995-10-47 14:47:00* Test Item Value Reference Range Interpretation Comments Anion Gap (test code = 32605-2) 10.9 8-16 [facility] HospitalBlood Urea Ugcdpmrc8459-23-58 14:47:00* Test Item Value Reference Range Interpretation Comments Blood Urea Nitrogen (test code = 3094-0) 17 7-26 [facility] HospitalCreatinine2019-04-10 14:47:00* Test Item Value Reference Range Interpretation Comments Creatinine (test code = 2160-0) 1.08 0.57-1.11 [facility] HospitalBUN/Creatinine Dhdvt1852-54-87 14:47:00* Test Item Value Reference Range Interpretation Comments BUN/Creatinine Ratio (test code = 3097-3) 16 6-25 [facility] HospitalEstimat Glomerular Filtration Rate 2019-01-17 14:47:00* Test Item Value Reference Range Interpretation Comments Estimat Glomerular Filtration Rate (test code = 704959812) 51 >60 L Ranges were taken from the National Kidney Disease Education Program and the [place] community health[facility] Kidney Foundation literature.Reference ranges:60 or greater: Xxwsis15-78 ( for 3 consecutive months): Chronic kidney disease 15 or less: Kidney failureHouston [facility] Willowbrook HospitalGlucose Fgnwo6277-50-55 14:47:00* Test Item Value Reference Range Interpretation Comments Glucose Level (test code = DOB5883) 349 74-118 H [facility] HospitalCalcium Ospsn5959-77-86 14:47:00* Test Item Value Reference Range Interpretation Comments Calcium Level (test code = 04235-6) 9.4 8.4-10.2 [facility] HospitalMagnesium Lrzus3134-62-92 14:47:00* Test Item Value Reference Range Interpretation Comments Magnesium Level (test code = 76382-7) 1.8 1.3-2.1 [facility] HospitalTotal Zbhymqxvi2248-72-59 14:47:00* Test Item Value Reference Range Interpretation Comments Total Bilirubin (test code = 1975-2) 0.3 0.2-1.2 [facility] HospitalAspartate Amino Transf (AST/SGOT) 2019-01-17 14:47:00* Test Item Value Reference Range Interpretation Comments Aspartate Amino Transf (AST/SGOT) (test code = Aspartate Amino Transf (AST/SGOT)) 15 5-34 [facility] HospitalAlanine Aminotransferase (ALT/SGPT) 2019-01-17 14:47:00* Test Item Value Reference Range Interpretation Comments Alanine Aminotransferase (ALT/SGPT) (test code = 1742-6) 18 0-55 [facility] HospitalTotal Jajtrlj8477-25-54 14:47:00* Test Item Value Reference Range Interpretation Comments Total Protein (test code = 2885-2) 6.6 6.5-8.1 [facility] HospitalAlbumin2019-04-10 14:47:00* Test Item Value Reference Range Interpretation Comments Albumin (test code = 1751-7) 3.1 3.5-5.0 L [facility] HospitalGlobulin2019-04-10 14:47:00* Test Item Value Reference Range Interpretation Comments Globulin (test code = 14097-3) 3.5 2.3-3.5 [facility] HospitalAlbumin/Globulin Ihpjz2142-04-58 14:47:00 * Test Item Value Reference Range Interpretation Comments Albumin/Globulin Ratio (test code = 1759-0) 0.9 0.8-2.0 [facility] HospitalAlkaline Ykqzqtcyddn5086-94-07 14:47:00* Test Item Value Reference Range Interpretation Comments Alkaline Phosphatase (test code = 6768-6) 124 40-150 [facility] HospitalCreatine Fdehmg5989-02-67 14:47:00* Test Item Value Reference Range Interpretation Comments Creatine Kinase (test code = 2157-6) 36 29-168 [facility] HospitalProthrombin Puwp4747-57-53 14:45:00* Test Item Value Reference Range Interpretation Comments Prothrombin Time (test code = 5902-2) 12.7 11.9-14.5 [facility] HospitalProthromb Time International Ratio 2019-01-17 14:45:00* Test Item Value Reference Range Interpretation Comments Prothromb Time International Ratio (test code = 6301-6) 0.91 Oral Anticoagulant Therapy INR Values:1. Low Intensity Therapy 1.5 - 2.02 . Moderate Intensity Therapy 2.0 - 3.03. High Intensity Therapy(1) 2.5 - 3. 54. High Intensity Therapy(2) 3.0 - 4.05. Panic Value INR > 5.0 [facility] HospitalActivated Partial Thromboplast Time 2019-01-17 14:45:00* Test Item Value Reference Range Interpretation Comments Activated Partial Thromboplast Time (test code = 56689-1) 27.1 23.8-35.5 [facility] HospitalCHEST 2 SGQMZ6396-55-60 14:42:00 [facility] [address] [address] Patient Name: LEIA MUELLER MR #: [id number] : 1955 Age/Sex: 63/F Req #: [id number] Adm Physician: Ordered by: ARNAUD CLEMENT [employer] FACILITIES INSPECTOR Report #: [id number] Location: ER Room/Bed: Procedure: [id number] DX/CH EST 2 VIEWS Exam Date: Exam Time: REPORT STATUS: Signed EXAMINATION: PA and lat eral views of the chest. COMPARISON: 12/18/2018 CLINICAL HISTORY: Chest pain DISCUSSION: Lungs are well-inflated. Linear opacity in the lingula compatible with subsegmental atelectasis. No airspace consolidati on, pleural effusion, or pneumothorax. Tortuous thoracic aorta. Otherwise norm al cardiomediastinal contour. No acute osseous abnormalities. Right upper quad rant surgical clips likely related to prior cholecystectomy. IMPRESSION: Subsegmental atelectasis in the lingula. Otherwise no acute cardiopulmonary abnormality. Signed by: Dr. Hermelinda Armenta M.D. on 01/17/2019 2 :44 PM Dictated By: HERMELINDA ARMENTA MD 43 Transcribed By: CEE on 01/17/194 COPY TO : ARNAUD CLEMENT NP Influenza Virus Types A,B Pvdvleb8168-40-18 14:38:00* Test Item Value Reference Range Interpretation Comments Influenza Virus Types A,B Antigen (test code = 06096-6) NEGATIVE NEGATIVE [facility] HospitalInfluenza Virus Types A,B Antigen 2019-01-17 14:38:00* Test Item Value Reference Range Interpretation Comments Influenza Virus Types A,B Antigen (test code = 83380-2) NEGATIVE NEGATIVE [facility] HospitalInfluenza Virus Types A,B Antigen 2019-01-17 14:38:00* Test Item Value Reference Range Interpretation Comments Influenza Virus Types A,B Antigen (test code = 22658-9) NEGATIVE NEGATIVE [facility] HospitalWhite Blood Gyslu6908-43-38 14:31:00* Test Item Value Reference Range Interpretation Comments White Blood Count (test code = 6690-2) 11.33 4.8-10.8 H [facility] HospitalRed Blood Mqkhw4022-99-97 14:31:00* Test Item Value Reference Range Interpretation Comments Red Blood Count (test code = 789-8) 4.37 3.6-5.1 [facility] HospitalHemoglobin2019-04-10 14:31:00* Test Item Value Reference Range Interpretation Comments Hemoglobin (test code = 71890-5) 12.9 12.0-16.0 [facility] HospitalHematocrit2019-04-10 14:31:00* Test Item Value Reference Range Interpretation Comments Hematocrit (test code = 4544-3) 38.3 34.2-44.1 [facility] HospitalMean Corpuscular Yejbwx5246-19-83 14:31:00* Test Item Value Reference Range Interpretation Comments Mean Corpuscular Volume (test code = 787-2) 87.6 81-99 [facility] HospitalMean Corpuscular Cmfqjxutbo0618-32-43 14:31:00* Test Item Value Reference Range Interpretation Comments Mean Corpuscular Hemoglobin (test code = 785-6) 29.5 28-32 [facility] HospitalMean Corpuscular Hemoglobin Concent 2019-01-17 14:31:00* Test Item Value Reference Range Interpretation Comments Mean Corpuscular Hemoglobin Concent (test code = 786-4) 33.7 31-35 [facility] HospitalRed Cell Distribution Lrpln1416-47-43 14:31:00* Test Item Value Reference Range Interpretation Comments Red Cell Distribution Width (test code = 94236-8) 13.3 11.7 -14.4 [facility] HospitalPlatelet Pbrig4969-15-55 14:31:00* Test Item Value Reference Range Interpretation Comments Platelet Count (test code = 777-3) 274 140-360 [facility] HospitalNeutrophils (%) (Auto)2019-01-17 14:31:00 * Test Item Value Reference Range Interpretation Comments Neutrophils (%) (Auto) (test code = 77578-7) 78.4 38.7-80.0 [facility] HospitalLymphocytes (%) (Auto)2019-01-17 14:31:00 * Test Item Value Reference Range Interpretation Comments Lymphocytes (%) (Auto) (test code = 736-9) 15.7 18.0-39.1 L [facility] HospitalMonocytes (%) (Auto)2019-01-17 14:31:00* Test Item Value Reference Range Interpretation Comments Monocytes (%) (Auto) (test code = 5905-5) 4.1 4.4-11.3 L [facility] HospitalEosinophils (%) (Auto)2019-01-17 14:31:00 * Test Item Value Reference Range Interpretation Comments Eosinophils (%) (Auto) (test code = 713-8) 1.0 0.0-6.0 [facility] HospitalBasophils (%) (Auto)2019-01-17 14:31:00* Test Item Value Reference Range Interpretation Comments Basophils (%) (Auto) (test code = 706-2) 0.4 0.0-1.0 [facility] HospitalIM GRANULOCYTES %2019-01-17 14:31:00* Test Item Value Reference Range Interpretation Comments IM GRANULOCYTES % (test code = IM GRANULOCYTES %) 0.4 0.0- 1.0 [facility] HospitalNeutrophils # (Auto)2019-01-17 14:31:00* Test Item Value Reference Range Interpretation Comments Neutrophils # (Auto) (test code = 751-8) 8.9 2.1-6.9 H [facility] HospitalLymphocytes # (Auto)2019-01-17 14:31:00* Test Item Value Reference Range Interpretation Comments Lymphocytes # (Auto) (test code = 30257-2) 1.8 1.0-3.2 [facility] HospitalMonocytes # (Auto)2019-01-17 14:31:00* Test Item Value Reference Range Interpretation Comments Monocytes # (Auto) (test code = 742-7) 0.5 0.2-0.8 [facility] HospitalEosinophils # (Auto)2019-01-17 14:31:00* Test Item Value Reference Range Interpretation Comments Eosinophils # (Auto) (test code = 711-2) 0.1 0.0-0.4 [facility] HospitalBasophils # (Auto)2019-01-17 14:31:00* Test Item Value Reference Range Interpretation Comments Basophils # (Auto) (test code = 704-7) 0.1 0.0-0.1 [facility] HospitalAbsolute Immature Granulocyte (auto 2019-01-17 14:31:00* Test Item Value Reference Range Interpretation Comments Absolute Immature Granulocyte (auto (laura t code = Absolute Immature Granulocyte (auto) 0.04 0-0.1 [facility] HospitalUrine Fcnxs5405-24-22 16:22:00* Test Item Value Reference Range Interpretation Comments Urine Color (test code = 5778-6) YELLOW YELLOW [facility] HospitalUrine Kegkjgo6835-55-28 16:22:00* Test Item Value Reference Range Interpretation Comments Urine Clarity (test code = 81511-6) HAZY CLEAR [facility] HospitalUrine Specific Fykfnqm6036-65-45 16:22:00 * Test Item Value Reference Range Interpretation Comments Urine Specific [place] (test code = 5811-5) 1.005 1.010-1.02 5 L [facility] HospitalUrine tA0920-93-15 16:22:00* Test Item Value Reference Range Interpretation Comments Urine pH (test code = 21682-6) 6 5-7 [facility] Leukocyte Lpxrnjmw1288-18-61 16:22:00* Test Item Value Reference Range Interpretation Comments Urine Leukocyte Esterase (test code = 5799-2) TRACE NEGATIVE H [facility] Kfrrtlb1273-53-83 16:22:00* Test Item Value Reference Range Interpretation Comments Urine Nitrite (test code = 90910-1) NEGATIVE NEGATIVE [facility] Vqldnsr1264-53-58 16:22:00* Test Item Value Reference Range Interpretation Comments Urine Protein (test code = 5804-0) NEGATIVE NEGATIVE [facility] Glucose (UA)2018-12-18 16:22:00* Test Item Value Reference Range Interpretation Comments Urine Glucose (UA) (test code = 2349-9) 3+ NEGATIVE H [facility] Ksgzdps1930-90-19 16:22:00* Test Item Value Reference Range Interpretation Comments Urine Ketones (test code = 09484-3) NEGATIVE NEGATIVE [facility] Nlyyzcdisasy7791-30-56 16:22:00* Test Item Value Reference Range Interpretation Comments Urine Urobilinogen (test code = 79348-8) 0.2 0.2-1 [facility] HospitalUrine Jilgoeuwj4617-18-84 16:22:00* Test Item Value Reference Range Interpretation Comments Urine Bilirubin (test code = 1978-6) NEGATIVE NEGATIVE [facility] Kdyyb7835-84-23 16:22:00* Test Item Value Reference Range Interpretation Comments Urine Blood (test code = 66649-9) NEGATIVE NEGATIVE [facility] HospitalUrine ZOB7861-92-78 16:22:00* Test Item Value Reference Range Interpretation Comments Urine WBC (test code = 5821-4) 11-20 0-5 H [facility] HospitalUrine TJK2777-51-07 16:22:00* Test Item Value Reference Range Interpretation Comments Urine RBC (test code = 13857-7) NONE 0-5 [facility] HospitalUrine Tfhuhrey4372-73-79 16:22:00* Test Item Value Reference Range Interpretation Comments Urine Bacteria (test code = 22238-9) MANY NONE H [facility] HospitalUrine Epithelial Btnyu6598-19-12 16:22:00 * Test Item Value Reference Range Interpretation Comments Urine Epithelial Cells (test code = 70346-0) MODERATE NONE [facility] HospitalCHEST SINGLE (PORTABLE)2018-12-18 16:21:00 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 Left-s ided chest pain near the breasts. COMPARISON: None FINDINGS: AP view TUBES and LINES: None. LUNGS: Lungs are well inflated. Jamal ateral peribronchial cuffing. There is no evidence of pneumonia or pulmonary e lupe. PLEURA: No pleural effusion or pneumothorax. HEART AND MEDIASTI NUM: The cardiomediastinal silhouette is unremarkable. BONES AND SOFT TISSUES: No acute osseous lesion. Soft tissues are unremarkable. UPPER ABDOMEN: No free air under the diaphragm. IMPRESSION: 1. Suboptimal exam secondary to lung inspiration and mildly breathing motion artifact. 2. Bilateral peribronchial cuffing, which could represent viral etiology or glen ctive airway disease. Signed by: Dr. Gelacio Cota M.D. on 12/18/2018 4:22 PM Dictated By: GELACIO COTA MD 1622 COPY TO: LINUS SOFIA NP B-Type Natriuretic Cnfkwfh0656-58-13 16:18:00* Test Item Value Reference Range Interpretation Comments B-Type Natriuretic Peptide (test code = 71530-4) 31.0 0-100 [facility] HospitalCreatine Kinase QR0852-03-36 16:18:00* Test Item Value Reference Range Interpretation Comments Creatine Kinase MB (test code = 18422-3) 0.40 0-5.0 [facility] HospitalTroponin T4847-46-59 16:18:00* Test Item Value Reference Range Interpretation Comments Troponin I (test code = WII1372) < 0.001 0-0.300 [facility] Campusodium Crevt6736-73-71 16:12:00* Test Item Value Reference Range Interpretation Comments Sodium Level (test code = 2951-2) 131 136-145 L [facility] HospitalPotassium Yeume6837-86-19 16:12:00* Test Item Value Reference Range Interpretation Comments Potassium Level (test code = 2823-3) 4.1 3.5-5.1 [facility] HospitalChloride Ybcit9541-38-23 16:12:00* Test Item Value Reference Range Interpretation Comments Chloride Level (test code = 2075-0) 97 98-107 L [facility] HospitalCarbon Dioxide Byorq5063-13-15 16:12:00* Test Item Value Reference Range Interpretation Comments Carbon Dioxide Level (test code = 2028-9) 26 22-29 [facility] HospitalAnion Foq6396-64-28 16:12:00* Test Item Value Reference Range Interpretation Comments Anion Gap (test code = 80273-1) 12.1 8-16 [facility] HospitalBlood Urea Gcwfjxyz7649-51-61 16:12:00* Test Item Value Reference Range Interpretation Comments Blood Urea Nitrogen (test code = 3094-0) 14 7-26 [facility] HospitalCreatinine2019-03-11 16:12:00* Test Item Value Reference Range Interpretation Comments Creatinine (test code = 2160-0) 0.87 0.57-1.11 [facility] HospitalBUN/Creatinine Brbvq7879-39-51 16:12:00* Test Item Value Reference Range Interpretation Comments BUN/Creatinine Ratio (test code = 3097-3) 16 6- [facility] HospitalEstimat Glomerular Filtration Rate 2018-12-18 16:12:00* Test Item Value Reference Range Interpretation Comments Estimat Glomerular Filtration Rate (test code = 082420708) > 60 >60 Ranges were taken from the National Kidney Disease Education Program and the [place] community healthal Kidney Foundation literature.Reference ranges:60 or greater: Ujkqez36-52 ( for 3 consecutive months): Chronic kidney disease 15 or less: Kidney failureHouston Methodist Willowbrook HospitalGlucose Ywfjd9593-79-96 16:12:00* Test Item Value Reference Range Interpretation Comments Glucose Level (test code = CCR6372) 477 74-118 HH Results repeated and called to REBEKA HERCULES at 1610 on 12/18/18 by Kwadwo More. Read back and verified.[facility] HospitalCalcium Level 2018-12-18 16:12:00* Test Item Value Reference Range Interpretation Comments Calcium Level (test code = 80182-3) 9.0 8.4-10.2 [facility] HospitalTotal Rlikhupso3640-67-12 16:12:00* Test Item Value Reference Range Interpretation Comments Total Bilirubin (test code = 1975-2) 0.3 0.2-1.2 [facility] HospitalAspartate Amino Transf (AST/SGOT) 2018-12-18 16:12:00* Test Item Value Reference Range Interpretation Comments Aspartate Amino Transf (AST/SGOT) (test code = Aspartate Amino Transf (AST/SGOT)) 17 5-34 [facility] HospitalAlanine Aminotransferase (ALT/SGPT) 2018-12-18 16:12:00* Test Item Value Reference Range Interpretation Comments Alanine Aminotransferase (ALT/SGPT) (test code = 1742-6) 40 0-55 [facility] HospitalTotal Fsvhztl5621-75-75 16:12:00* Test Item Value Reference Range Interpretation Comments Total Protein (test code = 2885-2) 6.7 6.5-8.1 [facility] HospitalAlbumin2019-03-11 16:12:00* Test Item Value Reference Range Interpretation Comments Albumin (test code = 1751-7) 3.3 3.5-5.0 L [facility] HospitalGlobulin2019-03-11 16:12:00* Test Item Value Reference Range Interpretation Comments Globulin (test code = 31684-4) 3.4 2.3-3.5 [facility] HospitalAlbumin/Globulin Vcvzv3898-93-10 16:12:00 * Test Item Value Reference Range Interpretation Comments Albumin/Globulin Ratio (test code = 1759-0) 1.0 0.8-2.0 [facility] HospitalAlkaline Yopkglmtgsp1072-88-94 16:12:00* Test Item Value Reference Range Interpretation Comments Alkaline Phosphatase (test code = 6768-6) 160 40-150 H [facility] HospitalCreatine Osdvnx9265-95-33 16:12:00* Test Item Value Reference Range Interpretation Comments Creatine Kinase (test code = 2157-6) 35 29-168 [facility] HospitalProthrombin Eqhd6042-44-84 15:59:00* Test Item Value Reference Range Interpretation Comments Prothrombin Time (test code = 5902-2) 12.7 11.9-14.5 [facility] HospitalProthromb Time International Ratio 2018-12-18 15:59:00* Test Item Value Reference Range Interpretation Comments Prothromb Time International Ratio (test code = 6301-6) 0.91 Oral Anticoagulant Therapy INR Values:1. Low Intensity Therapy 1.5 - 2.02 . Moderate Intensity Therapy 2.0 - 3.03. High Intensity Therapy(1) 2.5 - 3. 54. High Intensity Therapy(2) 3.0 - 4.05. Panic Value INR > 5.0 [facility] HospitalActivated Partial Thromboplast Time 2018-12-18 15:59:00* Test Item Value Reference Range Interpretation Comments Activated Partial Thromboplast Time (test code = 10851-4) 28.1 23.8-35.5 [facility] HospitalWhite Blood Ozkfe7856-08-52 15:53:00* Test Item Value Reference Range Interpretation Comments White Blood Count (test code = 6690-2) 7.47 4.8-10.8 [facility] HospitalRed Blood Qzxjq9921-14-45 15:53:00* Test Item Value Reference Range Interpretation Comments Red Blood Count (test code = 789-8) 4.65 3.6-5.1 [facility] HospitalHemoglobin2019-03-11 15:53:00* Test Item Value Reference Range Interpretation Comments Hemoglobin (test code = 05719-6) 13.6 12.0-16.0 [facility] HospitalHematocrit2019-03-11 15:53:00* Test Item Value Reference Range Interpretation Comments Hematocrit (test code = 4544-3) 41.0 34.2-44.1 [facility] HospitalMean Corpuscular Gsihtq7776-65-40 15:53:00* Test Item Value Reference Range Interpretation Comments Mean Corpuscular Volume (test code = 787-2) 88.2 81-99 [facility] HospitalMean Corpuscular Nsvbujmtnu5065-80-03 15:53:00* Test Item Value Reference Range Interpretation Comments Mean Corpuscular Hemoglobin (test code = 785-6) 29.2 28-32 [facility] HospitalMean Corpuscular Hemoglobin Concent 2018-12-18 15:53:00* Test Item Value Reference Range Interpretation Comments Mean Corpuscular Hemoglobin Concent (test code = 786-4) 33.2 31-35 [facility] HospitalRed Cell Distribution Rryjg3648-40-57 15:53:00* Test Item Value Reference Range Interpretation Comments Red Cell Distribution Width (test code = 64733-9) 12.9 11.7 -14.4 [facility] HospitalPlatelet Gmaxu6669-32-70 15:53:00* Test Item Value Reference Range Interpretation Comments Platelet Count (test code = 777-3) 232 140-360 [facility] HospitalNeutrophils (%) (Auto)2018-12-18 15:53:00 * Test Item Value Reference Range Interpretation Comments Neutrophils (%) (Auto) (test code = 98848-9) 71.2 38.7-80.0 [facility])2018-12-18 15:53:00 * Test Item Value Reference Range Interpretation Comments Lymphocytes (%) (Auto) (test code = 736-9) 19.8 18.0-39.1 [facility] ([facility])2018-12-18 15:53:00* Test Item Value Reference Range Interpretation Comments Monocytes (%) (Auto) (test code = 5905-5) 4.7 4.4-11.3 [facility] ([facility])2018-12-18 15:53:00 * Test Item Value Reference Range Interpretation Comments Eosinophils (%) (Auto) (test code = 713-8) 3.3 0.0-6.0 [facility] ([facility])2018-12-18 15:53:00* Test Item Value Reference Range Interpretation Comments Basophils (%) (Auto) (test code = 706-2) 0.7 0.0-1.0 [facility]IM [facility] %2018-12-18 15:53:00* Test Item Value Reference Range Interpretation Comments IM GRANULOCYTES % (test code = IM GRANULOCYTES %) 0.3 0.0- 1.0 [facility]Neutrophils # (Auto)2018-12-18 15:53:00* Test Item Value Reference Range Interpretation Comments Neutrophils # (Auto) (test code = 751-8) 5.3 2.1-6.9 [facility]Lymph[facility] # (Auto)2018-12-18 15:53:00* Test Item Value Reference Range Interpretation Comments Lymphocytes # (Auto) (test code = 24331-3) 1.5 1.0-3.2 [facility]Mon[facility] # (Auto)2018-12-18 15:53:00* Test Item Value Reference Range Interpretation Comments Monocytes # (Auto) (test code = 742-7) 0.4 0.2-0.8 [facility]Eosinophils # (Auto)2018-12-18 15:53:00* Test Item Value Reference Range Interpretation Comments Eosinophils # (Auto) (test code = 711-2) 0.3 0.0-0.4 [facility] # (Auto)2018-12-18 15:53:00* Test Item Value Reference Range Interpretation Comments Basophils # (Auto) (test code = 704-7) 0.1 0.0-0.1 [facility]Absolute Immature Granulocyte (auto 2018-12-18 15:53:00* Test Item Value Reference Range Interpretation Comments Absolute Immature Granulocyte (auto (laura t code = Absolute Immature Granulocyte (auto) 0.02 0-0.1 [facility]
--- OUTSIDE RECORDS SUMMARY | 2020-06-06 16:51 | XMS REPORT | Continuity of Care Document ---
Author Author [facility] t Organization [facility] Address [address] [place] [address] Phone Unavailable Care Team Providers Care Construction Engineer Name Role Phone BUSTER YOON PCP Brianne PEARSON Attphys Unavailable NAY, A YICHING Attphys Unavailable SWEET, A LAIRD Attphys Unavailable ANGELO, T MISAEL Attphys Unavailable MANEEVESE, V KE Attphys Unavailable TEE, A YICHING Admphys Unavailable Payers Payer Name Policy Type Policy Number Effective Date Expiration Date [employer]ne [employer] Medicare Advantage NA 2017 00:00 :[address] [facility] Blue Medicare Advantage [id number] 2016 00:00:[address] [facility] Problems Condition Name Condition Details Condition Category Status Onset Date Resolution Date Last Treatment Date Treating Clinician Comments Source Chest pain Problem Active [facility] Allergies, Adverse Reactions, Alerts Allergy Name Allergy Type Status Severity Reaction(s) Onset Date Inacti ve Date Treating Clinician Comments Source Tramadol Propensity to adverse reactions Active Mild NAUSEA 2019-04-03 00:00:[address] [facility] Promethazine Allergy to substance Active ANXIETY 2019-04-03 00:00: [address] [facility] Metoclopramide Propensity to adverse reactions Active ANXIETY 2019-04-03 00:00:[address] [facility] Social History Social Habit Start Date Stop Date Quantity Comments Source Sex Assigned At 1955 00:00:00 1955 00:00:[address] [facility] Medications Ordered Medication Name Filled Medication Name Start Date Stop Da te Current Medication? Ordering Clinician Indication Dosage Frequency Signature (SIG) Comments Components Source Ciprofloxacin Hcl (Cipro) 500 Mg TABLET Ciprofloxacin Hcl (C ipro) 500 Mg TABLET 2020-03-01 13:51:00 Yes 500 Every [address] [facility] Cefuroxime Axetil (Cefuroxime) 250 Mg TABLET Cefuroxim e Axetil (Cefuroxime) 250 Mg TABLET 2017-05-21 12:16:00 2019-04-03 00:00:00 No 250 Every [address] [facility] Buspirone Hcl Buspirone Hcl Yes 10 Twice A Day [facility] Desloratadine Desloratadine Yes [address] [facility] Duloxetine Hcl (Cymbalta) 20 Mg CAPCR Duloxetine Hcl (Cymbalta) 20 Mg CAPCR Yes [address] [facility] Famotidine Famotidine Yes 20 Twice A Day [facility] Gabapentin Gabapentin Yes 600 Three Times A Day [facility] Glipizide Glipizide Yes 10 Twice A Day [facility] Insulin Glargine (Lantus 3ML Pen) 100 Units/1 Ml INJ I nsulin Glargine (Lantus 3ML Pen) 100 Units/1 Ml INJ Yes [address] [facility] Insulin Glargine (Lantus 3ML Pen) 100 Units/1 Ml INJ I nsulin Glargine (Lantus 3ML Pen) 100 Units/1 Ml INJ Yes [address] [facility] Losartan Potassium Losartan Potassium Yes [address] [facility] Meloxicam Meloxicam Yes 15 Daily as needed for Pain [facility] Pantoprazole Sodium (Protonix) 40 Mg TABLET. Pantopr azole Sodium (Protonix) 40 Mg TABLET. Yes [address] [facility] Pravastatin Sodium Pravastatin Sodium Yes [address] [facility] Insulin Glargine (Lantus 3ML Pen) 100 Units/1 Ml INJ I nsulin Glargine (Lantus 3ML Pen) 100 Units/1 Ml INJ 2020-02-29 00:00:00 No [address] [facility] Insuln Asp Prt/Insulin Aspart (Novolog M ix 70-30 Flexpen Syrn) 100 Unit/1 Ml INSULN.PEN Insuln Asp Prt/Insulin Aspart (Novolog M ix 70-30 Flexpen Syrn) 100 Unit/1 Ml INSULN.PEN 2020-02-29 00:00:00 No 20 Twi ce A Day [facility] Ondansetron (Ondansetron Odt) 8 Mg TAB.RAPDIS Ondanset wilma (Ondansetron Odt) 8 Mg TAB.RAPDIS 2020-02-29 00:00:00 No 4 E very 6 Hours as needed for Nausea [facility] Atorvastatin Calcium Atorvastatin Calcium 2019-07-16 00:00:00 No 80 Bedtime [facility] Insulin Glargine (Lantus 3ML Pen) 100 Units/1 Ml INJ I nsulin Glargine (Lantus 3ML Pen) 100 Units/1 Ml INJ 2019-07-16 00:00:00 No 40 Before Breakfast [facility] Estradiol Estradiol 2019-04-03 00:00:00 No 1 Daily [facility] Sertraline Hcl (Zoloft) 50 Mg TABLET Sertraline Hcl (Zoloft) 50 Mg TABLET 2019-04-03 00:00:00 No 50 Daily [facility] Fluconazole (Diflucan) 100 Mg TABLET Fluconazole (Diflucan) 100 Mg TABLET 2017-05-21 00:00:00 No 1 Daily [facility] Metformin Hcl Metformin Hcl 2017-05-21 00:00:00 No 850 Twice A Day [facility] Benazepril/Hydrochlorothiazide (Benazepril-Hctz 20-25 Mg Tab) 1 Each TABLET Benazepril/Hydrochlorothiazide (Benazepril-Hctz 20-25 Mg Tab) 1 Each TABLET 2017-01-19 00:00:00 No Daily [facility] Clonazepam (Klonopin) 0.5 Mg TABLET Clonazepam (Klonopin) 0.5 Mg TABLET 2017-01-19 00:00:00 No .5 Twice A Day as neede d for Anxiety [facility] Omeprazole Omeprazole 2017-01-19 00:00:00 No 40 Twi ce A Day [facility] Venlafaxine Hcl Venlafaxine Hcl 2017-01-19 00:00:00 No 37.5 Twice A Day [facility] Vital Signs Vital Name Observation Time Observation Value Comments Source Body Temperature 2020-03-01 12:00:00 98.9 [degF] [facility] BMI (Body Mass Index) 2020-02-28 15:08:00 35.4 kg/m2 [facility] Weight 2020-02-28 07:45:00 200 [lb_av] [facility] Procedures Procedure Date / Time Performed Performing Clinician [facility] e Magnetic resonance imaging of lumbar spine without contrast 2020-03-01 00:00:[address] [facility] CT of abdomen and pelvis without contrast 2020-02-29 00:00:[address] [facility] Computed tomography of abdomen and pelvis with contrast 2018 00:00:[address] [facility] Plan of Care Planned Activity Planned Date Details Comments Source Instructions Urinary Tract Infection - Women [facility] Encounters Start Date/Time End Date/Time Encounter Type Admission Type [facility] Care Department Encounter ID Source 2020-02-28 08:45:00 2020-03-01 15:09:00 Discharged Inpatient (obs) 1 MAYANK TEE [facility] [id number] [facility] 2019-12-11 17:18:00 2019-12-11 17:59:00 Departed Emergency Room [facility] [id number] [facility] 2019-12-11 14:34:00 2019-12-11 15:49:00 Departed Emergency Room [facility] [id number] [facility] 2019-07-16 11:45:00 2019-07-16 15:50:00 Departed Emergency Room 1 PANFILO CASILLAS [facility] [id number] BETY Danielle [facility] 2019-04-03 10:36:00 2019-04-03 17:36:00 Departed Emergency Room 1 AURELIO GAMBLE [facility] [id number] [facility] 2019-01-17 13:03:00 2019-01-17 17:30:00 Departed Emergency Room 1 MISAEL STEPHENS [facility] [id number] [facility] 2018-12-18 14:53:00 2018-12-18 17:55:00 Departed Emergency Room 1 KE TURPIN [facility] [id number] [facility] Results Test Description Test Time Test Comments Results Result Comments Source CT ABDOMEN/PELVIS W 2020-06-06 15:57:00 [place] [address] Patient Name: LEIA MUELLER I MR #: [id number] : 1955 Age/Sex: 65/F Req #: [id number] Adm Physician: Ordered by: PANFILO PEARSON DO Report #: [id number] Location: ER Room/Bed: Procedure: [id number] CT/CT ABDOMEN/PELVIS W Exam Date: 06/06/20 Exam [...] 4:04 PM Dictated By: TINO WONG MD [id number] Transcribed By: CEE on 06/06/20 0163 COPY TO: PANFILO PEARSON, CHEST SINGLE (PORTABLE) 2020-06-06 13:44:00 [facility] [address] [place] [address] Patient Name: LEIA MUELLER I MR #: [id number] : 1955 Age/Sex: 65/F Req #: [id number] Adm Physician: Ordered by: PANFILO PEARSON DO Report #: [id number] Location: ER Room/Bed: Procedure: [id number] DX/CHEST SINGLE (PORTABLE) Exam Date: 06/06/20 Exam [...] DO MRI SPINE LUMBAR WO 2020-03-01 10:55:00 [place] [id number] [place] [id number] Patient Name: LEIA MUELLER I MR #: [id number] : 1955 Age/Sex: 64/F Req #: [id number] [facility] Physician: MAYANK TEE MD Ordered by: MAYANK TEE MD Report #: [id number] Location: MED/SURG3 Room/Bed: [facility] Procedure: [id number] MRI/MRI SPINE LUMBAR WO Exam Date: Exam [...] Test Item Bedside Glucose (test code = 74868-4) 233 70-120 Meter ID: [id number] [facility] 2020-02-29 16:19:00 [place] [address] Patient Name: LEIA MUELLER I MR #: [id number] : 1955 Age/Sex: 64/F Req #: [id number] Adm Physician: MAYANK TEE MD Ordered by: [place] AUDIT[employer] Report #: [id number] Location: MED/SURG Room/Bed: [facility] Procedure: [id number] CT/CT ABDOMEN/P EROS WO Exam Date: 02/29/20 [...] on 02/29/20 1621 COPY TO: [place] AUDIT[employer] LUMBAR 3 [id number] 09:10:00 [place] [address] Patient Name: LEIA MUELLER I MR #: [id number] : 1955 Age/Sex: 64/F Req #: [id number] Adm Physician: MAYANK TEE MD Ordered by: [place] AUDIT[place] Report #: [id number] Location: MED/SURG Room/Bed: 108-1 Procedure: [id number] DX/LUMBAR 3 VIE W Exam Date: 02/28/20 [...] Level (test code = 2571-8) 168 0-149 [facility] measurement (mass/volume)2020-02-29 05:35:00* Test Item Value Reference Range Interpretation Comments Cholesterol Level (test code = 2093-3) 111 0-199 Less than 200 mg/dL Low Fjhi259 - 239 mg/dL Borderline Wodj103 m g/dl and greater High Risk [facility] cholesterol in LDL measurement (mass/volume) 2020-02-29 05:35:00* Test Item Value Reference Range Interpretation Comments LDL Cholesterol (test code = 2089-1) 34 60-130 [facility] cholesterol in HDL measurement (mass/volume)2020-02-29 05:35:00* Test Item Value Reference Range Interpretation Comments HDL Cholesterol (test code = 2085-9) 43 40-60 [facility] plasma total cholesterol/cholesterol in HDL mass uaruz8938-85-11 05:35:00* Test Item Value Reference Range Interpretation Comments Cholesterol/HDL Ratio (test code = 9830-1) 2.6 3.0-3.6 [facility] creatine kinase measurement (enzymatic activity/volume)2020-02-29 05:35:00* Test Item Value Reference Range Interpretation Comments Creatine Kinase (test code = 2157-6) 40 29-168 [facility] plasma creatine kinase MB measurement (mass/volume)2020-02-29 05:35:00* Test Item Value Reference Range Interpretation Comments Creatine Kinase MB (test code = 19831-0) 0.40 0-5.[address] [facility] HospitalTroponin I measurement by highly sensitive enzyme ntrepznxcyd8006-71-27 05:35:00* Test Item Value Reference Range Interpretation Comments Troponin I (test code = 28608-1) < 0.001 0-0.[address] [facility] HospitalFluoroscopic procedure less than one hour rpmrwkad6205-86-64 09:37:00* Test Item Value Reference Range Interpretation [...] complexity tests.Testing performed by [facility] [address] [phone] Director: Eris Brown M.D.CLIA # [id number] [facility] SINGLE (PORTABLE)2020-02-28 09:34:00 [facility] [address] [place] [address] Patient Name: LEIA MUELLER I MR #: [id number] : 1955 Age/Sex: 64/F Req #: [id number] Adm Physician: MAYANK TEE MD Ordered by: PANFILO PEARSON DO Report #: [id number] Location: [facility] Room/Bed: [place] [address] Procedure: [id number] DX/CHEST SING LE (PORTABLE) Exam Date: 02/28/20 [...] Count (test code = 6690-2) 8.75 4.8-10.[address] [address] erythrocytes automated count (number/volume)2020-02-28 08:00:00* Test Item Value Reference Range Interpretation Comments Red Blood Count (test code = 789-8) 4.60 3.6-5.[address] Hospital[facility] hemoglobin measurement (moles/volume)2020-02-28 08:00:00* Test Item Value Reference Range Interpretation Comments Hemoglobin (test code = 60531-9) 13.4 12.0-16.[address] [facility] HospitalAutomated blood hematocrit (volume fraction)2020-02-28 08:00:00* Test Item Value Reference Range Interpretation Comments Hematocrit (test code = 4544-3) 40.6 34.2-44.[address] HospitalAutomated erythrocyte mean corpuscular mwiqtm4531-59-23 08:00:00* Test Item Value Reference Range Interpretation Comments Mean Corpuscular Volume (test code = 787-2) 88.3 81-[address] HospitalAutomated erythrocyte mean corpuscular hemoglobin (mass per erythrocyte)2020-02-28 08:00:00* Test Item Value Reference Range Interpretation Comments Mean Corpuscular Hemoglobin (test code = 785-6) 29.1 28-[address] [facility] HospitalAutomated erythrocyte mean corpuscular hemoglobin concentration measurement (mass/volume)2020-02-28 08:00:00* Test Item Value Reference Range Interpretation Comments Mean Corpuscular Hemoglobin Concent (test code = 786-4) 33.0 31-[address] [facility] HospitalRDW ZvyIj-Mkr3939-56-21 08:00:00* Test Item Value Reference Range Interpretation Comments Red Cell Distribution Width (test code = 20880-8) 13.2 11.7 -14.[address] HospitalAutomated blood platelet count (count/volume)2020-02-28 08:00:00* Test Item Value Reference Range Interpretation Comments Platelet Count (test code = 777-3) 308 140-360 [facility] segmented neutrophil count as percentage of total rixdtzonwv5686-46-80 08:00:00* Test Item Value Reference Range Interpretation Comments Neutrophils (%) (Auto) (test code = 43452-9) 64.9 38.7-80.[address] HospitalAutomated blood lymphocyte count as percentage ot total fefufppysi1906-15-39 08:00:00* Test Item Value Reference Range Interpretation Comments Lymphocytes (%) (Auto) (test code = 736-9) 26.9 18.0-39.[address] HospitalAutomated blood monocyte count as percentage of total dkaojeoakq7164-40-42 08:00:00* Test Item Value Reference Range Interpretation Comments Monocytes (%) (Auto) (test code = 5905-5) 4.6 4.4-11.[address] HospitalAutomated blood eosinophil count as percentage of total qjkllmzjry7213-87-34 08:00:00* Test Item Value Reference Range Interpretation Comments Eosinophils (%) (Auto) (test code = 713-8) 2.7 0.0-6.[address] [facility] HospitalAut[facility] blood basophil count as percentage of total kbkbmeeonk1397-00-00 08:00:00* Test Item Value Reference Range Interpretation Comments Basophils (%) (Auto) (test code = 706-2) 0.6 0.0-1.[address] [facility] HospitalFluoroscopic procedure less than one hour huocvslj0132-59-09 08:00:00* Test Item Value Reference Range Interpretation Comments IM GRANULOCYTES % (test code = IM GRANULOCYTES %) 0.3 0.0- 1.[address] [facility]Aut[facility] blood neutrophil count 2020-02-28 08:00:00* Test Item Value Reference Range Interpretation Comments Neutrophils # (Auto) (test code = 751-8) 5.7 2.1-6.[address] HospitalBlood lymphocytes count (number/volume) 2020-02-28 08:00:00* Test Item Value Reference Range Interpretation Comments Lymphocytes # (Auto) (test code = 42878-6) 2.4 1.0-3.[address] HospitalBlood monocytes automated count (number/volume)2020-02-28 08:00:00* Test Item Value Reference Range Interpretation Comments Monocytes # (Auto) (test code = 742-7) 0.4 0.2-0.8 [facility] eosinophil count 2020-02-28 08:00:00* Test Item Value Reference Range Interpretation Comments Eosinophils # (Auto) (test code = 711-2) 0.2 0.0-0.[address] [facility] HospitalAutomated blood basophil count (count/volume)2020-02-28 08:00:00* Test Item Value Reference Range Interpretation Comments Basophils # (Auto) (test code = 704-7) 0.1 0.0-0.[address] [facility] HospitalFluoroscopic procedure less than one hour vdbglvpq1117-00-90 08:00:00* Test Item Value Reference Range Interpretation Comments Absolute Immature Granulocyte (auto (laura t code = Absolute Immature Granulocyte (auto) 0.03 0-0.[address] HospitalUrine color ocpmefobicydy2935-68-73 08:00:00* Test Item Value Reference Range Interpretation Comments Urine Color (test code = 5778-6) STRAW YELLOW [facility] HospitalUrine sobxxra5434-38-75 08:00:00* Test Item Value Reference Range Interpretation Comments Urine Clarity (test code = 03873-0) CLEAR CLEAR [facility] Centerpecific gravity of Urine by Test strip 2020-02-28 08:00:00* Test Item Value Reference Range Interpretation Comments Urine Specific [place] (test code = 5811-5) 1.020 1.010-1.[address] HospitalUrine pH measurement by automated test yafks1250-01-56 08:00:00* Test Item Value Reference Range Interpretation Comments Urine pH (test code = 37852-8) 7 5-[address] [facility] HospitalUrine leukocyte esterase detection by cuxuelnd5549-58-83 08:00:00* Test Item Value Reference Range Interpretation Comments Urine Leukocyte Esterase (test code = 5799-2) TRACE NEGATIVE [facility] HospitalUrine nitrite lgsqxjhwt3037-63-25 08:00:00* Test Item Value Reference Range Interpretation Comments Urine Nitrite (test code = 72932-6) NEGATIVE NEGATIVE [facility] HospitalUrine protein measurement by test strip (mass/volume)2020-02-28 08:00:00* Test Item Value Reference Range Interpretation Comments Urine Protein (test code = 5804-0) NEGATIVE NEGATIVE [facility] HospitalUrine glucose srzspsmdv9965-49-74 08:00:00* Test Item Value Reference Range Interpretation Comments Urine Glucose (UA) (test code = 2349-9) 2+ NEGATIVE [facility] HospitalUrine ketones detection by automated test vewch7671-13-26 08:00:00* Test Item Value Reference Range Interpretation Comments Urine Ketones (test code = 53562-5) NEGATIVE NEGATIVE [facility] HospitalUrine urobilinogen measurement by test strip (mass/volume)2020-02-28 08:00:00* Test Item Value Reference Range Interpretation Comments Urine Urobilinogen (test code = 08622-8) 0.2 0.2-[address] [facility] HospitalUrine total bilirubin measurement (mass/volume)2020-02-28 08:00:00* Test Item Value Reference Range Interpretation Comments Urine Bilirubin (test code = 1978-6) NEGATIVE NEGATIVE [facility] HospitalUrine erythrocytes wmqhowybu8117-81-66 08:00:00* Test Item Value Reference Range Interpretation Comments Urine Blood (test code = 90495-6) TRACE NEGATIVE [facility] HospitalAutomated urine sediment leukocyte count by microscopy (number/high power field)2020-02-28 08:00:00* Test Item Value Reference Range Interpretation Comments Urine WBC (test code = 5821-4) 11-20 0-[address] [facility] [facility] HospitalErythrocytes detection in urine sediment by light reaycqvmte1978-89-04 08:00:00* Test Item Value Reference Range Interpretation Comments Urine RBC (test code = 10710-6) 0-5 0-[address] [facility] HospitalBacteria detection in urine sediment by light qjqnywmgvk3186-31-81 08:00:00* Test Item Value Reference Range Interpretation Comments Urine Bacteria (test code = 94217-7) MANY NONE [facility] HospitalEpithelial cells detection in urine sediment by light gftbtavtrt2711-01-05 08:00:00* Test Item Value Reference Range Interpretation Comments Urine Epithelial Cells (test code = 52732-6) FEW NONE [facility] or plasma sodium measurement (moles/volume)2020-02-28 08:00:00* Test Item Value Reference Range Interpretation Comments Sodium Level (test code = 2951-2) 137 136-145 [facility]ere[facility] or plasma potassium measurement (moles/volume)2020-02-28 08:00:00* Test Item Value Reference Range Interpretation Comments Potassium Level (test code = 2823-3) 3.7 3.5-5.1 [facility]ere[facility] or plasma chloride measurement (moles/volume)2020-02-28 08:00:00* Test Item Value Reference Range Interpretation Comments Chloride Level (test code = 2075-0) 100 98-107 [facility]ere[facility] or plasma carbon dioxide, total measurement (moles/volume)2020-02-28 08:00:00* Test Item Value Reference Range Interpretation Comments Carbon Dioxide Level (test code = 2028-9) 25 22-29 [facility]ere[facility] or plasma anion wsr4403-92-20 08:00:00* Test Item Value Reference Range Interpretation Comments Anion Gap (test code = 50566-8) 15.7 8-16 [facility]ere[facility] or plasma urea nitrogen measurement (mass/volume)2020-02-28 08:00:00* Test Item Value Reference Range Interpretation Comments Blood Urea Nitrogen (test code = 3094-0) 17 7-26 [facility]ere[facility] or plasma creatinine measurement (mass/volume)2020-02-28 08:00:00* Test Item Value Reference Range Interpretation Comments Creatinine (test code = 2160-0) 0.89 0.57-1.11 [facility] Centererum or plasma urea nitrogen/creatinine mass zcphk2695-32-92 08:00:00* Test Item Value Reference Range Interpretation Comments BUN/Creatinine Ratio (test code = 3097-3) 19 6-[address] HospitalEstimated glomerular filtration rate (GFR) mnykoixwxbkvl8536-64-19 08:00:00* Test Item Value Reference Range Interpretation Comments Estimat Glomerular Filtration Rate (test code = 149764499) > 60 >60 Ranges were taken from the National Kidney Disease Education Program and the [facility] literature.Reference ranges:60 or greater: Mfftjl16-11 ( for 3 consecutive months): Chronic kidney disease 15 or less: Kidney failureCH[facility] HospitalGlucose qmocreytgfc1425-18-74 08:00:00* Test Item Value Reference Range Interpretation Comments Glucose Level (test code = YWM9951) 390 74-118 [facility]ere[facility] or plasma calcium measurement (mass/volume)2020-02-28 08:00:00* Test Item Value Reference Range Interpretation Comments Calcium Level (test code = 97246-9) 9.0 8.4-10.2 [facility]ere[facility] or plasma total bilirubin measurement (mass/volume)2020-02-28 08:00:00* Test Item Value Reference Range Interpretation Comments Total Bilirubin (test code = 1975-2) 0.3 0.2-1.[address] [facility] HospitalFluoroscopic procedure less than one hour xdnfdrwn6837-65-98 08:00:00* Test Item Value Reference Range Interpretation Comments Aspartate Amino Transf (AST/SGOT) (test code = Aspartate Amino Transf (AST/SGOT)) 13 5-34 [facility] Centererum or plasma alanine aminotransferase measurement (enzymatic activity/volume)2020-02-28 08:00:00* Test Item Value Reference Range Interpretation Comments Alanine Aminotransferase (ALT/SGPT) (test code = 1742-6) 17 0-55 [facility] Centererum or plasma protein measurement (mass/volume)2020-02-28 08:00:00* Test Item Value Reference Range Interpretation Comments Total Protein (test code = 2885-2) 7.1 6.5-8.1 [facility] albumin measurement (mass/volume)2020-02-28 08:00:00* Test Item Value Reference Range Interpretation Comments Albumin (test code = 1751-7) 3.3 3.5-5.[address] [facility]asma globulin measurement (mass/volume) 2020-02-28 08:00:00* Test Item Value Reference Range Interpretation Comments Globulin (test code = 38143-3) 3.8 2.3-3.5 [facility]ere[facility] or plasma albumin/globulin mass aphwf6000-21-63 08:00:00* Test Item Value Reference Range Interpretation Comments Albumin/Globulin Ratio (test code = 1759-0) 0.9 0.8-2.0 [facility] or plasma alkaline phosphatase measurement (enzymatic activity/volume)2020-02-28 08:00:00* Test Item Value Reference Range Interpretation Comments Alkaline Phosphatase (test code = 6768-6) 130 40-[address] [facility] HospitalBNP Opi-yOqv2176-16-21 08:00:00* Test Item Value Reference Range Interpretation Comments B-Type Natriuretic Peptide (test code = 29748-0) 12.1 0-[address] HospitalBacterial urine hsftclu4649-40-11 08:00:00* Test Item Value Reference Range Interpretation Comments Urine Culture (test code = 630-4) ESCHERICHIA COLI-ESBL [facility] HospitalUrine [id number] 15:38:00* Test Item Value Reference Range Interpretation Comments Urine WBC (test code = 5821-4) 6-10 0-[address] HospitalUrine JEC8406-22-73 15:38:00* Test Item Value Reference Range Interpretation Comments Urine RBC (test code = 34181-1) 0-5 0-[address] [facility] HospitalUrine Tcoqefgc2515-77-06 15:38:00* Test Item Value Reference Range Interpretation Comments Urine Bacteria (test code = 91152-2) MANY NONE H [facility] HospitalUrine Epithelial Ifoar2992-90-11 15:38:00 * Test Item Value Reference Range Interpretation Comments Urine Epithelial Cells (test code = 90580-8) MANY NONE [facility] HospitalU[facility] XAI5709-16-27 15:38:00* Test Item Value Reference Range Interpretation Comments Urine WBC (test code = 5821-4) 6-10 0-[address] HospitalUrine [id number] 15:38:00* Test Item Value Reference Range Interpretation Comments Urine RBC (test code = 04848-2) 0-5 0-[address] [facility] HospitalUrine Nmcyoezp7103-82-36 15:38:00* Test Item Value Reference Range Interpretation Comments Urine Bacteria (test code = 09314-5) MANY NONE H [facility] HospitalUrine Epithelial Rgddh4004-90-77 15:38:00 * Test Item Value Reference Range Interpretation Comments Urine Epithelial Cells (test code = 47683-5) MANY NONE [facility] HospitalU[facility] Pfkjn7208-38-48 15:34:00* Test Item Value Reference Range Interpretation Comments Urine Color (test code = 5778-6) YELLOW YELLOW [facility] HospitalUrine Lncmbym7568-61-04 15:34:00* Test Item Value Reference Range Interpretation Comments Urine Clarity (test code = 36208-4) CLOUDY CLEAR H [facility] HospitalUrine Specific Ujxxxpn1806-82-82 15:34:00 * Test Item Value Reference Range Interpretation Comments Urine Specific [place] (test code = 5811-5) 1.025 1.010-1.[address] [facility] HospitalUrine tM9768-93-65 15:34:00* Test Item Value Reference Range Interpretation Comments Urine pH (test code = 22708-9) 6 5-[address] HospitalUrine Leukocyte Obyanwuk0417-38-22 15:34:00* Test Item Value Reference Range Interpretation Comments Urine Leukocyte Esterase (test code = 5799-2) NEGATIVE NEGATIVE [facility] HospitalU[facility] Fxwfmcp8820-50-65 15:34:00* Test Item Value Reference Range Interpretation Comments Urine Nitrite (test code = 92696-2) POSITIVE NEGATIVE [facility] HospitalU[facility] Pbeolya6197-43-57 15:34:00* Test Item Value Reference Range Interpretation Comments Urine Protein (test code = 5804-0) NEGATIVE NEGATIVE [facility] HospitalU[facility] Glucose (UA)2019-12-11 15:34:00* Test Item Value Reference Range Interpretation Comments Urine Glucose (UA) (test code = 2349-9) 3+ NEGATIVE [facility] HospitalU[facility] Hmoalpm0847-59-98 15:34:00* Test Item Value Reference Range Interpretation Comments Urine Ketones (test code = 05399-1) NEGATIVE NEGATIVE [facility] HospitalU[facility] Ecfvhwbgacvx6430-81-91 15:34:00* Test Item Value Reference Range Interpretation Comments Urine Urobilinogen (test code = 65569-4) 0.2 0.2-[address] [facility] HospitalU[facility] Xrnxtfjso8823-22-79 15:34:00* Test Item Value Reference Range Interpretation Comments Urine Bilirubin (test code = 1978-6) NEGATIVE NEGATIVE [facility] HospitalU[facility] Eyljp3554-67-94 15:34:00* Test Item Value Reference Range Interpretation Comments Urine Blood (test code = 71006-1) NEGATIVE NEGATIVE [facility] HospitalU[facility] Cgyfg7264-74-98 15:34:00* Test Item Value Reference Range Interpretation Comments Urine Color (test code = 5778-6) YELLOW YELLOW [facility] HospitalU[facility] Lxkupcy2204-97-84 15:34:00* Test Item Value Reference Range Interpretation Comments Urine Clarity (test code = 34498-5) CLOUDY CLEAR H [facility] HospitalUrine Specific Lkcbzaq6184-61-84 15:34:00 * Test Item Value Reference Range Interpretation Comments Urine Specific [place] (test code = 5811-5) 1.025 1.010-1.[address] HospitalUrine pL7788-96-97 15:34:00* Test Item Value Reference Range Interpretation Comments Urine pH (test code = 61279-9) 6 5-[address] [facility] HospitalU[facility] Leukocyte Yohezzcu1184-96-57 15:34:00* Test Item Value Reference Range Interpretation Comments Urine Leukocyte Esterase (test code = 5799-2) NEGATIVE NEGATIVE [facility] Tdplnug6515-61-82 15:34:00* Test Item Value Reference Range Interpretation Comments Urine Nitrite (test code = 51127-2) POSITIVE NEGATIVE [facility] Kvyvzey9353-77-33 15:34:00* Test Item Value Reference Range Interpretation Comments Urine Protein (test code = 5804-0) NEGATIVE NEGATIVE [facility] HospitalU[facility] Glucose (UA)2019-12-11 15:34:00* Test Item Value Reference Range Interpretation Comments Urine Glucose (UA) (test code = 2349-9) 3+ NEGATIVE [facility] Ygacurl3190-24-43 15:34:00* Test Item Value Reference Range Interpretation Comments Urine Ketones (test code = 37555-7) NEGATIVE NEGATIVE [facility] HospitalU[facility] Iqihrwmzseco8118-19-61 15:34:00* Test Item Value Reference Range Interpretation Comments Urine Urobilinogen (test code = 83953-1) 0.2 0.2-[address] [facility] HospitalU[facility] Lnaxdejvh8871-44-38 15:34:00* Test Item Value Reference Range Interpretation Comments Urine Bilirubin (test code = 1978-6) NEGATIVE NEGATIVE [facility] Yobbk0400-19-95 15:34:00* Test Item Value Reference Range Interpretation Comments Urine Blood (test code = 41033-0) NEGATIVE NEGATIVE [facility] HospitalCT ABDOMEN/PELVIS [id number] 15:10:00 [facility] [address] [place] [address] Patient Name: LEIA MUELLER MR #: [id number] : 1955 Age/Sex: 64/F Req #: [id number] Adm Physician: Ordered by: PANFILO CASILLAS MD Report #: [id number] Location: ER Room/Bed: Procedure: [id number] CT/CT ABDOMEN/PELVIS W Exam Date: 07/16/19 Exam [...] 1523 COPY TO: PANFILO CASILLAS MD Urine [id number] 13:18:00* Test Item Value Reference Range Interpretation Comments Urine WBC (test code = 5821-4) >50 0-[address] [facility] HospitalUrine OAY2027-65-05 13:18:00* Test Item Value Reference Range Interpretation Comments Urine RBC (test code = 65959-3) 21-50 0-[address] HospitalUrine Anxuiigs7284-53-76 13:18:00* Test Item Value Reference Range Interpretation Comments Urine Bacteria (test code = 01762-6) MANY NONE H [facility] HospitalU[facility] Epithelial Otann7975-06-77 13:18:00 * Test Item Value Reference Range Interpretation Comments Urine Epithelial Cells (test code = 15522-6) MANY NONE [facility] HospitalCreatine Kinase IJ2882-51-01 13:13:00* Test Item Value Reference Range Interpretation Comments Creatine Kinase MB (test code = 51022-5) 0.80 0-5.[address] [facility] HospitalTrm[facility] centern [id number] 13:13:00* Test Item Value Reference Range Interpretation Comments Troponin I (test code = DIE7365) < 0.001 0-0.[address] HospitalCreatine Kinase SY9010-91-96 13:13:00* Test Item Value Reference Range Interpretation Comments Creatine Kinase MB (test code = 33610-6) 0.80 0-5.[address] HospitalTroponin [id number] 13:13:00* Test Item Value Reference Range Interpretation Comments Troponin I (test code = XIQ9496) < 0.001 0-0.[address] HospitalCreatine Kinase PM8106-53-07 13:13:00* Test Item Value Reference Range Interpretation Comments Creatine Kinase MB (test code = 81024-7) 0.80 0-5.0 [place] 90298019-10-07 13:13:00* Test Item Value Reference Range Interpretation Comments Troponin I (test code = SRH8830) < 0.001 0-0.[address] HospitalUrine Udihb6216-42-87 13:11:00* Test Item Value Reference Range Interpretation Comments Urine Color (test code = 5778-6) YELLOW YELLOW [facility] HospitalUrine Sjqqmne3528-86-68 13:11:00* Test Item Value Reference Range Interpretation Comments Urine Clarity (test code = 80860-4) CLOUDY CLEAR H [facility] HospitalUrine Specific Poqndqk1642-31-19 13:11:00 * Test Item Value Reference Range Interpretation Comments Urine Specific [place] (test code = 5811-5) 1.010 1.010-1.[address] [facility] HospitalUrine sB5202-73-82 13:11:00* Test Item Value Reference Range Interpretation Comments Urine pH (test code = 70555-6) 6 5-[address] HospitalUrine Leukocyte Tgavtzus7830-20-77 13:11:00* Test Item Value Reference Range Interpretation Comments Urine Leukocyte Esterase (test code = 76782-3) MODERATE NEGATIV E [facility] HospitalU[facility] Zfdydtj2172-07-43 13:11:00* Test Item Value Reference Range Interpretation Comments Urine Nitrite (test code = 30767-9) NEGATIVE NEGATIVE [facility] HospitalU[facility] Pekmkmc2385-69-11 13:11:00* Test Item Value Reference Range Interpretation Comments Urine Protein (test code = 48690-8) NEGATIVE NEGATIVE [facility] HospitalUrine Glucose (UA)2019-07-16 13:11:00* Test Item Value Reference Range Interpretation Comments Urine Glucose (UA) (test code = 68425-7) 3+ NEGATIVE H [facility] Zacbbej7932-19-83 13:11:00* Test Item Value Reference Range Interpretation Comments Urine Ketones (test code = 28249-0) NEGATIVE NEGATIVE [facility] Tolprihohbgy2711-62-49 13:11:00* Test Item Value Reference Range Interpretation Comments Urine Urobilinogen (test code = 98772-3) 0.2 0.2-1 [facility] Gagnylapj1745-13-94 13:11:00* Test Item Value Reference Range Interpretation Comments Urine Bilirubin (test code = 1977-8) NEGATIVE NEGATIVE [facility] Jlgmv5797-63-76 13:11:00* Test Item Value Reference Range Interpretation Comments Urine Blood (test code = 98947-1) TRACE NEGATIVE H [facility] Centerodium Pgivs3367-38-54 13:04:00* Test Item Value Reference Range Interpretation Comments Sodium Level (test code = 2951-2) 139 136-[address] [facility] HospitalPotassium Dmgxo3778-02-97 13:04:00* Test Item Value Reference Range Interpretation Comments Potassium Level (test code = 2823-3) 3.7 3.5-5.[address] HospitalChloride Snmmq8071-75-85 13:04:00* Test Item Value Reference Range Interpretation Comments Chloride Level (test code = 2075-0) 101 98-[address] HospitalCarbon Dioxide Gzjah5034-13-97 13:04:00* Test Item Value Reference Range Interpretation Comments Carbon Dioxide Level (test code = 2028-9) 29 22-[address] [facility] HospitalAnion Ohh5602-50-46 13:04:00* Test Item Value Reference Range Interpretation Comments Anion Gap (test code = 49411-4) 12.7 8-[address] [facility] HospitalBlood Urea Spumfkiu5609-08-68 13:04:00* Test Item Value Reference Range Interpretation Comments Blood Urea Nitrogen (test code = 3094-0) 10 7-[address] HospitalCreatinine2019-10-07 13:04:00* Test Item Value Reference Range Interpretation Comments Creatinine (test code = 2160-0) 0.82 0.57-1.[address] HospitalBUN/Creatinine Jytlp9650-05-81 13:04:00* Test Item Value Reference Range Interpretation Comments BUN/Creatinine Ratio (test code = 3097-3) 12 6-[address] HospitalEstimat Glomerular Filtration Rate 2019-07-16 13:04:00* Test Item Value Reference Range Interpretation Comments Estimat Glomerular Filtration Rate (test code = 443796531) > 60 >60 Ranges were taken from the National Kidney Disease Education Program and the [facility] [employer] literature.Reference ranges:60 or greater: Vepjtl13-92 ( for 3 consecutive months): Chronic kidney disease 15 or less: Kidney failureCH[facility] HospitalGlucose Kjgit3253-24-48 13:04:00* Test Item Value Reference Range Interpretation Comments Glucose Level (test code = RPQ9710) 176 74-[address] HospitalCalcium Cpsnm8363-62-28 13:04:00* Test Item Value Reference Range Interpretation Comments Calcium Level (test code = 83347-7) 9.4 8.4-10.[address] [facility] HospitalTotal Qfywmgwom0903-86-31 13:04:00* Test Item Value Reference Range Interpretation Comments Total Bilirubin (test code = 1975-2) 0.3 0.2-1.[address] HospitalAspartate Amino Transf (AST/SGOT) 2019-07-16 13:04:00* Test Item Value Reference Range Interpretation Comments Aspartate Amino Transf (AST/SGOT) (test code = Aspartate Amino Transf (AST/SGOT)) 43 5-[address] [facility] HospitalAlanine Aminotransferase (ALT/SGPT) 2019-07-16 13:04:00* Test Item Value Reference Range Interpretation Comments Alanine Aminotransferase (ALT/SGPT) (test code = 1742-6) 35 0-[address] HospitalTotal Qqobchx6443-07-85 13:04:00* Test Item Value Reference Range Interpretation Comments Total Protein (test code = 2885-2) 7.1 6.5-8.[address] [facility] HospitalAlbumin2019-10-07 13:04:00* Test Item Value Reference Range Interpretation Comments Albumin (test code = 1751-7) 3.3 3.5-5.[address] HospitalGlobulin2019-10-07 13:04:00* Test Item Value Reference Range Interpretation Comments Globulin (test code = 64471-4) 3.8 2.3-3.[address] [facility] HospitalAlbumin/Globulin Iepwr8972-80-64 13:04:00 * Test Item Value Reference Range Interpretation Comments Albumin/Globulin Ratio (test code = 1759-0) 0.9 0.8-2.[address] [facility] HospitalAlkaline Cduiapsqnfk5053-39-35 13:04:00* Test Item Value Reference Range Interpretation Comments Alkaline Phosphatase (test code = 6768-6) 121 40-[address] HospitalCreatine Fqvmef1957-86-88 13:04:00* Test Item Value Reference Range Interpretation Comments Creatine Kinase (test code = 2157-6) 32 29-168 [facility] Centerodium Rmvhb2119-41-83 13:04:00* Test Item Value Reference Range Interpretation Comments Sodium Level (test code = 2951-2) 139 136-[address] [facility] HospitalPotassium Bcief5165-19-23 13:04:00* Test Item Value Reference Range Interpretation Comments Potassium Level (test code = 2823-3) 3.7 3.5-5.[address] [facility] HospitalChloride Erxsh8929-46-12 13:04:00* Test Item Value Reference Range Interpretation Comments Chloride Level (test code = 2075-0) 101 98-[address] HospitalCarbon Dioxide Qyirh1157-58-17 13:04:00* Test Item Value Reference Range Interpretation Comments Carbon Dioxide Level (test code = 2028-9) 29 22-[address] [facility] HospitalAnion Rqp7691-06-50 13:04:00* Test Item Value Reference Range Interpretation Comments Anion Gap (test code = 45648-5) 12.7 8-[address] [facility] HospitalBlood Urea Eftletxg9884-47-07 13:04:00* Test Item Value Reference Range Interpretation Comments Blood Urea Nitrogen (test code = 3094-0) 10 7-[address] HospitalCreatinine2019-10-07 13:04:00* Test Item Value Reference Range Interpretation Comments Creatinine (test code = 2160-0) 0.82 0.57-1.[address] HospitalBUN/Creatinine Mvhkw1368-73-60 13:04:00* Test Item Value Reference Range Interpretation Comments BUN/Creatinine Ratio (test code = 3097-3) 12 6-[address] HospitalEstimat Glomerular Filtration Rate 2019-07-16 13:04:00* Test Item Value Reference Range Interpretation Comments Estimat Glomerular Filtration Rate (test code = 089078801) > 60 >60 Ranges were taken from the National Kidney Disease Education Program and the [facility] [employer] literature.Reference ranges:60 or greater: Pmlply23-85 ( for 3 consecutive months): Chronic kidney disease 15 or less: Kidney failureCH[facility] HospitalGlucose Gscoy3474-05-68 13:04:00* Test Item Value Reference Range Interpretation Comments Glucose Level (test code = WDO8313) 176 74-[address] [facility] HospitalCalcium Fntmk1576-02-73 13:04:00* Test Item Value Reference Range Interpretation Comments Calcium Level (test code = 13011-9) 9.4 8.4-10.[address] [facility] HospitalTotal Eyirrquel5342-51-71 13:04:00* Test Item Value Reference Range Interpretation Comments Total Bilirubin (test code = 1975-2) 0.3 0.2-1.[address] HospitalAspartate Amino Transf (AST/SGOT) 2019-07-16 13:04:00* Test Item Value Reference Range Interpretation Comments Aspartate Amino Transf (AST/SGOT) (test code = Aspartate Amino Transf (AST/SGOT)) 43 5-[address] [facility] HospitalAlanine Aminotransferase (ALT/SGPT) 2019-07-16 13:04:00* Test Item Value Reference Range Interpretation Comments Alanine Aminotransferase (ALT/SGPT) (test code = 1742-6) 35 0-[address] [facility] HospitalTotal Rptfocz2718-64-63 13:04:00* Test Item Value Reference Range Interpretation Comments Total Protein (test code = 2885-2) 7.1 6.5-8.[address] HospitalAlbumin2019-10-07 13:04:00* Test Item Value Reference Range Interpretation Comments Albumin (test code = 1751-7) 3.3 3.5-5.[address] HospitalGlobulin2019-10-07 13:04:00* Test Item Value Reference Range Interpretation Comments Globulin (test code = 24961-7) 3.8 2.3-3.[address] HospitalAlbumin/Globulin Jvnbd9663-08-58 13:04:00 * Test Item Value Reference Range Interpretation Comments Albumin/Globulin Ratio (test code = 1759-0) 0.9 0.8-2.[address] HospitalAlkaline Cywspmnkgze7505-62-93 13:04:00* Test Item Value Reference Range Interpretation Comments Alkaline Phosphatase (test code = 6768-6) 121 40-[address] [facility] HospitalCreatine Ptsmak2688-62-88 13:04:00* Test Item Value Reference Range Interpretation Comments Creatine Kinase (test code = 2157-6) 32 29-168 [facility] Centerodium Anscd6665-14-85 13:04:00* Test Item Value Reference Range Interpretation Comments Sodium Level (test code = 2951-2) 139 136-[address] [facility] HospitalPotassium Wwojt9708-64-95 13:04:00* Test Item Value Reference Range Interpretation Comments Potassium Level (test code = 2823-3) 3.7 3.5-5.[address] HospitalChloride Vovrt1315-85-67 13:04:00* Test Item Value Reference Range Interpretation Comments Chloride Level (test code = 2075-0) 101 98-[address] HospitalCarbon Dioxide Duxnp8923-53-99 13:04:00* Test Item Value Reference Range Interpretation Comments Carbon Dioxide Level (test code = 2028-9) 29 22-[address] [facility] HospitalAnion Nfe2045-06-42 13:04:00* Test Item Value Reference Range Interpretation Comments Anion Gap (test code = 91134-1) 12.7 8-[address] [facility] HospitalBlood Urea Medicefq4927-64-95 13:04:00* Test Item Value Reference Range Interpretation Comments Blood Urea Nitrogen (test code = 3094-0) 10 7-[address] HospitalCreatinine2019-10-07 13:04:00* Test Item Value Reference Range Interpretation Comments Creatinine (test code = 2160-0) 0.82 0.57-1.[address] [facility] HospitalBUN/Creatinine Zsqdy0730-36-73 13:04:00* Test Item Value Reference Range Interpretation Comments BUN/Creatinine Ratio (test code = 3097-3) 12 6-[address] [facility] HospitalEstimat Glomerular Filtration Rate 2019-07-16 13:04:00* Test Item Value Reference Range Interpretation Comments Estimat Glomerular Filtration Rate (test code = 996766912) > 60 >60 Ranges were taken from the National Kidney Disease Education Program and the [facility] [employer] literature.Reference ranges:60 or greater: Evtpjq45-62 ( for 3 consecutive months): Chronic kidney disease 15 or less: Kidney failureCH[facility] HospitalGlucose Dwnba3552-71-79 13:04:00* Test Item Value Reference Range Interpretation Comments Glucose Level (test code = WHH4094) 176 74-[address] [facility] HospitalCalcium Nqfio5130-64-67 13:04:00* Test Item Value Reference Range Interpretation Comments Calcium Level (test code = 20284-4) 9.4 8.4-10.[address] [facility] HospitalTotal Wxgmugiar7165-55-91 13:04:00* Test Item Value Reference Range Interpretation Comments Total Bilirubin (test code = 1975-2) 0.3 0.2-1.[address] HospitalAspartate Amino Transf (AST/SGOT) 2019-07-16 13:04:00* Test Item Value Reference Range Interpretation Comments Aspartate Amino Transf (AST/SGOT) (test code = Aspartate Amino Transf (AST/SGOT)) 43 5-[address] [facility] HospitalAlanine Aminotransferase (ALT/SGPT) 2019-07-16 13:04:00* Test Item Value Reference Range Interpretation Comments Alanine Aminotransferase (ALT/SGPT) (test code = 1742-6) 35 0-[address] [facility] HospitalTotal Rkgikwo0339-91-53 13:04:00* Test Item Value Reference Range Interpretation Comments Total Protein (test code = 2885-2) 7.1 6.5-8.[address] [facility] HospitalAlbumin2019-10-07 13:04:00* Test Item Value Reference Range Interpretation Comments Albumin (test code = 1751-7) 3.3 3.5-5.[address] HospitalGlobulin2019-10-07 13:04:00* Test Item Value Reference Range Interpretation Comments Globulin (test code = 89542-5) 3.8 2.3-3.[address] HospitalAlbumin/Globulin Kmvdy3322-53-77 13:04:00 * Test Item Value Reference Range Interpretation Comments Albumin/Globulin Ratio (test code = 1759-0) 0.9 0.8-2.[address] HospitalAlkaline Pxxxmlqgchu4291-08-05 13:04:00* Test Item Value Reference Range Interpretation Comments Alkaline Phosphatase (test code = 6768-6) 121 40-[address] HospitalCreatine Arlsvs6932-87-92 13:04:00* Test Item Value Reference Range Interpretation Comments Creatine Kinase (test code = 2157-6) 32 29-[address] [facility] [address] [facility] HospitalWhite Blood Fktst1093-86-50 12:59:00* Test Item Value Reference Range Interpretation Comments White Blood Count (test code = 6690-2) 8.47 4.8-10.[address] [facility] HospitalRed Blood Uqive0000-99-27 12:59:00* Test Item Value Reference Range Interpretation Comments Red Blood Count (test code = 789-8) 4.89 3.6-5.[address] [facility] HospitalHemoglobin2019-10-07 12:59:00* Test Item Value Reference Range Interpretation Comments Hemoglobin (test code = 97715-1) 14.3 12.0-16.[address] [facility] [facility] HospitalHematocrit2019-10-07 12:59:00* Test Item Value Reference Range Interpretation Comments Hematocrit (test code = 4544-3) 42.6 34.2-44.[address] [facility] HospitalMean Corpuscular Qotilu5029-61-08 12:59:00* Test Item Value Reference Range Interpretation Comments Mean Corpuscular Volume (test code = 787-2) 87.1 81-[address] [facility] [facility] HospitalMean Corpuscular Spmylugfcs8452-50-73 12:59:00* Test Item Value Reference Range Interpretation Comments Mean Corpuscular Hemoglobin (test code = 785-6) 29.2 28-[address] [facility] HospitalMean Corpuscular Hemoglobin Concent 2019-07-16 12:59:00* Test Item Value Reference Range Interpretation Comments Mean Corpuscular Hemoglobin Concent (test code = 786-4) 33.6 31-[address] [facility] HospitalRed Cell Distribution Cupdi1654-84-53 12:59:00* Test Item Value Reference Range Interpretation Comments Red Cell Distribution Width (test code = 35989-0) 13.2 11.7 -14.[address] HospitalPlatelet Lsuny9692-77-31 12:59:00* Test Item Value Reference Range Interpretation Comments Platelet Count (test code = 777-3) 325 140-[address] HospitalNeutrophils (%) (Auto)2019-07-16 12:59:00 * Test Item Value Reference Range Interpretation Comments Neutrophils (%) (Auto) (test code = 15829-8) 65.6 38.7-80.[address] HospitalLymphocytes (%) (Auto)2019-07-16 12:59:00 * Test Item Value Reference Range Interpretation Comments Lymphocytes (%) (Auto) (test code = 736-9) 27.9 18.0-39.[address] HospitalMonocytes (%) (Auto)2019-07-16 12:59:00* Test Item Value Reference Range Interpretation Comments Monocytes (%) (Auto) (test code = 5905-5) 3.4 4.4-11.[address] HospitalEosinophils (%) (Auto)2019-07-16 12:59:00 * Test Item Value Reference Range Interpretation Comments Eosinophils (%) (Auto) (test code = 713-8) 2.0 0.0-6.[address] HospitalBasophils (%) (Auto)2019-07-16 12:59:00* Test Item Value Reference Range Interpretation Comments Basophils (%) (Auto) (test code = 706-2) 0.7 0.0-1.[address] HospitalIM GRANULOCYTES %2019-07-16 12:59:00* Test Item Value Reference Range Interpretation Comments IM GRANULOCYTES % (test code = IM GRANULOCYTES %) 0.4 0.0- 1.[address] [facility] HospitalNeutrophils # (Auto)2019-07-16 12:59:00* Test Item Value Reference Range Interpretation Comments Neutrophils # (Auto) (test code = 751-8) 5.6 2.1-6.[address] HospitalLymphocytes # (Auto)2019-07-16 12:59:00* Test Item Value Reference Range Interpretation Comments Lymphocytes # (Auto) (test code = 17399-5) 2.4 1.0-3.[address] HospitalMonocytes # (Auto)2019-07-16 12:59:00* Test Item Value Reference Range Interpretation Comments Monocytes # (Auto) (test code = 742-7) 0.3 0.2-0.[address] HospitalEosinophils # (Auto)2019-07-16 12:59:00* Test Item Value Reference Range Interpretation Comments Eosinophils # (Auto) (test code = 711-2) 0.2 0.0-0.[address] HospitalBasophils # (Auto)2019-07-16 12:59:00* Test Item Value Reference Range Interpretation Comments Basophils # (Auto) (test code = 704-7) 0.1 0.0-0.[address] HospitalAbsolute Immature Granulocyte (auto 2019-07-16 12:59:00* Test Item Value Reference Range Interpretation Comments Absolute Immature Granulocyte (auto (laura t code = Absolute Immature Granulocyte (auto) 0.03 0-0.[address] HospitalWhite Blood Uuiwt6013-69-64 12:59:00* Test Item Value Reference Range Interpretation Comments White Blood Count (test code = 6690-2) 8.47 4.8-10.[address] [facility] HospitalRed Blood Natty3800-11-86 12:59:00* Test Item Value Reference Range Interpretation Comments Red Blood Count (test code = 789-8) 4.89 3.6-5.[address] HospitalHemoglobin2019-10-07 12:59:00* Test Item Value Reference Range Interpretation Comments Hemoglobin (test code = 21654-2) 14.3 12.0-16.[address] HospitalHematocrit2019-10-07 12:59:00* Test Item Value Reference Range Interpretation Comments Hematocrit (test code = 4544-3) 42.6 34.2-44.[address] HospitalMean Corpuscular Xdelcf4789-31-73 12:59:00* Test Item Value Reference Range Interpretation Comments Mean Corpuscular Volume (test code = 787-2) 87.1 81-[address] HospitalMean Corpuscular Mzlxgjhmmk5420-61-22 12:59:00* Test Item Value Reference Range Interpretation Comments Mean Corpuscular Hemoglobin (test code = 785-6) 29.2 28-[address] [facility] HospitalMean Corpuscular Hemoglobin Concent 2019-07-16 12:59:00* Test Item Value Reference Range Interpretation Comments Mean Corpuscular Hemoglobin Concent (test code = 786-4) 33.6 31-[address] HospitalRed Cell Distribution Sdjaf0322-08-51 12:59:00* Test Item Value Reference Range Interpretation Comments Red Cell Distribution Width (test code = 59874-2) 13.2 11.7 -14.[address] [facility] HospitalPlatelet Zpjyq2101-14-66 12:59:00* Test Item Value Reference Range Interpretation Comments Platelet Count (test code = 777-3) 325 140-[address] [facility] HospitalNeutrophils (%) (Auto)2019-07-16 12:59:00 * Test Item Value Reference Range Interpretation Comments Neutrophils (%) (Auto) (test code = 61422-3) 65.6 38.7-80.[address] HospitalLymphocytes (%) (Auto)2019-07-16 12:59:00 * Test Item Value Reference Range Interpretation Comments Lymphocytes (%) (Auto) (test code = 736-9) 27.9 18.0-39.[address] HospitalMonocytes (%) (Auto)2019-07-16 12:59:00* Test Item Value Reference Range Interpretation Comments Monocytes (%) (Auto) (test code = 5905-5) 3.4 4.4-11.[address] [facility] HospitalEosinophils (%) (Auto)2019-07-16 12:59:00 * Test Item Value Reference Range Interpretation Comments Eosinophils (%) (Auto) (test code = 713-8) 2.0 0.0-6.[address] HospitalBasophils (%) (Auto)2019-07-16 12:59:00* Test Item Value Reference Range Interpretation Comments Basophils (%) (Auto) (test code = 706-2) 0.7 0.0-1.[address] HospitalIM GRANULOCYTES %2019-07-16 12:59:00* Test Item Value Reference Range Interpretation Comments IM GRANULOCYTES % (test code = IM GRANULOCYTES %) 0.4 0.0- 1.[address] [facility] HospitalNeutrophils # (Auto)2019-07-16 12:59:00* Test Item Value Reference Range Interpretation Comments Neutrophils # (Auto) (test code = 751-8) 5.6 2.1-6.[address] HospitalLymphocytes # (Auto)2019-07-16 12:59:00* Test Item Value Reference Range Interpretation Comments Lymphocytes # (Auto) (test code = 90575-4) 2.4 1.0-3.[address] HospitalMonocytes # (Auto)2019-07-16 12:59:00* Test Item Value Reference Range Interpretation Comments Monocytes # (Auto) (test code = 742-7) 0.3 0.2-0.[address] HospitalEosinophils # (Auto)2019-07-16 12:59:00* Test Item Value Reference Range Interpretation Comments Eosinophils # (Auto) (test code = 711-2) 0.2 0.0-0.[address] HospitalBasophils # (Auto)2019-07-16 12:59:00* Test Item Value Reference Range Interpretation Comments Basophils # (Auto) (test code = 704-7) 0.1 0.0-0.[address] HospitalAbsolute Immature Granulocyte (auto 2019-07-16 12:59:00* Test Item Value Reference Range Interpretation Comments Absolute Immature Granulocyte (auto (laura t code = Absolute Immature Granulocyte (auto) 0.03 0-0.[address] [facility] HospitalWhite Blood Ptoee7465-07-70 12:59:00* Test Item Value Reference Range Interpretation Comments White Blood Count (test code = 6690-2) 8.47 4.8-10.[address] [facility] HospitalRed Blood Qqlbt8160-98-68 12:59:00* Test Item Value Reference Range Interpretation Comments Red Blood Count (test code = 789-8) 4.89 3.6-5.[address] HospitalHemoglobin2019-10-07 12:59:00* Test Item Value Reference Range Interpretation Comments Hemoglobin (test code = 64401-3) 14.3 12.0-16.[address] HospitalHematocrit2019-10-07 12:59:00* Test Item Value Reference Range Interpretation Comments Hematocrit (test code = 4544-3) 42.6 34.2-44.[address] HospitalMean Corpuscular Pilvww4125-58-56 12:59:00* Test Item Value Reference Range Interpretation Comments Mean Corpuscular Volume (test code = 787-2) 87.1 81-[address] HospitalMean Corpuscular Ibeqcpalfy2532-03-30 12:59:00* Test Item Value Reference Range Interpretation Comments Mean Corpuscular Hemoglobin (test code = 785-6) 29.2 28-[address] [facility] HospitalMean Corpuscular Hemoglobin Concent 2019-07-16 12:59:00* Test Item Value Reference Range Interpretation Comments Mean Corpuscular Hemoglobin Concent (test code = 786-4) 33.6 31-[address] HospitalRed Cell Distribution Sgswj1415-62-68 12:59:00* Test Item Value Reference Range Interpretation Comments Red Cell Distribution Width (test code = 48428-5) 13.2 11.7 -14.[address] [facility] HospitalPlatelet Pngpy9104-02-01 12:59:00* Test Item Value Reference Range Interpretation Comments Platelet Count (test code = 777-3) 325 140-[address] [facility] HospitalNeutrophils (%) (Auto)2019-07-16 12:59:00 * Test Item Value Reference Range Interpretation Comments Neutrophils (%) (Auto) (test code = 99855-4) 65.6 38.7-80.[address] HospitalLymphocytes (%) (Auto)2019-07-16 12:59:00 * Test Item Value Reference Range Interpretation Comments Lymphocytes (%) (Auto) (test code = 736-9) 27.9 18.0-39.[address] HospitalMonocytes (%) (Auto)2019-07-16 12:59:00* Test Item Value Reference Range Interpretation Comments Monocytes (%) (Auto) (test code = 5905-5) 3.4 4.4-11.[address] [facility] HospitalEosinophils (%) (Auto)2019-07-16 12:59:00 * Test Item Value Reference Range Interpretation Comments Eosinophils (%) (Auto) (test code = 713-8) 2.0 0.0-6.[address] HospitalBasophils (%) (Auto)2019-07-16 12:59:00* Test Item Value Reference Range Interpretation Comments Basophils (%) (Auto) (test code = 706-2) 0.7 0.0-1.[address] HospitalIM GRANULOCYTES %2019-07-16 12:59:00* Test Item Value Reference Range Interpretation Comments IM GRANULOCYTES % (test code = IM GRANULOCYTES %) 0.4 0.0- 1.[address] [facility] HospitalNeutrophils # (Auto)2019-07-16 12:59:00* Test Item Value Reference Range Interpretation Comments Neutrophils # (Auto) (test code = 751-8) 5.6 2.1-6.[address] HospitalLymphocytes # (Auto)2019-07-16 12:59:00* Test Item Value Reference Range Interpretation Comments Lymphocytes # (Auto) (test code = 21065-5) 2.4 1.0-3.[address] [facility] HospitalMonocytes # (Auto)2019-07-16 12:59:00* Test Item Value Reference Range Interpretation Comments Monocytes # (Auto) (test code = 742-7) 0.3 0.2-0.[address] HospitalEosinophils # (Auto)2019-07-16 12:59:00* Test Item Value Reference Range Interpretation Comments Eosinophils # (Auto) (test code = 711-2) 0.2 0.0-0.[address] [facility] HospitalBasophils # (Auto)2019-07-16 12:59:00* Test Item Value Reference Range Interpretation Comments Basophils # (Auto) (test code = 704-7) 0.1 0.0-0.[address] [facility] HospitalAbsolute Immature Granulocyte (auto 2019-07-16 12:59:00* Test Item Value Reference Range Interpretation Comments Absolute Immature Granulocyte (auto (laura t code = Absolute Immature Granulocyte (auto) 0.03 0-0.1 [facility] Mwasxcp3828-89-45 12:19:00* Test Item Value Reference Range Interpretation Comments Bedside Glucose (test code = 64928-1) 166 70-120 H Meter ID: [id number] [facility] Glucose 2019-07-16 12:19:00* Test Item Value Reference Range Interpretation Comments Bedside Glucose (test code = 85907-6) 166 70-120 H Meter ID: [id number] Glucose 2019-07-16 12:19:00* Test Item Value Reference Range Interpretation Comments Bedside Glucose (test code = 06196-7) 166 70-120 H Meter ID: [id number] HospitalUrine Culture 2019-04-05 07:17:00* Test Item Value Reference Range Interpretation Comments Urine Culture (test code = 630-4) No Result Data Provided [facility] HospitalUrine Vwecfto1144-70-88 07:17:00* Test Item Value Reference Range Interpretation Comments Urine Culture (test code = 630-4) No Result Data Provided [facility] HospitalUrine Jmhzmvb6962-24-19 07:17:00* Test Item Value Reference Range Interpretation Comments Urine Culture (test code = 630-4) No Result Data Provided [facility] HospitalCT ABDOMEN/PELVIS Q1628-16-04 15:21:00 [place] [address] Patient Name: LEIA MUELLER MR #: [id number] : 1955 Age/Sex: 63/F Req #: [id number] [facility] Physician: Ordered by: AURELIO GAMBLE MD Report #: [id number] [facility] o/Bed: Procedure: CT/CT A BDOMEN/PELVIS W Exam [...] 1529 COPY TO: AURELIO GAMBLE MD Urine GHA5145-84-83 13:38:00* Test Item Value Reference Range Interpretation Comments Urine WBC (test code = 5821-4) 11-20 0-[address] HospitalUrine LFY1630-04-82 13:38:00* Test Item Value Reference Range Interpretation Comments Urine RBC (test code = 66611-6) NONE 0-[address] [facility] HospitalUrine Skqezywp3434-86-95 13:38:00* Test Item Value Reference Range Interpretation Comments Urine Bacteria (test code = 52514-3) MANY NONE H [facility] HospitalUrine Epithelial Fjgjz0337-00-68 13:38:00 * Test Item Value Reference Range Interpretation Comments Urine Epithelial Cells (test code = 83598-4) [facility]W [facility]ONE [facility]odium Agjgy4736-58-02 13:24:00* Test Item Value Reference Range Interpretation Comments Sodium Level (test code = 2951-2) 135 136-[address] [facility] HospitalPotassium Haqye8189-42-66 13:24:00* Test Item Value Reference Range Interpretation Comments Potassium Level (test code = 2823-3) 4.0 3.5-5.[address] HospitalChloride Kclyp2938-43-28 13:24:00* Test Item Value Reference Range Interpretation Comments Chloride Level (test code = 2075-0) 97 98-[address] HospitalAnion Ihp5443-47-64 13:24:00* Test Item Value Reference Range Interpretation Comments Anion Gap (test code = 17337-0) 14.0 8-[address] [facility] HospitalUrine Qlxgi4045-44-62 13:21:00* Test Item Value Reference Range Interpretation Comments Urine Color (test code = 5778-6) YELLOW YELLOW [facility] HospitalUrine Lhslthq1185-89-12 13:21:00* Test Item Value Reference Range Interpretation Comments Urine Clarity (test code = 87611-9) CLEAR CLEAR [facility] HospitalUrine Specific Jxuigcp9432-37-64 13:21:00 * Test Item Value Reference Range Interpretation Comments Urine Specific [place] (test code = 5811-5) <=1.005 1.010-1.[address] [facility] HospitalUrine qR0208-62-08 13:21:00* Test Item Value Reference Range Interpretation Comments Urine pH (test code = 74929-7) 6.5 5-[address] [facility] HospitalUrine Leukocyte Wjxwjmid4630-30-34 13:21:00* Test Item Value Reference Range Interpretation Comments Urine Leukocyte Esterase (test code = 64503-4) MODERATE NEGATIV E [facility] HospitalUrine Fppmqyu7570-02-11 13:21:00* Test Item Value Reference Range Interpretation Comments Urine Nitrite (test code = 51572-0) NEGATIVE NEGATIVE [facility] HospitalUrine Kddvewf3599-48-52 13:21:00* Test Item Value Reference Range Interpretation Comments Urine Protein (test code = 78418-3) NEGATIVE NEGATIVE [facility] HospitalUrine Glucose (UA)2019-04-03 13:21:00* Test Item Value Reference Range Interpretation Comments Urine Glucose (UA) (test code = 54960-1) 3+ NEGATIVE H [facility] HospitalUrine Akzdvki7597-25-70 13:21:00* Test Item Value Reference Range Interpretation Comments Urine Ketones (test code = 31213-4) NEGATIVE NEGATIVE [facility] HospitalUrine Ivtgfraflmjs7139-18-14 13:21:00* Test Item Value Reference Range Interpretation Comments Urine Urobilinogen (test code = 41309-1) 0.2 0.2-[address] [facility] HospitalUrine Xiqadhuxm9672-45-84 13:21:00* Test Item Value Reference Range Interpretation Comments Urine Bilirubin (test code = 1977-8) NEGATIVE NEGATIVE [facility] HospitalUrine Flhhu9095-44-84 13:21:00* Test Item Value Reference Range Interpretation Comments Urine Blood (test code = 33750-9) NEGATIVE NEGATIVE [facility] HospitalCreatine Kinase LU7067-61-78 13:15:00* Test Item Value Reference Range Interpretation Comments Creatine Kinase MB (test code = 63894-4) 0.70 0-5.[address] HospitalTroponin Q6644-31-29 13:15:00* Test Item Value Reference Range Interpretation Comments Troponin I (test code = WRI2455) < 0.001 0-0.[address] [facility] HospitalWhite Blood Kxbmo2705-21-15 13:11:00* Test Item Value Reference Range Interpretation Comments White Blood Count (test code = 6690-2) 10.16 4.8-10.[address] [facility] HospitalRed Blood Mjpaz7050-18-51 13:11:00* Test Item Value Reference Range Interpretation Comments Red Blood Count (test code = 789-8) 4.63 3.6-5.[address] HospitalHemoglobin2019-06-25 13:11:00* Test Item Value Reference Range Interpretation Comments Hemoglobin (test code = 33771-8) 13.5 12.0-16.[address] HospitalHematocrit2019-06-25 13:11:00* Test Item Value Reference Range Interpretation Comments Hematocrit (test code = 4544-3) 39.7 34.2-44.[address] HospitalMean Corpuscular Ukrunl8613-59-50 13:11:00* Test Item Value Reference Range Interpretation Comments Mean Corpuscular Volume (test code = 787-2) 85.7 81-[address] HospitalMean Corpuscular Oytdobokov4334-49-93 13:11:00* Test Item Value Reference Range Interpretation Comments Mean Corpuscular Hemoglobin (test code = 785-6) 29.2 28-[address] [facility] HospitalMean Corpuscular Hemoglobin Concent 2019-04-03 13:11:00* Test Item Value Reference Range Interpretation Comments Mean Corpuscular Hemoglobin Concent (test code = 786-4) 34.0 31-[address] HospitalRed Cell Distribution Zqpmz4791-85-71 13:11:00* Test Item Value Reference Range Interpretation Comments Red Cell Distribution Width (test code = 80783-7) 13.6 11.7 -14.[address] [facility] HospitalPlatelet Yadlr3838-97-76 13:11:00* Test Item Value Reference Range Interpretation Comments Platelet Count (test code = 777-3) 291 140-[address] [facility] HospitalNeutrophils (%) (Auto)2019-04-03 13:11:00 * Test Item Value Reference Range Interpretation Comments Neutrophils (%) (Auto) (test code = 34889-7) 76.4 38.7-80.[address] HospitalLymphocytes (%) (Auto)2019-04-03 13:11:00 * Test Item Value Reference Range Interpretation Comments Lymphocytes (%) (Auto) (test code = 736-9) 17.8 18.0-39.[address] [facility] HospitalMonocytes (%) (Auto)2019-04-03 13:11:00* Test Item Value Reference Range Interpretation Comments Monocytes (%) (Auto) (test code = 5905-5) 3.3 4.4-11.[address] [facility] HospitalEosinophils (%) (Auto)2019-04-03 13:11:00 * Test Item Value Reference Range Interpretation Comments Eosinophils (%) (Auto) (test code = 713-8) 1.7 0.0-6.[address] HospitalBasophils (%) (Auto)2019-04-03 13:11:00* Test Item Value Reference Range Interpretation Comments Basophils (%) (Auto) (test code = 706-2) 0.5 0.0-1.[address] HospitalIM GRANULOCYTES %2019-04-03 13:11:00* Test Item Value Reference Range Interpretation Comments IM GRANULOCYTES % (test code = IM GRANULOCYTES %) 0.3 0.0- 1.[address] [facility] HospitalNeutrophils # (Auto)2019-04-03 13:11:00* Test Item Value Reference Range Interpretation Comments Neutrophils # (Auto) (test code = 751-8) 7.8 2.1-6.[address] [facility] HospitalLymphocytes # (Auto)2019-04-03 13:11:00* Test Item Value Reference Range Interpretation Comments Lymphocytes # (Auto) (test code = 96634-9) 1.8 1.0-3.[address] [facility] HospitalMonocytes # (Auto)2019-04-03 13:11:00* Test Item Value Reference Range Interpretation Comments Monocytes # (Auto) (test code = 742-7) 0.3 0.2-0.[address] [facility] HospitalEosinophils # (Auto)2019-04-03 13:11:00* Test Item Value Reference Range Interpretation Comments Eosinophils # (Auto) (test code = 711-2) 0.2 0.0-0.[address] [facility] HospitalBasophils # (Auto)2019-04-03 13:11:00* Test Item Value Reference Range Interpretation Comments Basophils # (Auto) (test code = 704-7) 0.1 0.0-0.[address] [facility] HospitalAbsolute Immature Granulocyte (auto 2019-04-03 13:11:00* Test Item Value Reference Range Interpretation Comments Absolute Immature Granulocyte (auto (laura t code = Absolute Immature Granulocyte (auto) 0.03 0-0.[address] [facility] HospitalProthrombin Kxxt0015-40-98 13:09:00* Test Item Value Reference Range Interpretation Comments Prothrombin Time (test code = 5902-2) 13.0 11.9-14.[address] [facility] HospitalProthromb Time International Ratio 2019-04-03 13:09:00* Test Item Value Reference Range Interpretation Comments Prothromb Time International Ratio (test code = 6301-6) 0.93 Oral Anticoagulant Therapy INR Values:1. Low Intensity Therapy 1.5 - 2.02 . Moderate Intensity Therapy 2.0 - 3.03. High Intensity Therapy(1) 2.5 - 3. 54. High Intensity Therapy(2) 3.0 - 4.05. Panic Value INR > 5.[address] [facility] [facility] HospitalActivated Partial Thromboplast Time 2019-04-03 13:09:00* Test Item Value Reference Range Interpretation Comments Activated Partial Thromboplast Time (test code = 29786-9) 29.6 23.8-35.[address] HospitalProthrombin Lbxx6762-82-66 13:09:00* Test Item Value Reference Range Interpretation Comments Prothrombin Time (test code = 5902-2) 13.0 11.9-14.[address] HospitalProthromb Time International Ratio 2019-04-03 13:09:00* Test Item Value Reference Range Interpretation Comments Prothromb Time International Ratio (test code = 6301-6) 0.93 Oral Anticoagulant Therapy INR Values:1. Low Intensity Therapy 1.5 - 2.02 . Moderate Intensity Therapy 2.0 - 3.03. High Intensity Therapy(1) 2.5 - 3. 54. High Intensity Therapy(2) 3.0 - 4.05. Panic Value INR > 5.[address] [facility] [facility] HospitalActivated Partial Thromboplast Time 2019-04-03 13:09:00* Test Item Value Reference Range Interpretation Comments Activated Partial Thromboplast Time (test code = 97162-6) 29.6 23.8-35.[address] [facility] HospitalProthrombin Ckor5972-52-05 13:09:00* Test Item Value Reference Range Interpretation Comments Prothrombin Time (test code = 5902-2) 13.0 11.9-14.[address] [facility] HospitalProthromb Time International Ratio 2019-04-03 13:09:00* Test Item Value Reference Range Interpretation Comments Prothromb Time International Ratio (test code = 6301-6) 0.93 Oral Anticoagulant Therapy INR Values:1. Low Intensity Therapy 1.5 - 2.02 . Moderate Intensity Therapy 2.0 - 3.03. High Intensity Therapy(1) 2.5 - 3. 54. High Intensity Therapy(2) 3.0 - 4.05. Panic Value INR > 5.[address] [facility] HospitalActivated Partial Thromboplast Time 2019-04-03 13:09:00* Test Item Value Reference Range Interpretation Comments Activated Partial Thromboplast Time (test code = 57477-6) 29.6 23.8-35.[address] [facility] HospitalProthrombin Egzw6081-67-76 13:09:00* Test Item Value Reference Range Interpretation Comments Prothrombin Time (test code = 5902-2) 13.0 11.9-14.[address] HospitalProthromb Time International Ratio 2019-04-03 13:09:00* Test Item Value Reference Range Interpretation Comments Prothromb Time International Ratio (test code = 6301-6) 0.93 Oral Anticoagulant Therapy INR Values:1. Low Intensity Therapy 1.5 - 2.02 . Moderate Intensity Therapy 2.0 - 3.03. High Intensity Therapy(1) 2.5 - 3. 54. High Intensity Therapy(2) 3.0 - 4.05. Panic Value INR > 5.[address] [facility] HospitalActivated Partial Thromboplast Time 2019-04-03 13:09:00* Test Item Value Reference Range Interpretation Comments Activated Partial Thromboplast Time (test code = 08847-7) 29.6 23.8-35.[address] HospitalCarbon Dioxide Fzpny1861-25-82 13:07:00* Test Item Value Reference Range Interpretation Comments Carbon Dioxide Level (test code = 2028-9) 28 22-[address] [facility] HospitalBlood Urea Nqfwonoy4001-40-50 13:07:00* Test Item Value Reference Range Interpretation Comments Blood Urea Nitrogen (test code = 3094-0) 10 7-[address] [facility] HospitalCreatinine2019-06-25 13:07:00* Test Item Value Reference Range Interpretation Comments Creatinine (test code = 2160-0) 0.84 0.57-1.[address] HospitalBUN/Creatinine Wdvea1153-66-44 13:07:00* Test Item Value Reference Range Interpretation Comments BUN/Creatinine Ratio (test code = 3097-3) 12 -[address] [facility] HospitalEstimat Glomerular Filtration Rate 2019-04-03 13:07:00* Test Item Value Reference Range Interpretation Comments Estimat Glomerular Filtration Rate (test code = 707951871) > 60 >60 Ranges were taken from the National Kidney Disease Education Program and the [facility] literature.Reference ranges:60 or greater: Tzvxdf03-91 ( for 3 consecutive months): Chronic kidney disease 15 or less: Kidney failureCHI [facility]anoGlucose Fbsev6846-16-59 13:07:00* Test Item Value Reference Range Interpretation Comments Glucose Level (test code = DPT8891) 296 74-[address] HospitalCalcium Ysrdd8816-48-01 13:07:00* Test Item Value Reference Range Interpretation Comments Calcium Level (test code = 70140-7) 9.2 8.4-10.[address] [facility] HospitalMagnesium Olmkr3594-60-68 13:07:00* Test Item Value Reference Range Interpretation Comments Magnesium Level (test code = 32238-2) 2.0 1.3-2.[address] [facility] HospitalTotal Xatpxolfw9734-87-74 13:07:00* Test Item Value Reference Range Interpretation Comments Total Bilirubin (test code = 1975-2) 0.3 0.2-1.[address] [facility] HospitalAspartate Amino Transf (AST/SGOT) 2019-04-03 13:07:00* Test Item Value Reference Range Interpretation Comments Aspartate Amino Transf (AST/SGOT) (test code = Aspartate Amino Transf (AST/SGOT)) 15 5-[address] HospitalAlanine Aminotransferase (ALT/SGPT) 2019-04-03 13:07:00* Test Item Value Reference Range Interpretation Comments Alanine Aminotransferase (ALT/SGPT) (test code = 1742-6) 26 0-[address] [facility] HospitalTotal Hcfssbu3016-60-17 13:07:00* Test Item Value Reference Range Interpretation Comments Total Protein (test code = 2885-2) 7.3 6.5-8.[address] [facility] HospitalAlbumin2019-06-25 13:07:00* Test Item Value Reference Range Interpretation Comments Albumin (test code = 1751-7) 3.6 3.5-5.[address] [facility] HospitalGlobulin2019-06-25 13:07:00* Test Item Value Reference Range Interpretation Comments Globulin (test code = 98539-3) 3.7 2.3-3.[address] HospitalAlbumin/Globulin Lhbtx5603-31-08 13:07:00 * Test Item Value Reference Range Interpretation Comments Albumin/Globulin Ratio (test code = 1759-0) 1.0 0.8-2.[address] HospitalAlkaline Darucutxqap2128-41-49 13:07:00* Test Item Value Reference Range Interpretation Comments Alkaline Phosphatase (test code = 6768-6) 152 40-[address] [facility] HospitalCreatine Mhjzea3098-34-99 13:07:00* Test Item Value Reference Range Interpretation Comments Creatine Kinase (test code = 2157-6) 60 29-[address] [facility] HospitalAmylase Yjtbu0148-36-34 13:07:00* Test Item Value Reference Range Interpretation Comments Amylase Level (test code = 1798-8) 45 25-[address] [facility] HospitalLipase2019-06-25 13:07:00* Test Item Value Reference Range Interpretation Comments Lipase (test code = 3040-3) 9 -[address] [facility] HospitalMagnesium Yqnvd9397-96-28 13:07:00* Test Item Value Reference Range Interpretation Comments Magnesium Level (test code = 67796-1) 2.0 1.3-2.[address] [facility] HospitalAmylase Wrfli5937-82-41 13:07:00* Test Item Value Reference Range Interpretation Comments Amylase Level (test code = 1798-8) 45 25-[address] [facility] HospitalLipase2019-06-25 13:07:00* Test Item Value Reference Range Interpretation Comments Lipase (test code = 3040-3) 9 8-[address] HospitalMagnesium Foesb8138-98-81 13:07:00* Test Item Value Reference Range Interpretation Comments Magnesium Level (test code = 41219-4) 2.0 1.3-2.[address] [facility] HospitalAmylase Ubbyd8548-83-60 13:07:00* Test Item Value Reference Range Interpretation Comments Amylase Level (test code = 1798-8) 45 - [facility] HospitalLipase2019-06-25 13:07:00* Test Item Value Reference Range Interpretation Comments Lipase (test code = 3040-3) [facility] HospitalMagnesium Cbvjq1775-96-53 13:07:00* Test Item Value Reference Range Interpretation Comments Magnesium Level (test code = 59143-5) 2.0 1.3-2.[address] HospitalAmylase Xqqyq2487-95-03 13:07:00* Test Item Value Reference Range Interpretation Comments Amylase Level (test code = 1798-8) [address] HospitalLipase2019-06-25 13:07:00* Test Item Value Reference Range Interpretation Comments Lipase (test code = 3040-3) [facility] HospitalCHEST SINGLE (PORTABLE)2019-04-03 12:40:00 [place] [address] Patient Name: LEIA MUELLER MR #: [id number] : 1955 Age/Sex: 63/F Req #: [id number] Adm Physician: Ordered by: AURELIO GAMBLE MD Report #: [id number] Location: ER Room/Bed: Procedure: [id number] DX/CHES T SINGLE (PORTABLE) Exam Date: Exam [...] 1242 COPY TO: AURELIO GAMBLE MD Urine SFV9215-92-69 16:21:00 * Test Item Value Reference Range Interpretation Comments Urine WBC (test code = 5821-4) 0-5 0-[address] [facility] HospitalUrine EMV3599-09-55 16:21:00* Test Item Value Reference Range Interpretation Comments Urine RBC (test code = 51950-5) NONE 0-[address] [facility] HospitalUrine Lkkplmaf6156-41-95 16:21:00* Test Item Value Reference Range Interpretation Comments Urine Bacteria (test code = 63947-2) MANY NONE H [facility] HospitalUrine Epithelial Volsc7966-44-79 16:21:00 * Test Item Value Reference Range Interpretation Comments Urine Epithelial Cells (test code = 41317-1) FEW NONE [facility] Ylcqllh0741-36-10 16:12:00* Test Item Value Reference Range Interpretation Comments Bedside Glucose (test code = 41139-6) 338 70-120 H Meter ID: [id number] [facility] & [facility] Glucose 2019-01-17 16:12:00* Test Item Value Reference Range Interpretation Comments Bedside Glucose (test code = 50599-1) 338 70-120 H Meter ID: [id number] St[facility] HospitalUrine Ijrly7840-66-41 16:09:00* Test Item Value Reference Range Interpretation Comments Urine Color (test code = 5778-6) YELLOW YELLOW [facility] HospitalUrine Ltlnxvw9287-14-55 16:09:00* Test Item Value Reference Range Interpretation Comments Urine Clarity (test code = 51851-5) SL CLOUDY CLEAR [facility] HospitalUrine Specific Oloyobb1312-47-62 16:09:00 * Test Item Value Reference Range Interpretation Comments Urine Specific [place] (test code = 5811-5) 1.015 1.010-1.[address] HospitalUrine jL0658-97-18 16:09:00* Test Item Value Reference Range Interpretation Comments Urine pH (test code = 70843-4) 6 5-[address] [facility] HospitalUrine Leukocyte Drhxxaai7835-53-91 16:09:00* Test Item Value Reference Range Interpretation Comments Urine Leukocyte Esterase (test code = 5799-2) NEGATIVE NEGATIVE [facility] HospitalUrine Lphiydc6043-17-15 16:09:00* Test Item Value Reference Range Interpretation Comments Urine Nitrite (test code = 08488-7) POSITIVE NEGATIVE H [facility] HospitalUrine Pytjtsf7837-94-50 16:09:00* Test Item Value Reference Range Interpretation Comments Urine Protein (test code = 5804-0) NEGATIVE NEGATIVE [facility] HospitalUrine Glucose (UA)2019-01-17 16:09:00* Test Item Value Reference Range Interpretation Comments Urine Glucose (UA) (test code = 2349-9) 3+ NEGATIVE H [facility] Qemyevq3562-79-24 16:09:00* Test Item Value Reference Range Interpretation Comments Urine Ketones (test code = 75647-5) NEGATIVE NEGATIVE [facility] Hmcejcmmjmyu8125-10-16 16:09:00* Test Item Value Reference Range Interpretation Comments Urine Urobilinogen (test code = 75231-6) 0.2 0.2-[address] HospitalUrine Ftajtbdps2836-77-80 16:09:00* Test Item Value Reference Range Interpretation Comments Urine Bilirubin (test code = 1978-6) NEGATIVE NEGATIVE [facility] Mdxru0446-36-65 16:09:00* Test Item Value Reference Range Interpretation Comments Urine Blood (test code = 89983-1) NEGATIVE NEGATIVE [facility] HospitalB-Type Natriuretic Ztnaznb1317-38-27 14:58:00* Test Item Value Reference Range Interpretation Comments B-Type Natriuretic Peptide (test code = 65896-6) 21.8 0-[address] HospitalB-Type Natriuretic Owrfanu5746-83-68 14:58:00* Test Item Value Reference Range Interpretation Comments B-Type Natriuretic Peptide (test code = 59318-9) 21.8 0-[address] [facility] HospitalB-Type Natriuretic Aclosmb2229-34-67 14:58:00* Test Item Value Reference Range Interpretation Comments B-Type Natriuretic Peptide (test code = 11086-6) 21.8 0-[address] HospitalCreatine Kinase GQ2595-96-28 14:53:00* Test Item Value Reference Range Interpretation Comments Creatine Kinase MB (test code = 92429-4) 0.50 0-5.[address] HospitalTroponin Y7716-24-21 14:53:00* Test Item Value Reference Range Interpretation Comments Troponin I (test code = EOE8266) 0.010 0-0.300 [facility] Beeih7334-97-98 14:47:00* Test Item Value Reference Range Interpretation Comments Sodium Level (test code = 2951-2) 135 136-[address] [facility] HospitalPotassium Esbeq7929-51-84 14:47:00* Test Item Value Reference Range Interpretation Comments Potassium Level (test code = 2823-3) 3.9 3.5-5.[address] HospitalChloride Hhinm7398-12-82 14:47:00* Test Item Value Reference Range Interpretation Comments Chloride Level (test code = 2075-0) 99 98-[address] [facility] HospitalCarbon Dioxide Yqrof5603-87-24 14:47:00* Test Item Value Reference Range Interpretation Comments Carbon Dioxide Level (test code = 2028-9) 29 22-[address] [facility] HospitalAnion Pez1946-74-75 14:47:00* Test Item Value Reference Range Interpretation Comments Anion Gap (test code = 93405-4) 10.9 8-[address] HospitalBlood Urea Xehrfbmw6486-78-09 14:47:00* Test Item Value Reference Range Interpretation Comments Blood Urea Nitrogen (test code = 3094-0) 17 7-[address] HospitalCreatinine2019-04-10 14:47:00* Test Item Value Reference Range Interpretation Comments Creatinine (test code = 2160-0) 1.08 0.57-1.[address] HospitalBUN/Creatinine Ztnme1423-18-03 14:47:00* Test Item Value Reference Range Interpretation Comments BUN/Creatinine Ratio (test code = 3097-3) 16 6-[address] HospitalEstimat Glomerular Filtration Rate 2019-01-17 14:47:00* Test Item Value Reference Range Interpretation Comments Estimat Glomerular Filtration Rate (test code = 518322335) 51 >60 L Ranges were taken from the National Kidney Disease Education Program and the [facility] Kid[facility] Foundation literature.Reference ranges:60 or greater: Qpkxlx41-92 ( for 3 consecutive months): Chronic kidney disease 15 or less: Kidney failureCH[facility] HospitalGlucose Tpwtt5712-38-52 14:47:00* Test Item Value Reference Range Interpretation Comments Glucose Level (test code = EOP5304) 349 74-[address] HospitalCalcium Xxjdr2456-94-46 14:47:00* Test Item Value Reference Range Interpretation Comments Calcium Level (test code = 51788-7) 9.4 8.4-10.[address] [facility] HospitalMagnesium Opmhp0187-36-23 14:47:00* Test Item Value Reference Range Interpretation Comments Magnesium Level (test code = 53945-7) 1.8 1.3-2.[address] [facility] HospitalTotal Gnsjjoylx4698-76-94 14:47:00* Test Item Value Reference Range Interpretation Comments Total Bilirubin (test code = 1975-2) 0.3 0.2-1.[address] HospitalAspartate Amino Transf (AST/SGOT) 2019-01-17 14:47:00* Test Item Value Reference Range Interpretation Comments Aspartate Amino Transf (AST/SGOT) (test code = Aspartate Amino Transf (AST/SGOT)) 15 5-[address] HospitalAlanine Aminotransferase (ALT/SGPT) 2019-01-17 14:47:00* Test Item Value Reference Range Interpretation Comments Alanine Aminotransferase (ALT/SGPT) (test code = 1742-6) 18 0-[address] [facility] HospitalTotal Hdlvdhh6677-68-41 14:47:00* Test Item Value Reference Range Interpretation Comments Total Protein (test code = 2885-2) 6.6 6.5-8.[address] [facility] HospitalAlbumin2019-04-10 14:47:00* Test Item Value Reference Range Interpretation Comments Albumin (test code = 1751-7) 3.1 3.5-5.[address] HospitalGlobulin2019-04-10 14:47:00* Test Item Value Reference Range Interpretation Comments Globulin (test code = 99172-7) 3.5 2.3-3.[address] HospitalAlbumin/Globulin Sjjkk4869-65-92 14:47:00 * Test Item Value Reference Range Interpretation Comments Albumin/Globulin Ratio (test code = 1759-0) 0.9 0.8-2.[address] [facility] HospitalAlkaline Gfooztrjsas0925-19-72 14:47:00* Test Item Value Reference Range Interpretation Comments Alkaline Phosphatase (test code = 6768-6) 124 40-[address] HospitalCreatine Dqiafz6903-16-07 14:47:00* Test Item Value Reference Range Interpretation Comments Creatine Kinase (test code = 2157-6) 36 29-[address] [facility] HospitalProthrombin Xgcr9681-52-20 14:45:00* Test Item Value Reference Range Interpretation Comments Prothrombin Time (test code = 5902-2) 12.7 11.9-14.[address] [facility] HospitalProthromb Time International Ratio 2019-01-17 14:45:00* Test Item Value Reference Range Interpretation Comments Prothromb Time International Ratio (test code = 6301-6) 0.91 Oral Anticoagulant Therapy INR Values:1. Low Intensity Therapy 1.5 - 2.02 . Moderate Intensity Therapy 2.0 - 3.03. High Intensity Therapy(1) 2.5 - 3. 54. High Intensity Therapy(2) 3.0 - 4.05. Panic Value INR > 5.[address] [facility] HospitalActivated Partial Thromboplast Time 2019-01-17 14:45:00* Test Item Value Reference Range Interpretation Comments Activated Partial Thromboplast Time (test code = 83016-1) 27.1 23.8-35.[address] [facility] HospitalCHEST 2 USJUN9926-12-08 14:42:00 [facility] [address] [place] [address] Patient Name: LEIA MUELLER MR #: [id number] : 1955 Age/Sex: 63/F Req #: [id number] Adm Physician: Ordered by: ARNAUD [place] [employer] Report #: [id number] Location: ER Room/Bed: Procedure: [id number] DX/CH EST 2 VIEWS Exam Date: Exam [...] ARNAUD CLEMENT NP Influenza Virus Types A,B Kghnzuf9364-66-79 14:38:00* Test Item Value Reference Range Interpretation Comments Influenza Virus Types A,B Antigen (test code = 47448-9) NEGATIVE NEGATIVE [facility] HospitalInfluenza Virus Types A,B Antigen 2019-01-17 14:38:00* Test Item Value Reference Range Interpretation Comments Influenza Virus Types A,B Antigen (test code = 51751-0) NEGATIVE NEGATIVE [facility] HospitalInfluenza Virus Types A,B Antigen 2019-01-17 14:38:00* Test Item Value Reference Range Interpretation Comments Influenza Virus Types A,B Antigen (test code = 65991-2) NEGATIVE NEGATIVE [facility] HospitalWhite Blood Mgope0037-91-95 14:31:00* Test Item Value Reference Range Interpretation Comments White Blood Count (test code = 6690-2) 11.33 4.8-10.[address] [facility] HospitalRed Blood Vrnuj2125-46-48 14:31:00* Test Item Value Reference Range Interpretation Comments Red Blood Count (test code = 789-8) 4.37 3.6-5.[address] HospitalHemoglobin2019-04-10 14:31:00* Test Item Value Reference Range Interpretation Comments Hemoglobin (test code = 34477-4) 12.9 12.0-16.[address] HospitalHematocrit2019-04-10 14:31:00* Test Item Value Reference Range Interpretation Comments Hematocrit (test code = 4544-3) 38.3 34.2-44.[address] [facility] HospitalMean Corpuscular Evorat3678-19-52 14:31:00* Test Item Value Reference Range Interpretation Comments Mean Corpuscular Volume (test code = 787-2) 87.6 81-[address] [facility] HospitalMean Corpuscular Uozvqhymhi0529-46-47 14:31:00* Test Item Value Reference Range Interpretation Comments Mean Corpuscular Hemoglobin (test code = 785-6) 29.5 28-[address] [facility] HospitalMean Corpuscular Hemoglobin Concent 2019-01-17 14:31:00* Test Item Value Reference Range Interpretation Comments Mean Corpuscular Hemoglobin Concent (test code = 786-4) 33.7 31-[address] HospitalRed Cell Distribution Acnaj4616-52-30 14:31:00* Test Item Value Reference Range Interpretation Comments Red Cell Distribution Width (test code = 50159-8) 13.3 11.7 -14.[address] [facility] HospitalPlatelet Qowkc4739-63-04 14:31:00* Test Item Value Reference Range Interpretation Comments Platelet Count (test code = 777-3) 274 140-[address] [facility] HospitalNeutrophils (%) (Auto)2019-01-17 14:31:00 * Test Item Value Reference Range Interpretation Comments Neutrophils (%) (Auto) (test code = 72015-2) 78.4 38.7-80.[address] [facility] HospitalLymphocytes (%) (Auto)2019-01-17 14:31:00 * Test Item Value Reference Range Interpretation Comments Lymphocytes (%) (Auto) (test code = 736-9) 15.7 18.0-39.[address] HospitalMonocytes (%) (Auto)2019-01-17 14:31:00* Test Item Value Reference Range Interpretation Comments Monocytes (%) (Auto) (test code = 5905-5) 4.1 4.4-11.[address] HospitalEosinophils (%) (Auto)2019-01-17 14:31:00 * Test Item Value Reference Range Interpretation Comments Eosinophils (%) (Auto) (test code = 713-8) 1.0 0.0-6.[address] HospitalBasophils (%) (Auto)2019-01-17 14:31:00* Test Item Value Reference Range Interpretation Comments Basophils (%) (Auto) (test code = 706-2) 0.4 0.0-1.[address] HospitalIM GRANULOCYTES %2019-01-17 14:31:00* Test Item Value Reference Range Interpretation Comments IM GRANULOCYTES % (test code = IM GRANULOCYTES %) 0.4 0.0- 1.[address] [facility] HospitalNeutrophils # (Auto)2019-01-17 14:31:00* Test Item Value Reference Range Interpretation Comments Neutrophils # (Auto) (test code = 751-8) 8.9 2.1-6.[address] [facility] HospitalLymphocytes # (Auto)2019-01-17 14:31:00* Test Item Value Reference Range Interpretation Comments Lymphocytes # (Auto) (test code = 83745-1) 1.8 1.0-3.[address] HospitalMonocytes # (Auto)2019-01-17 14:31:00* Test Item Value Reference Range Interpretation Comments Monocytes # (Auto) (test code = 742-7) 0.5 0.2-0.[address] [facility] HospitalEosinophils # (Auto)2019-01-17 14:31:00* Test Item Value Reference Range Interpretation Comments Eosinophils # (Auto) (test code = 711-2) 0.1 0.0-0.[address] HospitalBasophils # (Auto)2019-01-17 14:31:00* Test Item Value Reference Range Interpretation Comments Basophils # (Auto) (test code = 704-7) 0.1 0.0-0.[address] HospitalAbsolute Immature Granulocyte (auto 2019-01-17 14:31:00* Test Item Value Reference Range Interpretation Comments Absolute Immature Granulocyte (auto (laura t code = Absolute Immature Granulocyte (auto) 0.04 0-0.[address] [facility] HospitalUrine Nyflp6763-82-88 16:22:00* Test Item Value Reference Range Interpretation Comments Urine Color (test code = 5778-6) YELLOW YELLOW [facility] HospitalUrine Vkanjhe3592-40-10 16:22:00* Test Item Value Reference Range Interpretation Comments Urine Clarity (test code = 73868-1) HAZY CLEAR [facility] HospitalUrine Specific Falxock7781-13-35 16:22:00 * Test Item Value Reference Range Interpretation Comments Urine Specific [place] (test code = 5811-5) 1.005 1.010-1.[address] [facility] HospitalUrine uC8307-71-60 16:22:00* Test Item Value Reference Range Interpretation Comments Urine pH (test code = 79682-4) 6 5-7 [facility] Leukocyte Skagmkrf3327-16-48 16:22:00* Test Item Value Reference Range Interpretation Comments Urine Leukocyte Esterase (test code = 5799-2) TRACE NEGATIVE H [facility] Tiwahtl8379-81-89 16:22:00* Test Item Value Reference Range Interpretation Comments Urine Nitrite (test code = 11234-1) NEGATIVE NEGATIVE [facility] Igufgzb2903-91-22 16:22:00* Test Item Value Reference Range Interpretation Comments Urine Protein (test code = 5804-0) NEGATIVE NEGATIVE [facility] Glucose (UA)2018-12-18 16:22:00* Test Item Value Reference Range Interpretation Comments Urine Glucose (UA) (test code = 2349-9) 3+ NEGATIVE H [facility] Yvxgiaw0878-58-71 16:22:00* Test Item Value Reference Range Interpretation Comments Urine Ketones (test code = 01764-7) NEGATIVE NEGATIVE [facility] Flaqqvxxjnof9553-10-07 16:22:00* Test Item Value Reference Range Interpretation Comments Urine Urobilinogen (test code = 65820-0) 0.2 0.2-[address] [facility] HospitalUrine Vqnjolmug5079-38-78 16:22:00* Test Item Value Reference Range Interpretation Comments Urine Bilirubin (test code = 1978-6) NEGATIVE NEGATIVE [facility] [id number] 16:22:00* Test Item Value Reference Range Interpretation Comments Urine Blood (test code = 24604-9) NEGATIVE NEGATIVE [facility] [id number] 16:22:00* Test Item Value Reference Range Interpretation Comments Urine WBC (test code = 5821-4) 11-20 0-[address] [facility] HospitalU[facility] [id number] 16:22:00* Test Item Value Reference Range Interpretation Comments Urine RBC (test code = 64887-3) NONE 0-[address] [facility] HospitalU[facility] Ftogecde6280-03-80 16:22:00* Test Item Value Reference Range Interpretation Comments Urine Bacteria (test code = 35510-3) MANY NONE H [facility] Hospital[facility] Epithelial [id number] 16:22:00 * Test Item Value Reference Range Interpretation Comments Urine Epithelial Cells (test code = 55040-0) MODERATE NONE [facility] HospitalCHEST SINGLE (PORTABLE)2018-12-18 16:21:00 [facility] [address] [address] Patient Name: LEIA MUELLER MR #: [id number] : 1955 Age/Sex: 63/F Req #: [id number] Adm Physician: Ordered by: IVET[place] AUDIT[employer] Report #: [id number] Location: ER Room/Bed: Procedure: [id number] DX/ CHEST SINGLE (PORTABLE) Exam Date: 12/18/18 [...] COPY TO: LINUS SOFIA NP B-Type Natriuretic Gqbzmcj4947-91-61 16:18:00* Test Item Value Reference Range Interpretation Comments B-Type Natriuretic Peptide (test code = 99765-0) 31.0 0-[address] HospitalCreatine Kinase [id number] 16:18:00* Test Item Value Reference Range Interpretation Comments Creatine Kinase MB (test code = 17746-5) 0.40 0-5.[address] [facility] HospitalTroponin [id number] 16:18:00* Test Item Value Reference Range Interpretation Comments Troponin I (test code = MBS5910) < 0.001 0-0.300 [facility] Hylzk4267-54-04 16:12:00* Test Item Value Reference Range Interpretation Comments Sodium Level (test code = 2951-2) 131 136-[address] [facility] HospitalPotassium [id number] 16:12:00* Test Item Value Reference Range Interpretation Comments Potassium Level (test code = 2823-3) 4.1 3.5-5.[address] [facility] HospitalChloride [id number] 16:12:00* Test Item Value Reference Range Interpretation Comments Chloride Level (test code = 2075-0) 97 98-[address] HospitalCarbon Dioxide [id number] 16:12:00* Test Item Value Reference Range Interpretation Comments Carbon Dioxide Level (test code = 2028-9) 26 22-[address] [facility] [facility] HospitalAnion [id number] 16:12:00* Test Item Value Reference Range Interpretation Comments Anion Gap (test code = 68415-3) 12.1 8-[address] [facility] HospitalBlood Urea Zsvorqxk3272-33-09 16:12:00* Test Item Value Reference Range Interpretation Comments Blood Urea Nitrogen (test code = 3094-0) 14 7-[address] [facility] HospitalCreatinine2019-03-11 16:12:00* Test Item Value Reference Range Interpretation Comments Creatinine (test code = 2160-0) 0.87 0.57-1.[address] HospitalBUN/Creatinine Fmaou4932-32-29 16:12:00* Test Item Value Reference Range Interpretation Comments BUN/Creatinine Ratio (test code = 3097-3) 16 6- [facility] HospitalEstimat Glomerular Filtration Rate 2018-12-18 16:12:00* Test Item Value Reference Range Interpretation Comments Estimat Glomerular Filtration Rate (test code = 782887980) > 60 >60 Ranges were taken from the National Kidney Disease Education Program and the [facility] literature.Reference ranges:60 or greater: Oojgge16-90 ( for 3 consecutive months): Chronic kidney disease 15 or less: Kidney failureCH[facility] St[facility] HospitalGlucose Mvsvl1412-00-27 16:12:00* Test Item Value Reference Range Interpretation Comments Glucose Level (test code = SBQ3537) 477 74-118 HH Results repeated and called to REBEKA HERCULES at 1610 on 12/18/18 by Kwadwo More. Read back and verified.[facility] HospitalCalcium Level 2018-12-18 16:12:00* Test Item Value Reference Range Interpretation Comments Calcium Level (test code = 16100-4) 9.0 8.4-10.[address] HospitalTotal Sxltprhgg0887-39-08 16:12:00* Test Item Value Reference Range Interpretation Comments Total Bilirubin (test code = 1975-2) 0.3 0.2-1.[address] HospitalAspartate Amino Transf (AST/SGOT) 2018-12-18 16:12:00* Test Item Value Reference Range Interpretation Comments Aspartate Amino Transf (AST/SGOT) (test code = Aspartate Amino Transf (AST/SGOT)) 17 5-[address] HospitalAlanine Aminotransferase (ALT/SGPT) 2018-12-18 16:12:00* Test Item Value Reference Range Interpretation Comments Alanine Aminotransferase (ALT/SGPT) (test code = 1742-6) 40 0-[address] [facility] HospitalTotal Xcqslar7032-92-88 16:12:00* Test Item Value Reference Range Interpretation Comments Total Protein (test code = 2885-2) 6.7 6.5-8.[address] [facility] HospitalAlbumin2019-03-11 16:12:00* Test Item Value Reference Range Interpretation Comments Albumin (test code = 1751-7) 3.3 3.5-5.[address] [facility] HospitalGlobulin2019-03-11 16:12:00* Test Item Value Reference Range Interpretation Comments Globulin (test code = 55292-7) 3.4 2.3-3.[address] [facility] HospitalAlbumin/Globulin Svfxd0190-13-87 16:12:00 * Test Item Value Reference Range Interpretation Comments Albumin/Globulin Ratio (test code = 1759-0) 1.0 0.8-2.[address] [facility] HospitalAlkaline Acfqboxrtpy1774-18-80 16:12:00* Test Item Value Reference Range Interpretation Comments Alkaline Phosphatase (test code = 6768-6) 160 40-[address] HospitalCreatine Xbkopl1396-90-59 16:12:00* Test Item Value Reference Range Interpretation Comments Creatine Kinase (test code = 2157-6) 35 29-[address] [facility] HospitalProthrombin [id number] 15:59:00* Test Item Value Reference Range Interpretation Comments Prothrombin Time (test code = 5902-2) 12.7 11.9-14.[address] HospitalProthromb Time International Ratio 2018-12-18 15:59:00* Test Item Value Reference Range Interpretation Comments Prothromb Time International Ratio (test code = 6301-6) 0.91 Oral Anticoagulant Therapy INR Values:1. Low Intensity Therapy 1.5 - 2.02 . Moderate Intensity Therapy 2.0 - 3.03. High Intensity Therapy(1) 2.5 - 3. 54. High Intensity Therapy(2) 3.0 - 4.05. Panic Value INR > 5.[address] [facility] HospitalActivated Partial Thromboplast Time 2018-12-18 15:59:00* Test Item Value Reference Range Interpretation Comments Activated Partial Thromboplast Time (test code = 73853-5) 28.1 23.8-35.[address] [facility] HospitalWhite Blood [id number] 15:53:00* Test Item Value Reference Range Interpretation Comments White Blood Count (test code = 6690-2) 7.47 4.8-10.[address] [facility] HospitalRed Blood Rdpph8847-77-46 15:53:00* Test Item Value Reference Range Interpretation Comments Red Blood Count (test code = 789-8) 4.65 3.6-5.[address] [facility] HospitalHemoglobin2019-03-11 15:53:00* Test Item Value Reference Range Interpretation Comments Hemoglobin (test code = 65665-3) 13.6 12.0-16.[address] [facility] HospitalHematocrit2019-03-11 15:53:00* Test Item Value Reference Range Interpretation Comments Hematocrit (test code = 4544-3) 41.0 34.2-44.[address] [facility] HospitalMean Corpuscular Kequbj1446-73-21 15:53:00* Test Item Value Reference Range Interpretation Comments Mean Corpuscular Volume (test code = 787-2) 88.2 81-[address] HospitalMean Corpuscular Gfblbfikww2259-71-63 15:53:00* Test Item Value Reference Range Interpretation Comments Mean Corpuscular Hemoglobin (test code = 785-6) 29.2 28-[address] [facility] HospitalMean Corpuscular Hemoglobin Concent 2018-12-18 15:53:00* Test Item Value Reference Range Interpretation Comments Mean Corpuscular Hemoglobin Concent (test code = 786-4) 33.2 31-[address] HospitalRed Cell Distribution Eqlnv0911-61-06 15:53:00* Test Item Value Reference Range Interpretation Comments Red Cell Distribution Width (test code = 84703-7) 12.9 11.7 -14.[address] [facility] HospitalPlatelet Wjzwv3735-18-92 15:53:00* Test Item Value Reference Range Interpretation Comments Platelet Count (test code = 777-3) 232 140-[address] [facility] HospitalNeutrophils (%) (Auto)2018-12-18 15:53:00 * Test Item Value Reference Range Interpretation Comments Neutrophils (%) (Auto) (test code = 72697-6) 71.2 38.7-80.[address] HospitalLymphocytes (%) (Auto)2018-12-18 15:53:00 * Test Item Value Reference Range Interpretation Comments Lymphocytes (%) (Auto) (test code = 736-9) 19.8 18.0-39.[address] HospitalMonocytes (%) (Auto)2018-12-18 15:53:00* Test Item Value Reference Range Interpretation Comments Monocytes (%) (Auto) (test code = 5905-5) 4.7 4.4-11.[address] HospitalEosinophils (%) (Auto)2018-12-18 15:53:00 * Test Item Value Reference Range Interpretation Comments Eosinophils (%) (Auto) (test code = 713-8) 3.3 0.0-6.[address] HospitalBasophils (%) (Auto)2018-12-18 15:53:00* Test Item Value Reference Range Interpretation Comments Basophils (%) (Auto) (test code = 706-2) 0.7 0.0-1.[address] HospitalIM GRANULOCYTES %2018-12-18 15:53:00* Test Item Value Reference Range Interpretation Comments IM GRANULOCYTES % (test code = IM GRANULOCYTES %) 0.3 0.0- 1.[address] [facility] HospitalNeutrophils # (Auto)2018-12-18 15:53:00* Test Item Value Reference Range Interpretation Comments Neutrophils # (Auto) (test code = 751-8) 5.3 2.1-6.[address] [facility] HospitalLymphocytes # (Auto)2018-12-18 15:53:00* Test Item Value Reference Range Interpretation Comments Lymphocytes # (Auto) (test code = 93836-0) 1.5 1.0-3.[address] HospitalMonocytes # (Auto)2018-12-18 15:53:00* Test Item Value Reference Range Interpretation Comments Monocytes # (Auto) (test code = 742-7) 0.4 0.2-0.[address] HospitalEosinophils # (Auto)2018-12-18 15:53:00* Test Item Value Reference Range Interpretation Comments Eosinophils # (Auto) (test code = 711-2) 0.3 0.0-0.[address] HospitalBasophils # (Auto)2018-12-18 15:53:00* Test Item Value Reference Range Interpretation Comments Basophils # (Auto) (test code = 704-7) 0.1 0.0-0.[address] [facility] HospitalAbsolute Immature Granulocyte (auto 2018-12-18 15:53:00* Test Item Value Reference Range Interpretation Comments Absolute Immature Granulocyte (auto (laura t code = Absolute Immature Granulocyte (auto) 0.02 0-0.[address] [facility]
[2020-06-06] MEDS ORDERED: MELOXICAM 7.5 MG TAB PO PRN (19:15)
[2020-06-06] MEDS ORDERED: DEXTROSE 50% SYRINGE 50 ML IV PRN (19:15)
[2020-06-06 20:00] VITALS: BP 155/93
[2020-06-06] MEDS ORDERED: DULOXETINE HCL 20 MG DELAYED RELEASE PO SCH (21:00)
[2020-06-06] MEDS ORDERED: SIMVASTATIN 20 MG TAB PO SCH (21:00)
[2020-06-06 21:04] LABS: CREATINE KINASE 28 IU/L (29-168)
[2020-06-06] MEDS: INSULIN REGULAR, HUMAN 100 UNIT/1 ML 3ML VIAL SQ SCH (21:30)
[2020-06-06 21:47] VITALS: BP 155/93
[2020-06-06 21:56] VITALS: BP 155/93
[2020-06-06] MEDS: GABAPENTIN 300 MG CAP PO SCH (22:19)
[2020-06-07] VITALS: BP 135/80
[2020-06-07 00:14] VITALS: BP 155/93
[2020-06-07 04:00] VITALS: BP 120/76
[2020-06-07 05:10] LABS: CHOL/HDL RATIO 3.2 (3.0-3.6)
[2020-06-07 05:36] LABS: CREATINE KINASE MB 0.2 ng/mL (0-5.0)
--- NOTE | 2020-06-07 05:53 | NUR ---
Pt c/o chest pain and sharp headache. Rates 7/10 on pain scale. MD notified. Orders given for Morphine 2mg IV q4h prn . Will med per DEC. Notified patient of md orders. Will cont to tue. CE results and vital signs reported to .
[2020-06-07] MEDS ORDERED: MORPHINE SULFATE INJ 4 MG/ML INJ 1ML IV PRN (06:00)
[2020-06-07] MEDS ORDERED: PROMETHAZINE 12.5MG/ NACL 0.9% 12.5 MG/50 ML BAG IV PRN (06:45)
[2020-06-07] MEDS ORDERED: SODIUM CHLORIDE 0.9% 250ML 250 ML ONE (06:50)
[2020-06-07] MEDS ORDERED: GLIPIZIDE 5 MG TAB PO SCH (07:30)
[2020-06-07 08:00] VITALS: BP 159/76
[2020-06-07 08:03] VITALS: BP 159/76
[2020-06-07] MEDS: GABAPENTIN 300 MG CAP PO SCH (08:11)
[2020-06-07] MEDS: INSULIN REGULAR, HUMAN 100 UNIT/1 ML 3ML VIAL SQ SCH ×2 (08:15→12:09)
[2020-06-07] MEDS ORDERED: BUSPIRONE HCL 5 MG TAB PO SCH (09:00)
[2020-06-07] MEDS ORDERED: PANTOPRAZOLE SOD 40 MG TABEC PO SCH (09:00)
[2020-06-07] MEDS ORDERED: LOSARTAN POTASSIUM 100 MG TAB PO SCH (09:00)
[2020-06-07] MEDS ORDERED: FAMOTIDINE 20 MG TAB PO SCH (09:00)
[2020-06-07 11:45] VITALS: BP 151/85
--- NOTE | 2020-06-07 12:16 | NUR ---
Patient received discharge order from 's GUIDANCE DIRECTOR. Patient was given discharge instructions and education and verbalized understanding. Patient IV removed at 1200. Patient wheeled to car at 1213 with no issues or complaints.
--- NOTE | 2020-06-07 18:30 | Discharge Summary ---
PCP: Dr. Nargis Isaacs at [facility]. FINAL DISCHARGE DIAGNOSES: 1. Chest pain, ruled out acute coronary syndrome. 2. Hypertension. 3. Diabetes. 4. High cholesterol. 5. Gastroesophageal reflux disease. 6. Anxiety and depression. 7. Rectal pain, likely due to hemorrhoids. CONSULTANTS: None. PROCEDURES: CT abdomen and pelvis negative for acute process. HISTORY: Per HPI. HOSPITAL COURSE: This is a 65-year-old female, who presented to the ER with chest tightness and rectal pain. She reported the pain started a week ago after starting a new blood pressure medication amlodipine. She was advised to stop and follow up with her primary care doctor for re-evaluation of blood pressure and change of medication. She also complained of rectal pain in the mornings, she denies any blood in stool. She was advised to use olwx-emk-eaongyv Preparation H for possible hemorrhoids and advised to follow up with her PCP for GI workup, colonoscopy as it has been several years since she had colonoscopy. Otherwise, she feels better, vital signs stable, afebrile, labs reviewed and unremarkable. We will discharge her home today. PHYSICAL EXAMINATION: VITAL SIGNS: Temperature 98.2, pulse is 101, respirations 18, blood pressure 151/85, pulse ox is 100% on room air. GENERAL: No acute distress. HEENT: Normocephalic and atraumatic. CARDIOVASCULAR: Regular rate and rhythm. GI: Soft and nontender. LUNGS: Clear to auscultation. MUSCULOSKELETAL: Moves all extremities. NEUROLOGIC: Alert, awake, and oriented x3. CONDITION AT DISCHARGE: Stable and improved. DISCHARGE MEDICATIONS: Please see medication reconciliation list. Advised to stop taking amlodipine. FOLLOWUP: Follow up with PCP next week and GI in 1 to 2 weeks for outpatient workup. TIME SPENT: Total discharge time is 31 minutes. Dictated by MIKO Washington Keerthi Cosme MD MY/MODL /[id number] cc: Nargis Isaacs MD [facility]
--- NOTE | 2020-06-07 18:50 | History and Physical ---
PRIMARY CARE PHYSICIAN: Dr. Nargis Isaacs at [facility]. CHIEF COMPLAINT: Chest tightness and rectal pain. HISTORY OF PRESENT ILLNESS: This is a 65-year-old female with past medical history of hypertension, high cholesterol, diabetes, GERD, arthritis, and anxiety, presented to the ER with complaints of chest tightness and rectal pain, that has been present for the past week. She reports she was recently prescribed amlodipine for blood pressure and reports the chest pain or tightness started then. She continued to have the chest tightness worsening each day. She reports called her PCP and was notified to come to the ER for further evaluation. She denies any nausea, vomiting, abdominal pain, hematuria, diarrhea, melena, fever, or chills. In the ER, chest x-ray and CT abdomen and pelvis were insignificant for any acute process. PAST MEDICAL HISTORY: 1. Hypertension. 2. High cholesterol. 3. Diabetes mellitus type 2. 4. GERD. 5. Arthritis. 6. Anxiety and depression. PAST SURGICAL HISTORY: 1. She reports bilateral cataracts. 2. Hysterectomy. 3. BTL. FAMILY MEDICAL HISTORY: She reports diabetes. SOCIAL HISTORY: Denies any tobacco, alcohol, or illicit drug use. ALLERGIES: SHE IS ALLERGIC TO REGLAN, CODEINE, AND TRAMADOL. REVIEW OF SYSTEMS: Reviewed 12 systems, are negative except as reported in HPI. PHYSICAL EXAMINATION: VITAL SIGNS: Temperature 98.4, pulse is 101, respirations 17, blood pressure 159/76, pulse ox is 96 on room air. GENERAL: No acute distress. HEENT: Normocephalic and atraumatic. NECK: Supple. LUNGS: Clear to auscultation. CARDIOVASCULAR: Regular rate and rhythm. GI: Soft and nontender. NEUROLOGIC: Alert, awake, and oriented x3. MUSCULOSKELETAL: Moves all extremities. SKIN: Dry. PSYCH: Calm. LABORATORY DATA: WBC 9.08, hemoglobin 14.5, hematocrit 44.2, and platelets 304. Sodium 138, potassium 4.5, BUN 14, creatinine 0.8, estimated GFR is greater than 60, AST 13, ALT 18. Creatine kinase 36, CK-MB 0.40, troponin less than 0.001. Albumin 3.6, globulin 3.6, triglyceride 195, cholesterol 138, LDL 56, HDL 43. IMAGING: Chest x-ray, no acute cardiopulmonary process identified. CT abdomen and pelvis, no acute abdominopelvic process or significant interval change identified from last CT. IMPRESSION: 1. Chest pain, rule out acute coronary syndrome. Troponin x3 were negative. The patient reports chest tightness started after taking amlodipine. She is advised to stop taking amlodipine and follow up with PCP for further instructions. 2. Hypertension. Resume on losartan. 3. Diabetes type 2. Sliding scale insulin. 4. High cholesterol. On statin. 5. Gastroesophageal reflux disease. PPI. 6. Arthritis. NSAIDs p.r.n. 7. Anxiety and depression. Resume home medication. 8. Rectal pain. CT abdomen and pelvis was unremarkable. Advised to use olpg-vfi-hyduhdk Preparation H for hemorrhoids and follow up with PCP for GI workup outpatient. 9. Deep venous thrombosis prophylaxis. SCDs not indicated. Dictated by MIKO Washington Keerthi Cosme MD MY/MODL /[id number]
== END 2020-06-07 12:13 | disposition home or self-care (01) ==
LOC: ER 11:55 → ERHOLD 15:58 → MED/SURG 19:25
PROVIDERS: ADMIT Internal Medicine; ATTEND Internal Medicine
DX: R07.89 Other chest pain (principal); I10 Essential (primary) hypertension; E78.5 Hyperlipidemia, unspecified; K21.9 Gastro-esophageal reflux disease without esophagitis; K62.89 Other specified diseases of anus and rectum; F41.9 Anxiety disorder, unspecified; F32.9 Major depressive disorder, single episode, unspecified; E11.9 Type 2 diabetes mellitus without complications; Z11.59 Encounter for screening for other viral diseases
CPT/HCPCS: 36415 ×2; 71045; 74177; 80053; 80061; 82550 ×2; 82553 ×2; 84484 ×2; 85025; 93005; 96372 ×2; 99284; G0378 ×2; J1817; J2270; J2550; J7050; S0164; U0002

== ENCOUNTER 2022-02-16 16:13 | Emergency (ER) | payer MEDICARE ==
[~2022-02-16] VITALS: Ht 162.6 cm; Wt 93.9 kg
[2022-02-16] MEDS ORDERED: HYDROCODONE/APAP 7.5MG-325MG 1 EA TAB PO PRN (16:30)
[2022-02-16 16:56] LABS: BASOPHILS % 0.4 % (0.0-1.0); EOSINOPHILS # (AUTO) 0.1 (0.0-0.4); EOSINOPHILS % 1.2 % (0.0-6.0); HEMATOCRIT 45.1 % (34.2-44.1); HEMOGLOBIN 15.3 g/dL (12.0-16.0); LYMPHOCYTES # (AUTO) 2.6 (1.0-3.2); MEAN CORPUSCULAR HEMOGLOBIN 30.3 pg (28-32); MEAN CORPUSCULAR HGB CONC 33.9 g/dL (31-35); MEAN CORPUSCULAR VOLUME 89.3 fL (81-99); MONOCYTES # (AUTO) 0.5 (0.2-0.8); MONOCYTES % 7.3 % (4.4-11.3); NEUTROPHILS # (AUTO) 4.1 (2.1-6.9); NEUTROPHILS % 55.7 % (38.7-80.0); PLATELET COUNT 374 x10e3/uL (140-360); RED BLOOD COUNT 5.05 x10e6/uL (3.6-5.1); RED CELL DISTRIBUTION WIDTH 13.2 % (11.7-14.4)
[2022-02-16 17:19] LABS: ALBUMIN 3.6 g/dL (3.5-5.0); ALBUMIN/GLOBULIN RATIO 0.9 (0.8-2.0); ANION GAP 17.5 mmol/L (8-16); CALCIUM 9.1 mg/dL (8.4-10.2); CREATININE, SERUM 1.06 mg/dL (0.57-1.11); POTASSIUM 3.5 mmol/L (3.5-5.1)
== END 2022-02-16 20:20 | disposition home or self-care (01) ==
LOC: ER 16:34
DX: R23.3 Spontaneous ecchymoses (principal); M79.674 Pain in right toe(s); E11.65 Type 2 diabetes mellitus with hyperglycemia; I10 Essential (primary) hypertension; E78.5 Hyperlipidemia, unspecified; M54.9 Dorsalgia, unspecified; G89.29 Other chronic pain; Z85.42 Personal history of malignant neoplasm of other parts of uterus
CPT/HCPCS: 36415; 80053; 85025; 99283

== ENCOUNTER 2022-10-22 14:01 | Emergency (ER) | payer MEDICARE ==
[~2022-10-22] VITALS: Ht 162.6 cm; Wt 93.9 kg
[2022-10-22 14:28] LABS: BASOPHILS # (AUTO) 0.1 (0.0-0.1); BASOPHILS % 0.5 % (0.0-1.0); EOSINOPHILS # (AUTO) 0.3 (0.0-0.4); EOSINOPHILS % 2.4 % (0.0-6.0); HEMATOCRIT 42.2 % (34.2-44.1); HEMOGLOBIN 13.2 g/dL (12.0-16.0); LYMPHOCYTES # (AUTO) 2.9 (1.0-3.2); LYMPHOCYTES % 28.7 % (18.0-39.1); MEAN CORPUSCULAR HEMOGLOBIN 29.9 pg (28-32); MEAN CORPUSCULAR HGB CONC 31.3 g/dL (31-35); MEAN CORPUSCULAR VOLUME 95.7 fL (81-99); MONOCYTES # (AUTO) 0.4 (0.2-0.8); MONOCYTES % 4.2 % (4.4-11.3); NEUTROPHILS # (AUTO) 6.6 (2.1-6.9); NEUTROPHILS % 63.9 % (38.7-80.0); PLATELET COUNT 343 x10e3/uL (140-360); RED BLOOD COUNT 4.41 x10e6/uL (3.6-5.1); RED CELL DISTRIBUTION WIDTH 13.4 % (11.7-14.4)
[2022-10-22 14:54] LABS: ALBUMIN 3.6 g/dL (3.5-5.0); ALBUMIN/GLOBULIN RATIO 1.1 (0.8-2.0); ANION GAP 16.9 mmol/L (8-16); CALCIUM 8.9 mg/dL (8.4-10.2); CREATININE, SERUM 0.9 mg/dL (0.57-1.11); POTASSIUM 3.9 mmol/L (3.5-5.1)
[2022-10-22] MEDS ORDERED: KETOROLAC TROMETHAMINE 30 MG/ML VIAL IV ONE (15:07)
[2022-10-22] MEDS ORDERED: OMEPRAZOLE40 MG PO (15:08)
== END 2022-10-22 15:28 | disposition home or self-care (01) ==
LOC: ER 14:14
DX: R07.89 Other chest pain (principal); R10.13 Epigastric pain; I10 Essential (primary) hypertension; E11.65 Type 2 diabetes mellitus with hyperglycemia; E78.5 Hyperlipidemia, unspecified; M54.9 Dorsalgia, unspecified; G89.29 Other chronic pain; Z85.42 Personal history of malignant neoplasm of other parts of uterus
CPT/HCPCS: 36415; 71045; 80053; 83690; 83880; 84484; 85025; 85379; 93005; 99284; J1885